=== PATIENT | female | born 1940 | race Caucasian/White ===

== ENCOUNTER 2018-03-06 14:22 | Outpatient (CLI) | payer MEDICARE, BC ==
--- NOTE | 2018-03-06 16:57 | ULT ---
BILATERAL UPPER EXTREMITY ULTRASOUND VESSEL MAPPING FOR DIALYSIS ACCESS: 03/06/18 HISTORY: 77-year-old female with ESRD. RIGHT UPPER EXTREMITY BRACHIAL ARTERY: 2.7 mm RADIAL ARTERY: 1.4 mm ULNAR ARTERY: 1.1 mm CEPHALIC VEIN Proximal Arm: 1.2 mm Mid Arm: 1.3 mm Distal Arm: 1.2 mm Antecubital Fossa: 1.5 mm Proximal Forearm: 1.2 mm Mid Forearm: 1.3 mm Distal Forearm: 0.9 mm BASILIC VEIN Proximal Arm: 3.5 mm Mid Arm: 3.0 mm Distal Arm: 2.6 mm Antecubital Fossa: 2.6 mm Proximal Forearm: 1.3 mm Mid Forearm: 1.2 mm Distal Forearm: 1.3 mm LEFT UPPER EXTREMITY BRACHIAL ARTERY: 2.9 mm RADIAL ARTERY: 1.6 mm ULNAR ARTERY: 1.3 mm CEPHALIC VEIN Proximal Arm: 1.2 mm Mid Arm: 1.0 mm Distal Arm: 1.3 mm Antecubital Fossa: 1.0 mm Proximal Forearm: 1.3 mm Mid Forearm: 1.5 mm Distal Forearm: 1.3 mm BASILIC VEIN Proximal Arm: 2.8 mm Mid Arm: 2.5 mm Distal Arm: 2.0 mm Antecubital Fossa: 1.8 mm Proximal Forearm: 1.8 mm Mid Forearm: 1.5 mm Distal Forearm: 1.0 mm POS: [facility]
== END 2018-03-06 14:23 | disposition home or self-care (01) ==
LOC: BICULT 14:22
PROVIDERS: ATTEND Internal Medicine Nephrology
DX: Z01.818 Encounter for other preprocedural examination (principal); N18.6 End stage renal disease
CPT/HCPCS: 93970; G0365

== ENCOUNTER 2018-03-13 16:37 | Inpatient (IN) | payer MEDICARE, BC ==
[~2018-03-13 16:37] MED LIST: Heparin 10,000 UNITS/ 10 ML VIAL ONE; Heparin 10,000 UNITS/1 ML VIAL ONE
[2018-03-13 17:07] LABS: #Eosinphils 0.1 thou/uL (0.0-0.7); #Lymphocytes 1.2 thou/uL (1.20-3.40); #Monocytes 0.6 thou/uL (0.11-0.59); #Neutrophils 7.4 thou/uL (1.40-6.50); %Basophils 0.5 % (0.0-1.0); %Eosinophils 1.3 % (0.0-10.0); %Lymphocytes 12.4 % (21.0-51.0); %Monocytes 6.7 % (0.0-10.0); %Neutrophils 79.2 % (42.0-75.0); Hemoglobin 13.3 g/dL (12.0-16.0); Mean Corpuscular HGB CONC 30.1 g/dL (32.0-36.0); Mean Platelet Volume 7.6 fL (7.4-10.4); Platelet Count 402 thou/uL (130-400); Red Blood Cell (RBC) Count 4.76 mill/uL (4.20-5.40); White Blood Cell (WBC) Count 9.3 thou/uL (4.8-10.8)
[2018-03-13 17:30] LABS: ALT (SGPT) 18 U/L (8-55); AST (SGOT) 19 U/L (5-34); Albumin 2.8 g/dL (3.4-4.8); Alkaline Phosphatase 143 U/L (40-150); Anion Gap 16 mmol/L (10-20); BUN (Urea Nitrogen) 41 mg/dL (9.8-20.1); Bilirubin, Total 0.4 mg/dL (0.2-1.2); Calc. Creatinine Clearance 0 mL/min (70-130); Calcium 9.1 mg/dL (7.8-10.44); Carbon Dioxide 27 mmol/L (23-31); Chloride 95 mmol/L (98-107); Estimated GFR-MDRD 9; Globulin 2.9 g/dL (2.4-3.5); Glucose 94 mg/dL (83-110); Potassium 4.3 mmol/L (3.5-5.1); Protein, Total 5.7 g/dL (6.0-8.3); Sodium 134 mmol/L (136-145)
[2018-03-13 17:35] LABS: Magnesium 1.7 mg/dL (1.6-2.6)
[2018-03-13 17:45] LABS: CKMB 5.9 ng/mL (0-6.6)
--- NOTE | 2018-03-13 19:38 | RAD ---
AP VIEW CHEST: 03/13/18 HISTORY: Dyspnea. AP view chest obtained on 03/13/18. Comparison made to a previous exam from 02/18/11. AP view chest demonstrates bilateral breast augmentation prosthesis seen which are severely calcified . There is marked calcification of the mitral annulus. There is marked calcification of the aorta. Some areas of patchy density seen in both lung bases, compatible with bibasilar atelectasis or pneumo leo. Mild pulmonary vascular congestion seen. IMPRESSION: Bibasilar areas of patchy density with loss of right and left hemidiaphragm lung interfaces compatibl e with possible bibasilar pneumonia. POS: ANJALI
[2018-03-13 21:21] LABS: Troponin I 0.053 ng/mL (< 0.028)
[2018-03-13 23:10] LABS: Troponin I 0.056 ng/mL (< 0.028)
[2018-03-13] MEDS ORDERED: Senokot S 8.6-50 MG TAB PO PRN (23:33)
[2018-03-13] MEDS ORDERED: Acetaminophen 325 MG TAB PO PRN (23:33)
[2018-03-13] MEDS ORDERED: Mometasone/Formoterol 120 PUFF INHALER INH PRN (23:37)
--- NOTE | 2018-03-14 01:51 | CON ---
DATE OF CONSULTATION: 03/13/2018 HISTORY OF PRESENT ILLNESS: Ms. Ley is a 77-year-old white female with known history of ESRD - c urrently on peritoneal dialysis. She was admitted for congestive heart failure/shortness of breath. She has had multiple admissions for the shortness of breath in the past. Etiology is combined COPD exacerbations as well as from CHF. The patient was unable to do regular peritoneal dialysis in the l ast week or so. She missed, according to patient, 1-2 sessions. Then, she was at Dr[facility]. At that time, I planned cuffed hemodialysis catheter was being done, but the patient w as unable to lie flat due to congestive heart failure. She is now at the ER for further management. We are now admitting this patient for emergent peritoneal dialysis as well as possible initiation of hemodialysis. REVIEW OF SYSTEMS: Positive for shortness of breath, no nausea, no vomiting. Increased forgetfulnes s. No fever or chills, no abdominal pain, no gross hematuria, no dysuria, no urinary frequency. Pos itive for productive cough. No fever or chills. No hematochezia, no melena. Appetite and energy le supriya is decreased. HOME MEDICATIONS: Includes the following, prednisone 20 mg tab p.o. b.i.d., Mucinex 600 mg p.o. q.12 h., simvastatin 1 tablet at bedtime, Protonix 40 mg tab once a day, Dulera oral inhaler two puffs b. i.d., Levaquin 250 mg p.o. daily, Fosrenol 750 mg t.i.d. with meals, Niferex 150 mg once a day, DuoNe b q.6 hours, Doxepin 50 mg at bedtime, Aricept 10 mg at bedtime, Sensipar 30 mg daily, Calcitriol 0.5 mcg every day. PAST MEDICAL HISTORY: 1. End-stage renal disease. 2. Hypertension. 3. Early dementia. 4. Chronic obstructive pulmonary disease. 5. Status post CHF. 6. Chronic anemia of chronic renal disease. 7. Secondary hyperparathyroidism. PAST SURGICAL HISTORY: 1. Status post PD catheter placement. 2. Status post intubation secondary to acute respiratory failure. 3. Status post upper and lower GI endoscopy. 4. Status post parathyroidectomy. 5. Status post bilateral tubal ligation. 6. Status post back surgery. SOCIAL HISTORY: The patient lives in [place] and lives alone. No alcohol use. Status post blood tr ansfusion. No IV drug abuse. Currently not smoking, but did smoke for many years. Four children. ALLERGIES: CODEINE, ERYTHROMYCIN. TRAUMA: None. IMMUNIZATIONS: Up to date. HOSPITALIZATIONS: Please see past medical history. FAMILY HISTORY: No family history of ESRD. PHYSICAL EXAMINATION: VITAL SIGNS: Blood pressure 150/78, heart rate 70, pulse oximetry 100% on 2 liters. GENERAL: Awake, supine, comfortable, not in overt distress. SKIN: Adequate turgor. HEENT: She has pinkish conjunctivae, anicteric sclerae. NECK: No neck mass, no carotid bruits, no JVD. CHEST: No deformities. LUNGS: Decreased breath sounds, no wheezing. HEART: Normal sinus rhythm. No murmur, no gallops, no rubs. ABDOMEN: Globular, soft, nontender, no masses. EXTREMITIES: No edema, no deformities. NEUROLOGIC: Moving all extremities. No tremors. No asterixes. No ataxia. LABORATORY: Of 03/13/2018, white count 9.3, hemoglobin 13.3. Sodium 134, potassium 4.3, chloride 95 , carbon dioxide 27, BUN 41, creatinine 4.86, glucose 94, calcium 9.1, AST 19, ALT 18. BNP 1333. PT H 246 on 04/28/2016. Chest x-ray pending. ASSESSMENT AND PLAN: 1. Shortness of breath, multifactorial etiology. Consider the possibility of congestive heart failu re due to his missed peritoneal dialysis. I am doing a quick 4.25% PD solution exchange of 1 liter w ith each fill volume. We will do a quick exchange and hoping we can do significant ultrafiltration/f luid removal with this patient. After the 3 quick exchange of the PD fluid, we will maintain on cont inuous cycling peritoneal dialysis at 2.5 liters fill volume using 4.25% peritoneal dialysis solution to enhance further ultrafiltration. 2. End-stage renal disease. We will continue current continuous cycling peritoneal dialysis regimen . The patient no longer interested in pursuing peritoneal dialysis. We will consult surgery for mireya cement of a cuffed hemodialysis catheter. 3. Anemia -- no indication for any Epogen at the present time. 4. Chronic obstructive pulmonary disease. Resume DuoNeb q.6 hours p.r.n. Overall, agree with salomóne nt management.
[2018-03-14 04:55] LABS: #Basophils 0.1 thou/uL (0.0-0.2); #Eosinphils 0.1 thou/uL (0.0-0.7); #Lymphocytes 1.1 thou/uL (1.20-3.40); #Monocytes 0.7 thou/uL (0.11-0.59); #Neutrophils 6.7 thou/uL (1.40-6.50); %Basophils 0.7 % (0.0-1.0); %Eosinophils 1.6 % (0.0-10.0); %Lymphocytes 12.9 % (21.0-51.0); %Monocytes 8.4 % (0.0-10.0); %Neutrophils 76.3 % (42.0-75.0); Hemoglobin 12.1 g/dL (12.0-16.0); Mean Corpuscular HGB CONC 29.3 g/dL (32.0-36.0); Mean Corpuscular Hemoglobin 27.4 pg (27.0-31.0); Mean Corpuscular Volume 93.7 fL (78.0-98.0); Mean Platelet Volume 8.2 fL (7.4-10.4); Platelet Count 386 thou/uL (130-400); RBC Distribution Width 14.1 % (11.5-14.5); Red Blood Cell (RBC) Count 4.42 mill/uL (4.20-5.40); White Blood Cell (WBC) Count 8.7 thou/uL (4.8-10.8)
--- NOTE | 2018-03-14 05:11 | HP ---
CHIEF COMPLAINT: Shortness of breath. HISTORY OF PRESENT ILLNESS: Patient is a very pleasant 77-year-old female with past medical history of hypertension and end-stage renal disease on dialysis to peritoneal dialysis, who comes into the [facility] also with a history of COPD on chronic oxygen of 2 liters who was sent in from [facility] for shortness of breath. Patient stated that she has been short of breath for the past couple of weeks. She normally sleeps in a recliner. She normally uses 2 liters of oxygen. Patient states ashley t she has not had any fevers or chills. She was recently at [facility] about 2 weeks ago and was treated for which appears to be like for possible COPD exacerbation. Patient stated that e was given steroids, which helped her feel much better. Patient also states that she had a recent chocardiogram done and was told that she had some valvular dysfunction. Patient stated that she went to see her sign painter helper today, who tried to intervene with a catheter for hemodialysis; however, [facility] patient was unable to lie flat. Her shortness of breath worsened and she was transported to the ER for further evaluation. Patient did state that she lives in [place] on her way [place] to [facility] sign painter helper's office, she ran out of her oxygen; however, she stated that she felt fine. She did not think that she required oxygen; however, when the procedure occurred in the office, she just got very very short of breath, which then concerned the physician and who asked her to come into the ER f or further evaluation. Patient denies any chest pain, any fevers, any cough more than usual. She de nies any more sputum production either. PAST MEDICAL HISTORY: As of the following: She is on end-stage renal disease on peritoneal dialysis . She has a history of COPD on 2 liters of oxygen. She has a history of hypertension. She has a hi story of gastric ulcers. PAST SURGICAL HISTORY: She has had cholecystectomy, peritoneal shunt placed. SOCIAL HISTORY: She is a former smoker. She drinks socially. She is currently a FULL CODE. REVIEW OF SYSTEMS: All negative except for the ones mentioned above in the HPI and again patient's c ode status is FULL. FAMILY HISTORY: No history of heart disease or cancer. ALLERGIES: She is allergic to CODEINE and ERYTHROMYCIN. MEDICATIONS: Per her MAR, which are as the following: Calcitriol 0.5 p.o. daily, vitamin D3 of 2000 units daily, cinacalcet (Sensipar) 30 mg daily, Aricept 10 mg at bedtime, doxepin 50 mg at bedtime, folic acid 1 p.o. daily, albuterol 3 mL q.6 hours as scheduled, iron 150 mg daily, Dulera 2 puffs alexi ly, simvastatin 40 mg daily, tiotropium 18 mcg daily. PHYSICAL EXAMINATION: VITAL SIGNS: As of the following temperature of 98.8, heart rate of 103, 20 respirations, 95% on 2 l iters, 133/69. GENERAL: She is awake, alert, oriented x3. She does not appear in significant distress. CARDIOVASCULAR: S1, S2 present. She does have a systolic murmur, which is heard in her right sterna l border and her left sternal border with some mild radiation to her right clavicle area. LUNGS: She does have decreased diminished breath sounds to bilateral lower bases. She does have marbin e mild expiratory wheeze, however, not significant. ABDOMEN: Soft, nontender. Bowel sounds are present x2. Her PD catheter looks intact. LOWER EXTREMITIES: She does have +2 pitting edema lower extremity. NEUROVASCULAR GUTIERREZ: She is intact, 5/5 upper extremity, 5/5 lower extremity strength. Sensation is intact. SKIN: She does not have any breakdown. Patient normally walks with a walker. LABORATORY RESULTS: As of the following: WBC of 9.3, hemoglobin of 13.3, hematocrit of 44.2, platel ets of 402. Chemistry: Sodium of 134, potassium 4.3, BUN of 41, creatinine of 4.86. Mild elevation of troponin. Her BNP is 133.9. Her chest x-ray does appear that she does have implants and also ap pears that she does have some bibasilar patchy density; however, patient has not had any cough or fev er. She does appear to be most likely pleural effusion. ASSESSMENT AND PLAN: Patient is a very pleasant 77-year-old female who presents to the hospital with shortness of breath. 1. Shortness of breath. This could be secondary to volume overload either from not enough dialysis versus chronic obstructive pulmonary disease exacerbation versus possible cardiac related issues. I do not have a previous echocardiogram in the system; however, she did have a recent echocardiogram do olu at [facility]. I have asked the nurses to provide a copy from there. Sin cheikh she stated that she did have some mild valvular disorder and she does have murmur on physical exam ination. Patient does not make significant urine. I do not think diuretics will be efficient with p atient. We will continue the PD dialysis per Nephrology, who has been consulted. We will also start the patient on some very low dose steroids of 20 mg daily for only 5 days to see if this would help the patient. Patient is currently requiring only 2 liters of oxygen and is not requiring any more th an her baseline. However, patient at baseline is unable to lie flat. She does have pleural effusion s, which are new from her prior 2016 x-rays. 2. History of chronic obstructive pulmonary disease. She is currently on 2 liters. We will continu e that. We will continue her DuoNebs and her home medications. 3. End-stage renal disease on dialysis. We will continue her dialysis PD for now. She was supposed to get a tunnel catheter; however, patient cannot lie flat. This is a difficult situation. 4. Deep venous thrombosis prophylaxis. We will put patient on heparin subcutaneous and continue to monitor the patient.
[2018-03-14 05:26] LABS: Anion Gap 15 mmol/L (10-20); BUN (Urea Nitrogen) 40 mg/dL (9.8-20.1); Calc. Creatinine Clearance 9 mL/min (70-130); Calcium 8.7 mg/dL (7.8-10.44); Carbon Dioxide 27 mmol/L (23-31); Chloride 99 mmol/L (98-107); Estimated GFR-MDRD 9; Glucose 107 mg/dL (83-110); Potassium 4.4 mmol/L (3.5-5.1); Sodium 137 mmol/L (136-145)
[2018-03-14] MEDS ORDERED: Heparin 5,000 UNITS/ML VIAL SC SCH (09:00)
[2018-03-14] MEDS ORDERED: Spiriva 18 MCG CAP (Box of 5 Caps) INH SCH (09:00)
--- NOTE | 2018-03-14 09:11 | PRG ---
DATE OF SERVICE: 03/14/2018 SUBJECTIVE: Ms. Ley is a 77-year-old white female with ESRD - currently on peritoneal dialysis a nd was admitted for shortness of breath secondary to congestive heart failure. This patient has been missing her peritoneal dialysis. She is confused about doing her PD. The family and the patient lee ve requested to be converted to hemodialysis. An attempt to place a dialysis catheter with the [facility] was not successful since the patient was unable to lay flat. I did initiate earlier periton eal dialysis with her yesterday due to her volume overload. Her breathing is much improved. No new complaints. No chest pain. Shortness of breath is improved. PHYSICAL EXAMINATION: VITAL SIGNS: Blood pressure is 108/60, heart rate 97, respiratory rate 16, temperature 98.1, pulse o x 97%. GENERAL: Awake, alert, supine, comfortable, not in overt distress. SKIN: Adequate turgor. HEENT: She has pinkish conjunctivae, anicteric sclerae. NECK: No neck mass, no carotid bruits, no JVD. CHEST: No deformities. LUNGS: Decreased breath sounds. Occasional wheezing. HEART: Normal sinus rhythm. No murmur, no gallops or rubs. ABDOMEN: Globular, soft, nontender, no masses. Positive for PD catheter. EXTREMITIES: Positive for edema, but no deformities. MEDICATIONS: 03/14/2018 - Reviewed. LABORATORY: 03/14/2018 - White count 8.7, hemoglobin 12.1. Sodium 137, potassium 4.4, chloride 99, carbon dioxide 27, BUN 40, creatinine 4.81, glucose 107, calcium 8.7. ASSESSMENT AND PLAN: 1. Congestive heart failure, - much improved with peritoneal dialysis. We were using a 4.25% PD valerio ution last night to enhance ultrafiltration. Due to the improved shortness of breath we will convert her to a 2.5% PD solution tonight. 2. End-stage renal disease. We will continue nocturnal peritoneal dialysis with this patient. We a re awaiting placement of a cuffed hemodialysis catheter. Once this is done, we will convert her to h emodialysis. 3. Chronic obstructive pulmonary disease. Continuing DuoNeb and prednisone. Overall, I agree with current management.
[2018-03-14] MEDS: Calcitriol 0.25 MCG CAP PO SCH (09:58)
[2018-03-14] MEDS: Famotidine 20 MG TAB PO SCH (09:58)
[2018-03-14] MEDS: Cinacalcet HCl 30 MG TAB PO SCH (09:58)
[2018-03-14] MEDS: Iron Polysaccharides Complex 150 MG CAP PO SCH (09:58)
[2018-03-14] MEDS: predniSONE 20 MG TAB PO SCH (09:58)
[2018-03-14] MEDS: Folic Acid/Vit B Comp W-C PO SCH (09:59)
[2018-03-14] MEDS ORDERED: CEFAZOLIN/Water 2 GM/20 ML SYRINGE SLOW IVP SCH ×2 (17:00→19:30)
--- NOTE | 2018-03-14 17:40 | PDOC.PN ---
- Subjective Encounter Start Date: 03/14/18 Encounter Start Time: 10:30 Patient seen and examined for Volume overload. SOB improving. No new complaints. No overnight events - Objective Resuscitation Status: Resuscitation Status FULL:Full Resuscitation MAR Reviewed: Yes Vital Signs & Weight: Vital Signs (12 hours) Temp Pulse Resp BP Pulse Ox 03/14/18 15:07 98.0 F 105 H 18 121/68 95 03/14/18 13:49 82 18 96 03/14/18 11:26 98.5 F 100 18 141/77 H 98 03/14/18 07:40 98.1 F 97 16 108/60 97 03/14/18 07:30 97 03/14/18 06:32 102 H 16 97 Weight Weight 126 lb 4.8 oz I&O: 03/13/18 03/14/18 03/15/18 06:59 06:59 06:59 Intake Total 600 Balance 600 Result Diagrams: 03/14/18 03:37 03/14/18 03:37 EKG Reviewed by me: Yes (Tele SR) Phys Exam - Physical Examination Constitutional: NAD Respiratory: no wheezing Bibasilar rales with scat rhonchi Cardiovascular: RRR, no rub Gastrointestinal: soft, non-tender, positive bowel sounds Musculoskeletal: no edema Neurological: moves all 4 limbs Dx/Plan - Plan DVT proph w/heparin, DVT proph w/SCDs 1. SOB due to Volume overload 2. ESRD on PD 3. Chronic Resp failure on home O2 4. COPD 5. HTN 6. Elevated troponins due to demand ischemia/Other issues per previous notes PLAN: Hemodialysis access Add Fluid restriction Cont Nebs with low dose steroids Cont other meds as below Review of Systems - Review of Systems Cardiovascular: negative: chest pain, palpitations, orthopnea, paroxysmal nocturnal dyspnea, edema, light headedness, other Gastrointestinal: negative: Nausea, Vomiting, Abdominal Pain, Diarrhea, Constipation, Melena, Hematochezia, Other - Medications/Allergies Allergies/Adverse Reactions: Allergies Allergy/AdvReac Type Severity Reaction Status Date / Time codeine Allergy Verified 04/27/16 21:10 erythromycin base Allergy Verified 04/27/16 21:10 Medications: Current Medications Acetaminophen (Tylenol) 650 mg PO Q4H PRN PRN Reason: Headache/Fever/Mild Pain (1-3) Albuterol/Ipratropium (Duoneb) 3 ml NEB [id number] [facility] Last Admin: 03/14/18 13:49 Dose: 3 ml Atorvastatin Calcium (Lipitor) 20 mg PO HS [facility] Calcitriol (Rocaltrol) 0.5 mcg PO DAILY [facility] Last Admin: 03/14/18 09:58 Dose: 0.5 mcg Cefazolin Sodium (Ancef) 2 gm SLOW IVP ONCALL-OR [facility] Cholecalciferol (Vitamin D3) 2,000 units PO DAILY [facility] Last Admin: 03/14/18 09:58 Dose: 2,000 units Cinacalcet (Sensipar) 30 mg PO QAM[facility] Last Admin: 03/14/18 09:58 Dose: 30 mg Donepezil HCl (Aricept) 10 mg PO HS [facility] Doxepin HCl (Sinequan) 50 mg PO HS [facility] Famotidine (Pepcid) 20 mg PO DAILY [facility] Last Admin: 03/14/18 09:58 Dose: 20 mg Heparin Sodium (Porcine) (Heparin) 5,000 units SC BID [facility] Mometasone Furoate/Formoterol Fumar (Dulera 200 Mcg/5 Mcg Inhaler) 2 puff INH BIDPRN PRN PRN Reason: SOB &/or Wheezing Polysaccharide Iron Complex (Niferex) 150 mg PO QA[facility] Last Admin: 03/14/18 09:58 Dose: 150 mg Prednisone (Prednisone) 20 mg PO QA[facility] Stop: 03/18/18 08:00 Last Admin: 03/14/18 09:58 Dose: 20 mg Senna/Docusate Sodium (Senokot S) 2 tab PO BIDPRN PRN PRN Reason: Constipation Vitamin B Complex/Vit C/Folic Acid (Nephro-Rolando Tablet) 1 tab PO DAILY [facility] Last Admin: 03/14/18 09:59 Dose: 1 tab
[2018-03-14] MEDS: Atorvastatin Calcium 20 MG TAB PO SCH (21:38)
[2018-03-14] MEDS: Donepezil HCl 10 MG TAB PO SCH (21:38)
[2018-03-14] MEDS: Doxepin HCl 25 MG CAP PO SCH (21:38)
[2018-03-14] MEDS: Heparin 5,000 UNITS/ML VIAL SC SCH (21:39)
--- NOTE | 2018-03-15 02:09 | HP ---
HISTORY OF PRESENT ILLNESS: Tri Ley is a 77-year-old female from [place] on peritoneal dialys is with catheter placed elsewhere. She is inadequate dialysis. Dr. Grimes has asked me to see her rega rding removal of her peritoneal dialysis catheter, placement of a hemodialysis catheter, and placemen t of right upper arm fistula. She did have ultrasound vein mapping both arms on 03/06/2018. Right c ephalic vein 1.2, 1.3, 1.2, 1.5 mm antecubital fossa. Basilic vein 3.5, 3.0, 2.6, 2.6 mm, antecubita l fossa 1.3 mm distally. Left cephalic vein 1.2, 1.0, 1.3, 1.0 mm antecubital fossa. Basilic vein 2 .8, 2.5, 2.0. Plan is to place a right arm fistula and a hemodialysis catheter and remove her perito lisandra dialysis catheter in the next 48 hours. ALLERGIES: CODEINE, ERYTHROMYCIN BASE. TOBACCO: None. ALCOHOL: None. MEDICATIONS: Spiriva, K-Dur, Sensipar, vitamin D3, calcitriol, Nephro-Rolando, Sinequan, Aricept, simvastatin. PAST SURGICAL HISTORY: Peritoneal dialysis catheter, laparoscopic cholecystectomy, temporary hemodia lysis catheter and recovered cholecystectomy. PAST MEDICAL HISTORY: End-stage renal disease, history of COPD on 2 liters home oxygen. Tobacco isabella sation more than 10 years ago, history of peptic ulcer disease. PHYSICAL EXAMINATION: VITAL SIGNS: 5 feet 3, 126 pounds, 22 BMI, 98 degrees, 105, 120/68. HEAD, EYES, EARS, NOSE, AND THROAT: Unremarkable. LUNGS: Clear to auscultation. CARDIAC: Regular rate and rhythm without murmur or gallop. ABDOMEN: Soft, nontender. Peritoneal dialysis catheter in place. IV: Right hand. No visibly magda rkable vein present. Palpable radial pulses. LABORATORY DATA: White count 8, hemoglobin 12.1. Basic metabolic profile was normal except for woodruff ges consistent with end-stage renal disease. BNP 1333. ASSESSMENT AND PLAN: Inadequate peritoneal dialysis. We will plan removal of her peritoneal dialysi s catheter placement, hemodialysis catheter, and right arm fistula. She possibly will need a staged basilic vein fistula or a graft pending operative findings. We will plan this Monday morning.
[2018-03-15] MEDS: predniSONE 20 MG TAB PO SCH (08:17)
[2018-03-15] MEDS: Iron Polysaccharides Complex 150 MG CAP PO SCH (08:17)
[2018-03-15] MEDS: Cinacalcet HCl 30 MG TAB PO SCH (08:17)
[2018-03-15] MEDS: Calcitriol 0.25 MCG CAP PO SCH (08:17)
[2018-03-15] MEDS: Folic Acid/Vit B Comp W-C PO SCH (08:18)
[2018-03-15] MEDS: Famotidine 20 MG TAB PO SCH (08:18)
[2018-03-15] MEDS: Heparin 5,000 UNITS/ML VIAL SC SCH ×2 (08:18→21:26)
--- NOTE | 2018-03-15 09:08 | PRG ---
DATE OF SERVICE: 03/15/2018 SUBJECTIVE: Ms. Ley is a 77-year-old white female with ESRD - currently on peritoneal dialysis. The patient is unable to do peritoneal dialysis at home. She is now being converted to hemodialysis . Surgical consult has been done for placement of a cuffed hemodialysis catheter placement. No othe r complaints, doing well. Tolerated peritoneal dialysis. She initially came in with volume overload , but this is much improved with peritoneal dialysis. PHYSICAL EXAMINATION: VITAL SIGNS: Blood pressure 131/72, heart rate 108, respiratory rate 20, temperature 98.2, pulse ox 95%. GENERAL: Noted to be awake, alert, sitting comfortable, not in distress. SKIN: Adequate turgor. HEENT: She has pinkish conjunctivae, anicteric sclerae. NECK: No neck mass, no carotid bruits, no JVD. CHEST: No deformities. LUNGS: Decreased breath sounds. No wheezing. HEART: Normal sinus rhythm. No murmur, no gallops, no rubs. ABDOMEN: Globular, soft, nontender, no masses. Positive for PD catheter. EXTREMITIES: No edema, no deformities. MEDICATIONS: 03/15/2018 - Reviewed. LABORATORY: 03/14/2018 - White count 8.7, hemoglobin 12.1. Sodium 137, potassium 4.4, chloride 99, carbon dioxide 27, BUN 40, creatinine 4.81, calcium 8.7. ASSESSMENT AND PLAN: 1. End-stage renal disease, stable. We will continue current CCPD regimen until we can get the hemo dialysis catheter placed and then we will convert her to hemodialysis. 2. Chronic obstructive pulmonary disease. Continue DuoNeb. 3. Dementia. Continue Aricept. Overall, prognosis remains guarded.
--- NOTE | 2018-03-15 17:54 | PDOC.PN ---
- Subjective Encounter Start Date: 03/15/18 Encounter Start Time: 11:00 Patient seen and examined for Volume overload. No new complaints. No overnight events - Objective Resuscitation Status: Resuscitation Status FULL:Full Resuscitation MAR Reviewed: Yes Vital Signs & Weight: Vital Signs (12 hours) Temp Pulse Resp BP Pulse Ox 03/15/18 15:56 98 F 103 H 26 H 124/59 L 96 03/15/18 14:25 98 20 94 L 03/15/18 11:59 98.5 F 112 H 26 H 134/71 98 03/15/18 10:34 109 H 20 95 03/15/18 07:10 98.2 F 108 H 20 131/72 95 03/15/18 06:36 84 18 94 L Weight Weight 123 lb 9.6 oz I&O: 03/14/18 03/15/18 03/16/18 06:59 06:59 06:59 Intake Total 900 600 Balance 900 600 Result Diagrams: 03/14/18 03:37 03/14/18 03:37 EKG Reviewed by me: Yes (Tele SR) Phys Exam - Physical Examination Constitutional: NAD Respiratory: no wheezing B/L rhonchi with bibasilar rales Cardiovascular: RRR, no rub Gastrointestinal: soft, non-tender, positive bowel sounds Musculoskeletal: no edema Neurological: moves all 4 limbs Dx/Plan - Plan DVT proph w/heparin, DVT proph w/SCDs 1. SOB due to Volume overload 2. ESRD on PD 3. Chronic Resp failure on home O2 4. COPD 5. HTN 6. Elevated troponins due to demand ischemia/Other issues per previous notes PLAN: Hemodialysis access in AM Cont Fluid restriction Cont Nebs/steroids AM labs Cont other meds as below Review of Systems - Review of Systems Respiratory: SOB with Excertion. negative: Cough, Dry, Shortness of Breath, Hemoptysis, Pleuritic Pain, Sputum, Wheezing Cardiovascular: negative: chest pain, palpitations, orthopnea, paroxysmal nocturnal dyspnea, edema, light headedness, other - Medications/Allergies Allergies/Adverse Reactions: Allergies Allergy/AdvReac Type Severity Reaction Status Date / Time codeine Allergy Verified 04/27/16 21:10 erythromycin base Allergy Verified 04/27/16 21:10 Medications: Current Medications Acetaminophen (Tylenol) 650 mg PO Q4H PRN PRN Reason: Headache/Fever/Mild Pain (1-3) Albuterol/Ipratropium (Duoneb) 3 ml NEB [id number] [facility] Last Admin: 03/15/18 14:25 Dose: 3 ml Atorvastatin Calcium (Lipitor) 20 mg PO HS [facility] Last Admin: 03/14/18 21:38 Dose: 20 mg Calcitriol (Rocaltrol) 0.5 mcg PO DAILY [facility] Last Admin: 03/15/18 08:17 Dose: 0.5 mcg Cefazolin Sodium (Ancef) 2 gm SLOW IVP ONCALL-OR [facility] Cefazolin Sodium (Ancef) 2 gm SLOW IVP ONCALL-OR [facility] Cholecalciferol (Vitamin D3) 2,000 units PO DAILY [facility] Last Admin: 03/15/18 08:18 Dose: 2,000 units Cinacalcet (Sensipar) [address] [facility] Last Admin: 03/15/18 08:17 Dose: 30 mg Donepezil HCl (Aricept) 10 mg PO [facility] Last Admin: 03/14/18 21:38 Dose: 10 mg Doxepin HCl (Sinequan) 50 mg PO [facility] Last Admin: 03/14/18 21:38 Dose: 50 mg Famotidine (Pepcid) 20 mg PO DAILY [facility] Last Admin: 03/15/18 08:18 Dose: 20 mg Heparin Sodium (Porcine) (Heparin) 5,000 units SC BID [facility] Last Admin: 03/15/18 08:18 Dose: 5,000 units Mometasone Furoate/Formoterol Fumar (Dulera 200 Mcg/5 Mcg Inhaler) 2 puff INH BIDPRN PRN PRN Reason: SOB &/or Wheezing Polysaccharide Iron Complex (Niferex) [address] [facility] Last Admin: 03/15/18 08:17 Dose: 150 mg Prednisone (Prednisone) [address] [facility] Stop: 03/18/18 08:00 Last Admin: 03/15/18 08:17 Dose: 20 mg Senna/Docusate Sodium (Senokot S) 2 tab PO BIDPRN PRN PRN Reason: Constipation Vitamin B Complex/Vit C/Folic Acid (Nephro-Rolando Tablet) 1 tab PO DAILY [facility] Last Admin: 03/15/18 08:18 Dose: 1 tab
[2018-03-15] MEDS: Doxepin HCl 25 MG CAP PO SCH (21:25)
[2018-03-15] MEDS: Donepezil HCl 10 MG TAB PO SCH (21:25)
[2018-03-15] MEDS: Atorvastatin Calcium 20 MG TAB PO SCH (21:26)
[2018-03-16 05:58] LABS: #Basophils 0.1 thou/uL (0.0-0.2); #Eosinphils 0.1 thou/uL (0.0-0.7); #Lymphocytes 1.7 thou/uL (1.20-3.40); #Monocytes 0.6 thou/uL (0.11-0.59); #Neutrophils 6.2 thou/uL (1.40-6.50); %Basophils 0.9 % (0.0-1.0); %Eosinophils 1.1 % (0.0-10.0); %Lymphocytes 19.5 % (21.0-51.0); %Monocytes 6.4 % (0.0-10.0); %Neutrophils 72.1 % (42.0-75.0); Hemoglobin 12.1 g/dL (12.0-16.0); Mean Corpuscular HGB CONC 29.6 g/dL (32.0-36.0); Mean Corpuscular Hemoglobin 27.9 pg (27.0-31.0); Mean Corpuscular Volume 94.2 fL (78.0-98.0); Mean Platelet Volume 7.4 fL (7.4-10.4); Platelet Count 364 thou/uL (130-400); Red Blood Cell (RBC) Count 4.34 mill/uL (4.20-5.40); White Blood Cell (WBC) Count 8.6 thou/uL (4.8-10.8)
[2018-03-16 06:09] LABS: Anion Gap 15 mmol/L (10-20); BUN (Urea Nitrogen) 47 mg/dL (9.8-20.1); Calc. Creatinine Clearance 8 mL/min (70-130); Calcium 8.6 mg/dL (7.8-10.44); Carbon Dioxide 24 mmol/L (23-31); Chloride 99 mmol/L (98-107); Estimated GFR-MDRD 8; Glucose 105 mg/dL (83-110); Potassium 4.1 mmol/L (3.5-5.1); Sodium 134 mmol/L (136-145)
--- NOTE | 2018-03-16 07:28 | PRG ---
DATE OF SERVICE: 03/16/2018 SUBJECTIVE: Ms. Ley is a 77-year-old white female with ESRD on peritoneal dialysis. The patient came in for shortness of breath and CHF. She has been missing her PD regimen. She requested to be converted to hemodialysis due to the fact she is unable to do the PD regularly. This morning she is feeling better. She is scheduled for placement of cuffed hemodialysis catheter. No acute events not ed last night. PHYSICAL EXAMINATION: VITAL SIGNS: Blood pressure 138/75, heart rate 116, respiratory rate is 19, temperature 97.9, pulse ox 96%. GENERAL: Noted to be awake, comfortable, not in overt distress. SKIN: Adequate turgor. HEENT: Pinkish conjunctivae, anicteric sclerae. NECK: No neck mass, no carotid bruits, no JVD. CHEST: No deformities. LUNGS: Decreased breath sounds, occasional. No wheezing. HEART: Normal sinus rhythm. No murmur, no gallops, no rubs. ABDOMEN: Globular, soft, nontender, no masses. Positive for PD catheter. EXTREMITIES: No edema. MEDICATIONS: 03/16/2018 - Reviewed. LABORATORY: 03/16/2018 - Sodium 134, potassium 4.1, chloride 99, carbon dioxide 24, BUN 47, creatini ne 5, glucose 105, calcium 8.6, white count 8.6, hemoglobin 12.1. ASSESSMENT AND PLAN: 1. End-stage renal disease, stable. Continue current CCPD regimen. Using 2.5% PD solution. The pa tient to be converted to hemodialysis. She is scheduled for hemodialysis catheter placement. 2. Shortness of breath, stable, multifactorial etiology, congestive heart failure/chronic obstructiv e pulmonary disease exacerbation. Continue current management. Max out fluid removal with dialysis. I have discussed the case with the dialysis nurse and we will do hemodialysis in a.m.
[2018-03-16] MEDS ORDERED: CEFAZOLIN 2 GM/50 ML BAG ONE (08:45)
[2018-03-16] MEDS ORDERED: Protamine Sulfate 50 MG/5 ML VIAL ONE (09:49)
[2018-03-16] MEDS ORDERED: Heparin 5,000 UNITS/ML VIAL ONE (09:49)
[2018-03-16] MEDS ORDERED: Lidocaine 2% PF 5 ML VIAL ONE (09:49)
[2018-03-16] MEDS ORDERED: Bupivacaine/Epinephrine 0.25% 30 ML VIAL ONE (09:49)
[2018-03-16] MEDS ORDERED: Sodium Chloride 0.9% 20 ML ONE (09:50)
[2018-03-16] MEDS ORDERED: Ketamine 50 MG/ML (10ML VIAL) ONE (09:58)
[2018-03-16] MEDS ORDERED: Midazolam HCl 2 mg/2 ml Vial ONE (09:58)
[2018-03-16] MEDS ORDERED: traMADol HCl 50 MG TAB PO PRN ×2 (10:46)
[2018-03-16] MEDS ORDERED: Heparin 10,000 UNITS/1 ML VIAL ONE (10:46)
[2018-03-16] MEDS ORDERED: Heparin 1,000 UNITS/ML VIAL ONE (11:11)
[2018-03-16] MEDS ORDERED: Ventilator Sedation Protocol 1 EACH FS SCH (13:01)
[2018-03-16] MEDS ORDERED: Lorazepam 2 MG/ML VIAL SLOW IVP PRN (13:12)
[2018-03-16] MEDS ORDERED: Morphine 2 MG/ML SYRINGE SLOW IVP PRN (13:12)
[2018-03-16] MEDS ORDERED: Fentanyl BOLUS 250 ML IVPB PRN (13:12)
[2018-03-16] MEDS ORDERED: fentaNYL Citrate/PF 2,000 MCG in Sodium Chloride 0.9% 60 ML IV SCH (13:12)
[2018-03-16] MEDS ORDERED: Propofol BOLUS 1,000 MG/100 ML VIAL IV PRN (13:12)
[2018-03-16] MEDS ORDERED: Propofol 1,000 MG/100 ML VIAL IV PRN (13:12)
--- NOTE | 2018-03-16 13:13 | OP ---
DATE OF PROCEDURE: 03/13/2018 PREOPERATIVE DIAGNOSES: Inadequate peritoneal dialysis catheter function, needs to convert hemodialy sis, left antecubital IV placed by nursing despite orders not to do. POSTOPERATIVE DIAGNOSES: Inadequate peritoneal dialysis catheter function, needs to convert hemodial ysis, left antecubital IV placed by nursing despite orders not to do so. Patent bilateral internal j ugular veins, but occluded outflow. PROCEDURE: Right arm primary fistula, perforating branch antecubital vein to proximal radial artery with outflow basilic vein. Short segment of cephalic vein patent, but occluded distal upper arm, ret rograde antecubital vein preserved, could not place coronary dilators because of anatomic considerati ons. Removal of peritoneal dialysis catheter. Successful cannulation under ultrasound guidance of r ight and left internal jugular veins, but J wire would not thread. Right femoral vein cuffed tunnel hemodialysis catheter, left femoral vein central line, removal of left antecubital IV. SURGEON: Dr. Huseyin Le ANESTHESIA: General. Postoperatively, she was transferred to the ICU. PROCEDURE: The patient was taken to the operating room where under general anesthesia, the right upp er extremity, neck, chest, and abdomen prepared with ChloraPrep, draped in routine fashion. Incision made in the proximal volar forearm just below the antecubital fossa longitudinally, carried down the skin and subcutaneous tissue and a small antecubital vein and slightly larger cephalic vein identifi ed. The communicating branch to the basilic vein identified. This was carefully dissected free. Th e antecubital vein was small to moderate size. Branches divided 4-0 silk ties and clips. Perforatin g branch antecubital vein dissected free. Branches divided between clips and 4-0 silk ties, spatulat ed over a branch point. The perforating branch antecubital vein fed the cephalic vein and then retro grade communicated to the communicating branch to the basilic vein. The patient was given 5000 units heparin intravenously. After adequate circulation time, the brachial, ulnar, and radial arteries cl amped and longitudinal arteriotomy made within the proximal radial artery for a 2 cm anastomosis and perforating branch of the antecubital vein spatulated over branch points and end vein to side proxima l radial artery anastomosis created with continuous suture of 6-0 Prolene. Good hemostasis obtained with 6-0 Prolene. Vascular control was released and there was a good Doppler signal in the basilic v ein outflow as well as this short segment of cephalic vein upper arm outflow. Good hemostasis obtain ed. Subcutaneous tissues approximated with 3-0 Monocryl, skin with subdermal 4-0 Monocryl and DermaG lue applied. I then turned my attention to the internal jugular veins were both were cannulated with trocar catheters under ultrasound guidance, but the J wires would not thread. After some persistenc e these sites abandoned. A peritoneal dialysis catheter was removed by dividing the peritoneal dialysis catheter and dissectin g the catheter free from the subcutaneous tissue removing both cuffs and catheter intact and dressing applied. We then prepped the lower abdomen, groins, and thighs and prepared them with ChloraPrep, draped in ro utine fashion. Seldinger technique used to place a triple lumen catheter in left groin. J-wire dawyne marybel. Catheter secured with 2 interrupted sutures of 3-0 nylon. Sterile dressing applied. Each port aspirated blood and flushed with heparin saline solution. On the right side, exit site, a stab incision made over the right anterior lateral thigh mid and usin g the tunneling device, precurved angiodynamics cuffed tunnel dialysis catheter tunneled between the 2 incisions, placing the fabric cuff beneath the skin exit site. It was secured with 3-0 nylon sutur e. Small and medium sized dilators placed over the J-wire into the femoral vein. Dilator and pull-a way sheath placed over the J-wire into the femoral vein and dilator and J-wire removed and catheter p laced with a pull-away sheath. Fluoroscopically, catheter noted to be in good position in the inferi or vena cava. Subcutaneous tissues approximated with 3-0 Monocryl, skin with subdermal 4-0 Monocryl and DermaGlue applied. Each port aspirated of blood and flushed saline solution and then heparinized saline solution 1000 heparin per mL indicated volume of the port.
[2018-03-16] MEDS ORDERED: PROPOFOL 200 MG/20 ML VIAL ONE (13:22)
[2018-03-16] MEDS ORDERED: ePHEDrine/0.9% NaCl/PF SYRINGE 50 mg/10 ml ONE (13:22)
[2018-03-16] MEDS ORDERED: PHENYLEPHRINE-NS 100 MCG/ML 10 ML SYRINGE ONE (13:22)
[2018-03-16] MEDS ORDERED: Ondansetron PF 4 MG/2 ML Vial ONE (13:22)
[2018-03-16] MEDS ORDERED: Calcium Chloride 1 GM/10 ML Abboject SYRINGE ONE (13:22)
[2018-03-16] MEDS ORDERED: Heparin 10,000 UNITS/ 10 ML VIAL ONE (13:22)
[2018-03-16 13:25] LABS: Hemoglobin 11.1 g/dL (12.0-16.0)
[2018-03-16] MEDS: predniSONE 20 MG TAB PO SCH (13:32)
[2018-03-16] MEDS: Folic Acid/Vit B Comp W-C PO SCH (13:32)
[2018-03-16] MEDS: Cinacalcet HCl 30 MG TAB PO SCH (13:32)
[2018-03-16] MEDS: Famotidine 20 MG TAB PO SCH (13:32)
[2018-03-16] MEDS: Iron Polysaccharides Complex 150 MG CAP PO SCH (13:32)
[2018-03-16] MEDS: Calcitriol 0.25 MCG CAP PO SCH (13:32)
[2018-03-16] MEDS: Heparin 5,000 UNITS/ML VIAL SC SCH ×2 (13:33→21:19)
[2018-03-16 13:50] LABS: Actual Bicarbonate (HCO3a) 19.3 mEq/L (22-28); Base Excess (BEa) -7.1 mEq/L (-2.0 to +3.0); CO2 Tension 42.2 mmHg (35.0-45.0); Calcium, Ionized 1.16 mmol/L (1.12-1.30); Hemoglobin (Hb) 12.2 g/dL (12.0-16.0); O2 Tension (PaO2) 148.3 mmHg (> 70.0); Potassium - ABG Lab 3.72 mmol/L (3.70-5.30); pH, Arterial 7.28 (7.35-7.45)
[2018-03-16 13:51] LABS: Puncture Site LRA
--- NOTE | 2018-03-16 14:24 | RAD ---
AP VIEW CHEST: HISTORY: Intubated patient. FINDINGS: AP view chest is obtained on 03/16/2018. Comparison is made to previous exam from 03/13/2018. AP view chest demonstrates endotracheal tube in good position. Bilateral calcified breast augmentati on is seen. There is an endovascular catheter distal tip overlying the lower thoracic spine. I susp ect that this may represent a dialysis catheter in the IVC. Bilateral pleural effusions seen. Pulmonary vascular congestion seen. Calcification of the mitral a nnulus seen. IMPRESSION: Intubated patient with bilateral pleural effusions. POS: [facility]
[2018-03-16] MEDS ORDERED: Albuterol Sulfate 2.5 mg/0.5 ml Neb NEB SCH (14:30)
[2018-03-16] MEDS ORDERED: Albuterol Sulfate 2.5 mg/3 ml Neb ONE (14:47)
[2018-03-16] MEDS ORDERED: Mometasone/Formoterol 120 PUFF INHALER INH SCH (15:30)
--- NOTE | 2018-03-16 19:28 | PDOC.PN ---
- Subjective Encounter Start Date: 03/16/18 Encounter Start Time: 19:25 Subjective: f/u for ESRD with prior PD converting to HD. s/p RUE AV fistula. -: Remains on mech ventilation post AV fistula placement. - Objective Resuscitation Status: Resuscitation Status FULL:Full Resuscitation MAR Reviewed: Yes Vital Signs & Weight: Vital Signs (12 hours) Temp Pulse Resp BP BP Pulse Ox 03/16/18 18:35 107 H 14 100 03/16/18 18:00 14 03/16/18 17:00 98.2 F 03/16/18 15:58 98.6 F 14 03/16/18 14:50 109 H 136/45 L 03/16/18 13:48 12 99 03/16/18 13:47 98.1 F 03/16/18 13:01 12 03/16/18 12:50 94 03/16/18 07:57 98.3 F 112 H 24 H 149/66 H 94 L Weight Weight 125 lb Most Recent Monitor Data Heart Rate from ECG 106 NIBP 116/63 NIBP BP-Mean 75 Respiration from ECG 14 SpO2 100 I&O: 03/15/18 03/16/18 03/17/18 06:59 06:59 06:59 Intake Total 900 600 37.3 Output Total 0 Balance 900 600 37.3 Result Diagrams: 03/16/18 13:07 03/16/18 05:36 Radiology Reviewed by me: Yes (PCXR - bilat pleural effusions, ETT in place) EKG Reviewed by me: Yes (Tele - SR) Phys Exam - Physical Examination sedate on mech ventilation, ETT in place HEENT: sclera anicteric, oral pharynx no lesions Neck: no nodes, no JVD, supple, full ROM basilar coarse sounds S1, S2, II/ YENNY in RUSB Cardiovascular: RRR, no rub, gallop Gastrointestinal: soft, non-tender, no distention, positive bowel sounds RUE AV fistula site R femoral temp HD catheter Musculoskeletal: pulses present, edema present sedate on mech ventilation Skin: normal turgor, cap refill <2 seconds Dx/Plan (1) Acute on chronic respiratory failure with hypoxia Code(s): J96.21 - ACUTE AND CHRONIC RESPIRATORY FAILURE WITH HYPOXIA Status: Acute Comment: SIMV @ 40% FIO2, wean as clinically indicated, PCXR in am (2) ESRD on peritoneal dialysis Code(s): N18.6 - END STAGE RENAL DISEASE; Z99.2 - DEPENDENCE ON RENAL DIALYSIS Status: Chronic Comment: Transitioning to HD, s/p RUE AV fistula and R femoral temp HD cath placement (3) Volume overload Code(s): E87.70 - FLUID OVERLOAD, UNSPECIFIED Status: Acute Comment: Due to ESRD and non-compliance with PD (4) Physical deconditioning Code(s): R53.81 - OTHER MALAISE Status: Chronic Comment: PT for mobilization - Plan PT/OT, social scientist, respiratory therapy, DVT proph w/SCDs Continue mech ventilation weaning as clincally indicated -: HD per Renal service -: Continue Duonebs/Dulera and Prednisone -: Diprivan for sedation -: AM lab: BMP, CBC, Mg++, ABG * .
[2018-03-16] MEDS: Atorvastatin Calcium 20 MG TAB PO SCH (21:19)
[2018-03-16] MEDS: Doxepin HCl 25 MG CAP PO SCH (21:19)
[2018-03-16] MEDS: Donepezil HCl 10 MG TAB PO SCH (21:19)
--- NOTE | 2018-03-16 23:52 | CON ---
DATE OF CONSULTATION: 03/16/2018 HISTORY OF PRESENT ILLNESS: Tri Ley is a 77-year-old female with history of long-term peritoneal dialysis. She sees Dr. Grimes and apparently is here for removal of peritoneal catheter and placement of a hemodialysis catheter since she was having ongoing issues with worsening renal status. She went to surgery today and has had access placed in. She left intubated on the vent. She is to [facility] dialysis before we try to extubate her. X-ray shows bilateral pleural effusions, left greater than right. The patient has seen Dr. Franks in our office before. She has diagnoses of COPD, low flow O2, histo ry of hypertension, peptic ulcer disease, peritoneal dialysis and renal failure. PAST SURGICAL HISTORY: Cholecystectomy, access. SOCIAL HISTORY: Tobacco previous. Alcohol minimal. MEDICATIONS FROM HOME: Includes Spiriva once a day, potassium, Dulera. ALLERGIES: ERYTHROMYCIN, CODEINE. REVIEW OF SYSTEMS: Otherwise unobtainable. She is intubated on the vent, though she is responsive, complaining of pain. We are going to start low dose fentanyl. She is being dialyzed. PHYSICAL EXAMINATION: VITAL SIGNS: Blood pressure 140/70, sats 98%. CHEST: Decreased breath sounds, no wheezing. CARDIAC: Normal S1, S2. No gallops. ABDOMEN: Soft. No masses. LABORATORY DATA: White count 8,000, hemoglobin and hematocrit 12 and 40, platelet count 364. A pO2 of 148, pCO2 of on FiO2, creatinine 5. IMPRESSION: Respiratory failure, bilateral pleural effusion, chronic renal failure, chronic obstruct bony pulmonary disease. Wean when x-ray is stable postdialysis. In the meantime, neb treatment and supportive care. We will follow. Forty-five minutes critical care time.
[2018-03-17 04:13] LABS: #Basophils 0.1 thou/uL (0.0-0.2); #Eosinphils 0.1 thou/uL (0.0-0.7); #Lymphocytes 1.6 thou/uL (1.20-3.40); #Monocytes 0.8 thou/uL (0.11-0.59); #Neutrophils 5.9 thou/uL (1.40-6.50); %Eosinophils 1.3 % (0.0-10.0); %Monocytes 9.8 % (0.0-10.0); Hemoglobin 9.6 g/dL (12.0-16.0); Mean Corpuscular HGB CONC 31.5 g/dL (32.0-36.0); Mean Corpuscular Hemoglobin 28.6 pg (27.0-31.0); Mean Corpuscular Volume 90.8 fL (78.0-98.0); Mean Platelet Volume 7.9 fL (7.4-10.4); Platelet Count 308 thou/uL (130-400); Red Blood Cell (RBC) Count 3.37 mill/uL (4.20-5.40); White Blood Cell (WBC) Count 8.6 thou/uL (4.8-10.8)
[2018-03-17 04:28] LABS: Anion Gap 13 mmol/L (10-20); BUN (Urea Nitrogen) 43 mg/dL (9.8-20.1); Calc. Creatinine Clearance 8 mL/min (70-130); Calcium 8.3 mg/dL (7.8-10.44); Carbon Dioxide 26 mmol/L (23-31); Chloride 102 mmol/L (98-107); Estimated GFR-MDRD 8; Glucose 90 mg/dL (83-110); Magnesium 1.4 mg/dL (1.6-2.6); Potassium 4.3 mmol/L (3.5-5.1); Sodium 137 mmol/L (136-145)
[2018-03-17 06:43] LABS: Actual Bicarbonate (HCO3a) 24.2 mEq/L (22-28); Base Excess (BEa) 0.4 mEq/L (-2.0 to +3.0); Calcium, Ionized 1.11 mmol/L (1.12-1.30); Carboxyhemoglobin (COHb) 1.4 gm% (0.0-3.0); Hemoglobin (Hb) 10.6 g/dL (12.0-16.0); O2 Tension (PaO2) 110.5 mmHg (> 70.0); Potassium - ABG Lab 4.03 mmol/L (3.70-5.30); pH, Arterial 7.45 (7.35-7.45)
[2018-03-17 06:46] LABS: Puncture Site LRA
[2018-03-17] MEDS: Cinacalcet HCl 30 MG TAB PO SCH (08:35)
[2018-03-17] MEDS: Calcitriol 0.25 MCG CAP PO SCH (08:35)
[2018-03-17] MEDS: Folic Acid/Vit B Comp W-C PO SCH (08:35)
[2018-03-17] MEDS: predniSONE 20 MG TAB PO SCH (08:36)
[2018-03-17] MEDS: Famotidine 20 MG TAB PO SCH (08:36)
[2018-03-17] MEDS: Heparin 5,000 UNITS/ML VIAL SC SCH ×2 (08:37→21:59)
[2018-03-17] MEDS ORDERED: DC Sedation Protocol FS ONE (08:44)
[2018-03-17] MEDS: Iron Polysaccharides Complex 150 MG CAP PO SCH (09:30)
--- NOTE | 2018-03-17 09:57 | PRG ---
DATE OF SERVICE: 03/17/2018 SUBJECTIVE: Tri Ley is doing well this morning. She is on the ventilator, but eyes are open and she responds appropriately. They are beginning another dialysis. OBJECTIVE: LUNGS: Clear to auscultation. CARDIAC: Regular rate and rhythm. ABDOMEN: Soft. Patent internal jugular veins, but outflow tracts occluded from previous dialysis access, prohibiting central line or hemodialysis catheter placement requiring placement of hemodialysis catheter in the right femoral vein and central line left femoral vein. Iatrogenic injury left antecubital vein by IV access, removed intraoperatively, requiring central line, status post right arm fistula with outflow of primary basilic vein. If this matures, she will need a basilic vein transposition fistula in the future. She has had removal of PD catheter and that surgical site looks good. Wound Care will wash this daily with soap and water and apply antibiotic ointment and Band-Aid or dressings as appropriat e. ASSESSMENT AND PLAN: Respiratory failure due to fluid overload and inadequate peritoneal dialysis. She has good thrill and bruit in her right arm fistula. At this point, I will see her as needed. Sh gurpreet should follow up in my office in 3-4 weeks.
--- NOTE | 2018-03-17 11:22 | RAD ---
PORTABLE CHEST 1 VIEW: Date: 03/17/18 Time: 0503 hours HISTORY: Respiratory failure. FINDINGS: Comparison made with exam from previous day. Endotracheal and nasogastric tubes remain in place. Bilateral calcified breast implants are again not ed. The endovascular catheter with distal tip overlying the lower thoracic spine (likely dialysis cat heter in IVC) is again seen. Bilateral pleural effusions are again noted. No pneumothoraces are seen. There is pulmonary vascular congestion. IMPRESSION: Stable exam. POS: [facility]
--- NOTE | 2018-03-17 12:36 | PRG ---
DATE OF SERVICE: 03/17/2018 SUBJECTIVE: Ms. Ley is a 77-year-old white female with known history of ESRD. She had a PD cath eter pulled out and a cuffed hemodialysis catheter has been placed on the right femoral groin. Alicia zheng is now wishing to convert to hemodialysis. She underwent 2-hour dialysis today and tolerated said treatment. We removed about 2 liters of fluid with her. No new complaints today, no chest pain or shortness of breath. OBJECTIVE: VITAL SIGNS: Blood pressure 133/65, heart rate 117, respiratory rate 17, pulse ox 100%. GENERAL: Noted to be awake, comfortable, not in distress. SKIN: Adequate turgor. HEENT: She has slightly pale conjunctivae, anicteric sclerae. NECK: No neck mass, no carotid bruits, no JVD. CHEST: No deformities. LUNGS: Decreased breath sounds. Occasional wheezing. HEART: Tachycardic. No gallops, no rubs. ABDOMEN: Globular, soft, nontender, no masses. EXTREMITIES: No edema. MEDICATIONS: Medications of 03/17/2018 reviewed. LABORATORY DATA: Laboratories of 03/17/2018, white count 8.6, hemoglobin 9.6. Sodium 137, potassium 4.3, chloride 102, carbon dioxide 26, BUN 43, creatinine 5.12, calcium 8.3, glucose 90, magnesium 1. 4. ASSESSMENT AND PLAN: End-stage renal disease, stable. Patient underwent 2-hour hemodialysis today. We removed about 2 liters of fluid which she tolerated. Our plan is to continue 3 times a week hemo dialysis with this patient. Consider discharge today or in a.m.
--- NOTE | 2018-03-17 14:14 | PRG ---
DATE OF SERVICE: 03/17/2018 SUBJECTIVE: Tri Ley remains intubated on the vent, being dialyzed. X-ray still shows bilateral pleural effusion, though she is clearly much more responsive. OBJECTIVE: VITAL SIGNS: This morning, blood pressure 110/60, respirations 14, sats 90% . CHEST: Chest reveals decreased breath sounds, no wheezing. CARDIAC: Normal S1, S2, no gallops masses. LABORATORY DATA: A pO2 is 110, pCO2 is 36, pH (00:20) on 30% and rate of 14. Her white count 8.6, H and H 9 and 30, platelet count is normal. IMPRESSION: Respiratory failure, congestive heart failure, renal failure, severe deconditioning. PLAN: She is going to be weaned and extubated post-dialysis, neb treatment and supportive care. One-half hour critical care time.
--- NOTE | 2018-03-17 14:16 | PDOC.PN ---
- Subjective Encounter Start Date: 03/17/18 Encounter Start Time: 08:20 Pt seen for followup re: acute on chronic hypoxic respiratory failure. Intubated, unable to complete ROS. - Objective Resuscitation Status: Resuscitation Status FULL:Full Resuscitation MAR Reviewed: Yes Vital Signs & Weight: Vital Signs (12 hours) Temp Pulse Resp BP Pulse Ox 03/17/18 13:55 117 H 20 03/17/18 11:42 98.4 F 117 H 20 130/60 91 L 03/17/18 11:34 91 L 03/17/18 09:00 114 H 28 H 92 L 03/17/18 07:54 14 98 03/17/18 07:00 98.5 F 03/17/18 06:38 107 H 03/17/18 06:00 14 03/17/18 04:00 98.4 F 14 Weight Weight 129 lb 13.636 oz Most Recent Monitor Data Heart Rate from ECG 120 NIBP 137/59 NIBP BP-Mean 78 Respiration from ECG 18 SpO2 96 I&O: 03/16/18 03/17/18 03/18/18 06:59 06:59 06:59 Intake Total 600 137.3 300 Output Total 175 0 Balance 600 -37.7 300 Result Diagrams: 03/17/18 04:00 03/17/18 04:00 EKG Reviewed by me: Yes (Tele: NSR) Phys Exam - Physical Examination Intubated HEENT: moist MMs ETT Arturo crackles Cardiovascular: RRR Gastrointestinal: soft Neurological: moves all 4 limbs Psychiatric: normal affect Dx/Plan (1) Acute on chronic respiratory failure with hypoxia Code(s): J96.21 - ACUTE AND CHRONIC RESPIRATORY FAILURE WITH HYPOXIA Status: Acute Comment: Pt to be extubated later today (2) Volume overload Code(s): E87.70 - FLUID OVERLOAD, UNSPECIFIED Status: Acute Comment: Due to ESRD and non-compliance with PD; not due to CHF exacerbation (3) ESRD on peritoneal dialysis Code(s): N18.6 - END STAGE RENAL DISEASE; Z99.2 - DEPENDENCE ON RENAL DIALYSIS Status: Chronic Comment: Transitioning to HD, s/p RUE AV fistula and R femoral temp HD cath placement - Plan * . Review of Systems - Medications/Allergies Allergies/Adverse Reactions: Allergies Allergy/AdvReac Type Severity Reaction Status Date / Time codeine Allergy Verified 04/27/16 21:10 erythromycin base Allergy Verified 04/27/16 21:10 Medications: Current Medications Acetaminophen (Tylenol) 1,000 mg PO Q6H PRN PRN Reason: Mild Pain (1-3) 1ST LINE Albuterol/Ipratropium (Duoneb) 3 ml NEB [id number] [facility] Last Admin: 03/17/18 13:55 Dose: 3 ml Atorvastatin Calcium (Lipitor) 20 mg PO HS [facility] Last Admin: 03/16/18 21:19 Dose: 20 mg Calcitriol (Rocaltrol) 0.5 mcg PO DAILY [facility] Last Admin: 03/17/18 08:35 Dose: 0.5 mcg Cefazolin Sodium (Ancef) 2 gm SLOW IVP ONCALL-OR [facility] Cholecalciferol (Vitamin D3) 2,000 units PO DAILY [facility] Last Admin: 03/17/18 08:36 Dose: 2,000 units Cinacalcet (Sensipar) 30 [address] [facility] Last Admin: 03/17/18 08:35 Dose: Not Given Donepezil HCl (Aricept) 10 mg PO [facility] Last Admin: 03/16/18 21:19 Dose: 10 mg Doxepin HCl (Sinequan) 50 mg PO [facility] Last Admin: 03/16/18 21:19 Dose: 50 mg Famotidine (Pepcid) 20 mg PO DAILY [facility] Last Admin: 03/17/18 08:36 Dose: 20 mg Heparin Sodium (Porcine) (Heparin) 5,000 units SC BID [facility] Last Admin: 03/17/18 08:37 Dose: 5,000 units Mometasone Furoate/Formoterol Fumar (Dulera 200 Mcg/5 Mcg Inhaler) 2 puff INH BIDPRN [facility] Polysaccharide Iron Complex (Niferex) 150 mg PO QA-[facility] Last Admin: 03/17/18 09:30 Dose: 150 mg Prednisone (Prednisone) 20 mg PO [facility] Stop: 03/18/18 08:00 Last Admin: 03/17/18 08:36 Dose: 20 mg Senna/Docusate Sodium (Senokot S) 2 tab PO BIDPRN PRN PRN Reason: Constipation Vitamin B Complex/Vit C/Folic Acid (Nephro-Rolando Tablet) 1 tab PO DAILY [facility] Last Admin: 03/17/18 08:35 Dose: 1 tab
[2018-03-17] MEDS: Donepezil HCl 10 MG TAB PO SCH (22:00)
[2018-03-17] MEDS: Atorvastatin Calcium 20 MG TAB PO SCH (22:00)
[2018-03-17] MEDS: Doxepin HCl 25 MG CAP PO SCH (22:04)
[2018-03-18] MEDS: Iron Polysaccharides Complex 150 MG CAP PO SCH (07:47)
[2018-03-18] MEDS: Famotidine 20 MG TAB PO SCH (07:49)
[2018-03-18] MEDS: Cinacalcet HCl 30 MG TAB PO SCH (07:49)
[2018-03-18] MEDS: Folic Acid/Vit B Comp W-C PO SCH (07:50)
[2018-03-18] MEDS: predniSONE 20 MG TAB PO SCH (07:50)
[2018-03-18] MEDS: Calcitriol 0.25 MCG CAP PO SCH (07:50)
[2018-03-18] MEDS: Heparin 5,000 UNITS/ML VIAL SC SCH ×2 (07:53→20:25)
[2018-03-18] MEDS ORDERED: Heparin 1,000 UNITS/ML VIAL ONE (11:11)
--- NOTE | 2018-03-18 11:18 | PRG ---
DATE OF SERVICE: 03/18/2018 SUBJECTIVE: Ms. Ley is a 77-year-old white female with ESRD and recently was admitted for shortn ess of breath. This was secondary to congestive heart failure/chronic obstructive pulmonary disease exacerbation. She has also desired to stop bleeding and get converted to hemodialysis. She is now u ndergoing hemodialysis. I am at the bedside supervising her dialysis. We will do a 3-hour dialysis treatment with this patient. No new complaints. No chest pain or shortness of breath. PHYSICAL EXAMINATION: VITAL SIGNS: Blood pressure 135/65, heart rate 112, temperature 98.5, respiratory rate 18, pulse ox 94%. GENERAL: Awake, comfortable, not in distress. SKIN: Adequate turgor. HEENT: Slightly pale conjunctivae, anicteric sclerae. NECK: No neck mass, no carotid bruits, no JVD. CHEST: No deformities. LUNGS: Decreased breath sounds. Occasional wheezing. HEART: Tachycardic, no murmur, no gallops, no rubs. ABDOMEN: Globular, soft, nontender, no masses. EXTREMITIES: No edema. MEDICATIONS: Of 03/18/2018 reviewed. LABORATORY: Of 03/17/2018: White count 8.6, hemoglobin 9.6. Sodium 137, potassium 4.3, chloride 10 2, carbon dioxide 26, BUN 43, creatinine 5.12, magnesium 1.4. ASSESSMENT AND PLAN: 1. Anemia. Start Epogen 7500 units subcu every week. 2. End-stage renal disease. Continue hemodialysis regimen. Tolerating said treatment. I am at the bedside supervising her dialysis. 3. Dementia, supportive care. Currently on Aricept.
--- NOTE | 2018-03-18 12:23 | PDOC.PN ---
- Subjective Encounter Start Date: 03/18/18 Encounter Start Time: 07:20 Pt seen for followup re: acute on chronic hypoxic respiratory failure. Feels better. Denies chest pain, shortness of breath, fevers or chills. - Objective Resuscitation Status: Resuscitation Status FULL:Full Resuscitation MAR Reviewed: Yes Vital Signs & Weight: Vital Signs (12 hours) Temp Pulse Resp BP Pulse Ox 03/18/18 07:28 98.5 F 112 H 18 135/65 94 L 03/18/18 06:18 109 H 24 H 98 03/18/18 03:54 99.2 F 114 H 14 141/67 H 92 L Weight Weight 122 lb 6.4 oz Most Recent Monitor Data Heart Rate from ECG 120 NIBP 137/59 NIBP BP-Mean 78 Respiration from ECG 18 SpO2 96 I&O: 03/17/18 03/18/18 03/19/18 06:59 06:59 06:59 Intake Total 137.3 300 250 Output Total 175 0 Balance -37.7 300 250 Result Diagrams: 03/17/18 04:00 03/17/18 04:00 EKG Reviewed by me: Yes (Tele: sinus tachycardia) Phys Exam - Physical Examination Constitutional: NAD HEENT: moist MMs Neck: supple Respiratory: clear to auscultation bilateral Cardiovascular: RRR Gastrointestinal: positive bowel sounds Neurological: moves all 4 limbs Psychiatric: normal affect Dx/Plan (1) Acute on chronic respiratory failure with hypoxia Code(s): J96.21 - ACUTE AND CHRONIC RESPIRATORY FAILURE WITH HYPOXIA Status: Acute Comment: Pt extubated yesterday (2) Volume overload Code(s): E87.70 - FLUID OVERLOAD, UNSPECIFIED Status: Acute Comment: dialysis per nephrology service (3) ESRD on peritoneal dialysis Code(s): N18.6 - END STAGE RENAL DISEASE; Z99.2 - DEPENDENCE ON RENAL DIALYSIS Status: Chronic Comment: Pt to have dialysis (transitioning to HD from PD) - Plan * . Review of Systems - Review of Systems Respiratory: negative: Cough, Shortness of Breath, SOB with Excertion, Pleuritic Pain, Wheezing Cardiovascular: negative: chest pain, palpitations, orthopnea, paroxysmal nocturnal dyspnea, edema, light headedness - Medications/Allergies Allergies/Adverse Reactions: Allergies Allergy/AdvReac Type Severity Reaction Status Date / Time codeine Allergy Verified 04/27/16 21:10 erythromycin base Allergy Verified 04/27/16 21:10 Medications: Current Medications Acetaminophen (Tylenol) 1,000 mg PO Q6H PRN PRN Reason: Mild Pain (1-3) 1ST LINE Albuterol/Ipratropium (Duoneb) 3 ml NEB [id number] [facility] Last Admin: 03/18/18 06:18 Dose: 3 ml Atorvastatin Calcium (Lipitor) 20 mg PO HS [facility] Last Admin: 03/17/18 22:00 Dose: 20 mg Calcitriol (Rocaltrol) 0.5 mcg PO DAILY [facility] Last Admin: 03/18/18 07:50 Dose: 0.5 mcg Cefazolin Sodium (Ancef) 2 gm SLOW IVP ONCALL-OR [facility] Cholecalciferol (Vitamin D3) 2,000 units PO DAILY [facility] Last Admin: 03/18/18 07:48 Dose: 2,000 units Cinacalcet (Sensipar) 30 mg PO QAM[facility] Last Admin: 03/18/18 07:49 Dose: 30 mg Donepezil HCl (Aricept) 10 mg PO HS [facility] Last Admin: 03/17/18 22:00 Dose: 10 mg Doxepin HCl (Sinequan) 50 mg PO HS [facility] Last Admin: 03/17/18 22:04 Dose: 50 mg Epoetin Antonio (Procrit) 7,500 units SC Q7D@1000 [facility] Famotidine (Pepcid) 20 mg PO DAILY [facility] Last Admin: 03/18/18 07:49 Dose: 20 mg Heparin Sodium (Porcine) (Heparin) 5,000 units SC BID [facility] Last Admin: 03/18/18 07:53 Dose: 5,000 units Mometasone Furoate/Formoterol Fumar (Dulera 200 Mcg/5 Mcg Inhaler) 2 puff INH BIDPRN [facility] Polysaccharide Iron Complex (Niferex) 150 mg PO QAM[facility] Last Admin: 03/18/18 07:47 Dose: 150 mg Senna/Docusate Sodium (Senokot S) 2 tab PO BIDPRN PRN PRN Reason: Constipation Vitamin B Complex/Vit C/Folic Acid (Nephro-Rolando Tablet) 1 tab PO DAILY [facility] Last Admin: 03/18/18 07:50 Dose: 1 tab
[2018-03-18] MEDS: Epoetin (ESRD) 20,000 UNITS/ML SC SCH (13:09)
--- NOTE | 2018-03-18 14:39 | PRG ---
DATE OF SERVICE: 03/18/2018 SUBJECTIVE: She is being dialyzed this morning. She is doing better. OBJECTIVE: VITALS: Sats are 98% on room air, respiration rate 18, temperature 98, blood pressure 130/65. CHEST: No wheezing, no crackles. CARDIAC: Normal S1-S2. No gallops. ABDOMEN: Soft, no masses. IMPRESSION: 1. Respiratory failure. 2. Renal failure. 3. Pleural effusion. 4. Severe deconditioning. PLAN: Continue dialysis, supportive care, neb treatment.
[2018-03-18] MEDS: Doxepin HCl 25 MG CAP PO SCH (20:22)
[2018-03-18] MEDS: Atorvastatin Calcium 20 MG TAB PO SCH (20:22)
[2018-03-18] MEDS: Donepezil HCl 10 MG TAB PO SCH (20:22)
--- NOTE | 2018-03-19 09:18 | PRG ---
DATE OF SERVICE: 03/19/2018 SUBJECTIVE: Ms. Ley is a 77-year-old white female with known history of ESRD. She has now been converted from peritoneal dialysis to hemodialysis. I am at the bedside supervising her dialysis. M y plan is to do a 3.5 hour hemodialysis. Fluid removal as tolerated. No new complaints. No chest p ain or shortness of breath. OBJECTIVE: VITAL SIGNS: Blood pressure 145/76, heart rate 114, temperature 98.4, respiratory rate 16, pulse ox 92%. GENERAL: Noted to be awake, alert, comfortable, not in distress. SKIN: Adequate turgor. HEENT: She has slightly pale conjunctivae, anicteric sclerae. NECK: No neck mass, no carotid bruits, no JVD. CHEST: No deformities. LUNGS: Decreased breath sounds. Occasional wheezing. HEART: Tachycardic. ABDOMEN: Globular, soft, nontender. No masses. EXTREMITIES: Positive for edema. MEDICATIONS: 03/19/2018 - Reviewed. LABORATORY: 03/17/2018 - White count 8.6, hemoglobin 9.6. Sodium 137, potassium 4.3, chloride 102, carbon dioxide 26, BUN 43, creatinine 5.12, magnesium 1.4. ASSESSMENT AND PLAN: 1. End-stage renal disease, continuing hemodialysis regimen. After today's dialysis we will do 3 ti mes a week hemodialysis. From a renal point of view, she can be discharged anytime to her home dialy sis unit in [place]. 2. Anemia, on weekly Epogen. 3. Shortness of breath, resolved.
--- NOTE | 2018-03-19 09:28 | PRG ---
DATE OF SERVICE: 03/19/2018 SUBJECTIVE: I saw her in the dialysis unit today. She appears to be doing reasonably well. OBJECTIVE: VITAL SIGNS: Temperature is 98.4, pulse 114, respiration 16, O2 sat 92% on 2-1/2 liters, blood press ure 145/76. HEENT: Unremarkable. NECK: No JVD. CHEST: Clear anteriorly. CARDIOVASCULAR: S1 and S2 regular. ABDOMEN: Soft. EXTREMITIES: No edema. LABORATORY DATA: No labs were done today. ASSESSMENT: 1. Chronic renal failure. 2. Severe chronic obstructive pulmonary disease. 3. Status post acute respiratory failure. PLAN: 1. Continue dialysis. 2. Continue nebulization treatments as needed.
[2018-03-19] MEDS: Iron Polysaccharides Complex 150 MG CAP PO SCH (12:15)
[2018-03-19] MEDS: Folic Acid/Vit B Comp W-C PO SCH (12:15)
[2018-03-19] MEDS: Heparin 5,000 UNITS/ML VIAL SC SCH ×2 (12:15→21:17)
[2018-03-19] MEDS: Cinacalcet HCl 30 MG TAB PO SCH (12:15)
[2018-03-19] MEDS: Famotidine 20 MG TAB PO SCH (12:15)
[2018-03-19] MEDS: Calcitriol 0.25 MCG CAP PO SCH (12:17)
--- NOTE | 2018-03-19 16:41 | PDOC.PN ---
- Subjective Encounter Start Date: 03/19/18 Encounter Start Time: 16:40 Pt seen for followup re: acute on chronic hypoxic resp failure. Feels better. No nausea or vomiting. - Objective Resuscitation Status: Resuscitation Status FULL:Full Resuscitation MAR Reviewed: Yes Vital Signs & Weight: Vital Signs (12 hours) Temp Pulse Resp BP Pulse Ox 03/19/18 15:58 97.7 F 100 16 113/62 100 03/19/18 13:00 99 18 98 03/19/18 12:13 96 18 124/63 94 L 03/19/18 07:36 98.4 F 114 H 16 145/76 H 92 L 03/19/18 06:42 106 H 18 96 Weight Weight 120 lb Most Recent Monitor Data Heart Rate from ECG 120 NIBP 137/59 NIBP BP-Mean 78 Respiration from ECG 18 SpO2 96 I&O: 03/18/18 03/19/18 03/20/18 06:59 06:59 06:59 Intake Total 300 1590 Output Total 0 0 Balance 300 1590 Result Diagrams: 03/17/18 04:00 03/17/18 04:00 EKG Reviewed by me: Yes (Tele: sinus tachycardia) Phys Exam - Physical Examination Constitutional: NAD HEENT: moist MMs Neck: supple Respiratory: clear to auscultation bilateral Cardiovascular: no rub S1, S2, tachy Gastrointestinal: soft Neurological: moves all 4 limbs Psychiatric: normal affect Dx/Plan (1) Acute on chronic respiratory failure with hypoxia Code(s): J96.21 - ACUTE AND CHRONIC RESPIRATORY FAILURE WITH HYPOXIA Status: Acute Comment: Improving (2) Volume overload Code(s): E87.70 - FLUID OVERLOAD, UNSPECIFIED Status: Acute Comment: Improving with dialysis (3) ESRD on peritoneal dialysis Code(s): N18.6 - END STAGE RENAL DISEASE; Z99.2 - DEPENDENCE ON RENAL DIALYSIS Status: Chronic Comment: transitioning to HD from PD - Plan * . Review of Systems - Review of Systems Respiratory: negative: Cough, Dry, Shortness of Breath, Hemoptysis, SOB with Excertion, Pleuritic Pain, Sputum, Wheezing Cardiovascular: negative: chest pain, palpitations, orthopnea, paroxysmal nocturnal dyspnea, edema, light headedness - Medications/Allergies Allergies/Adverse Reactions: Allergies Allergy/AdvReac Type Severity Reaction Status Date / Time codeine Allergy Verified 04/27/16 21:10 erythromycin base Allergy Verified 04/27/16 21:10 Medications: Current Medications Acetaminophen (Tylenol) 1,000 mg PO Q6H PRN PRN Reason: Mild Pain (1-3) 1ST LINE Albuterol/Ipratropium (Duoneb) 3 ml NEB [id number] [facility] Last Admin: 03/19/18 13:00 Dose: 3 ml Atorvastatin Calcium (Lipitor) 20 mg PO HS [facility] Last Admin: 03/18/18 20:22 Dose: 20 mg Calcitriol (Rocaltrol) 0.5 mcg PO DAILY [facility] Last Admin: 03/19/18 12:17 Dose: 0.5 mcg Cefazolin Sodium (Ancef) 2 gm SLOW IVP ONCALL-OR [facility] Cholecalciferol (Vitamin D3) 2,000 units PO DAILY [facility] Last Admin: 03/19/18 12:14 Dose: 2,000 units Cinacalcet (Sensipar) 30 mg PO QA[facility] Last Admin: 03/19/18 12:15 Dose: 30 mg Donepezil HCl (Aricept) 10 mg PO HS [facility] Last Admin: 03/18/18 20:22 Dose: 10 mg Doxepin HCl (Sinequan) 50 mg PO [facility] Last Admin: 03/18/18 20:22 Dose: 50 mg Epoetin Antonio (Procrit) 7,500 units SC Q7D@1000 [facility] Last Admin: 03/18/18 13:09 Dose: 7,500 units Famotidine (Pepcid) 20 mg PO DAILY [facility] Last Admin: 03/19/18 12:15 Dose: 20 mg Heparin Sodium (Porcine) (Heparin) 5,000 units SC BID [facility] Last Admin: 03/19/18 12:15 Dose: 5,000 units Mometasone Furoate/Formoterol Fumar (Dulera 200 Mcg/5 Mcg Inhaler) 2 puff INH BIDPRN [facility] Polysaccharide Iron Complex (Niferex) 150 mg PO QA[facility] Last Admin: 03/19/18 12:15 Dose: 150 mg Senna/Docusate Sodium (Senokot S) 2 tab PO BIDPRN PRN PRN Reason: Constipation Vitamin B Complex/Vit C/Folic Acid (Nephro-Rolando Tablet) 1 tab PO DAILY [facility] Last Admin: 03/19/18 12:15 Dose: 1 tab
[2018-03-19] MEDS: Doxepin HCl 25 MG CAP PO SCH (21:17)
[2018-03-19] MEDS: Donepezil HCl 10 MG TAB PO SCH (21:18)
[2018-03-19] MEDS: Atorvastatin Calcium 20 MG TAB PO SCH (21:18)
--- NOTE | 2018-03-20 08:29 | PRG ---
DATE OF SERVICE: 03/20/2018 SUBJECTIVE: Ms. Ley is a 77-year-old white female with ESRD. She has been converted from perito lisandra dialysis to hemodialysis per her request. She is unable to do her peritoneal dialysis at home - due to problems with dementia. No other complaints today. She underwent hemodialysis yesterday wit hout any difficulty. PHYSICAL EXAMINATION: VITAL SIGNS: Blood pressure is 137/77, heart rate 112, respiratory rate 20, temperature 98.3, pulse ox 97%. GENERAL: Awake, alert, comfortable, not in distress. SKIN: Adequate turgor. HEENT: She has pinkish conjunctivae, anicteric sclerae. NECK: No neck mass, no carotid bruits, no JVD. CHEST: No deformities. LUNGS: Clear breath sounds. HEART: Normal sinus rhythm. No murmur, no gallops, no rubs. ABDOMEN: Globular, soft, nontender, no masses. EXTREMITIES: No edema, no deformities. Positive for right AV fistula bruit. LABORATORY: 03/17/2018 - Hemoglobin 9.6, potassium 4.3, creatinine 5.12. ASSESSMENT AND PLAN: 1. End-stage renal disease, stable. Tolerating current hemodialysis regimen. The patient is okay f or discharge. She has an outpatient placement with [facility]. She is to report at 12:20 p.m. tomorrow. 2. Anemia, on weekly Epogen. 3. Dementia, supportive care.
[2018-03-20] MEDS: Cinacalcet HCl 30 MG TAB PO SCH (09:17)
[2018-03-20] MEDS: Folic Acid/Vit B Comp W-C PO SCH (09:17)
[2018-03-20] MEDS: Famotidine 20 MG TAB PO SCH (09:18)
[2018-03-20] MEDS: Calcitriol 0.25 MCG CAP PO SCH (09:18)
[2018-03-20] MEDS: Heparin 5,000 UNITS/ML VIAL SC SCH ×2 (09:19→22:24)
[2018-03-20] MEDS: Iron Polysaccharides Complex 150 MG CAP PO SCH (09:19)
--- NOTE | 2018-03-20 11:50 | PRG ---
DATE OF SERVICE: 03/20/2018. SUBJECTIVE: She is up in a chair, working on her computer. She looks very good. OBJECTIVE: VITAL SIGNS: Temperature is 98.3, pulse 112, respiration 20, O2 saturation 97%, blood pressure 137/7 7. HEENT: Unremarkable. NECK: No JVD. CHEST: Clear without wheezing. CARDIAC: S1 and S2 regular. ABDOMEN: Soft. EXTREMITIES: No edema. ASSESSMENT: 1. End-stage renal disease, now converted to hemodialysis from peritoneal dialysis with a resulting decrease in pulmonary edema and extravascular fluid. 2. Severe chronic obstructive pulmonary disease. PLAN: She looks okay for discharge. No further pulmonary recommendations. Please recall if further assistance needed.
[2018-03-20] MEDS ORDERED: Lidocaine 1% (PF) 30 ML VIAL ONE (18:56)
[2018-03-20] MEDS: Acetaminophen 500 MG TAB PO PRN (20:01)
--- NOTE | 2018-03-20 20:25 | DIS ---
DATE OF ADMISSION: 03/13/2018 DATE OF DISCHARGE: 03/20/2018 PRIMARY CARE PROVIDER: Lc Heath M.D. DISCHARGE DIAGNOSES: 1. Volume overload. 2. End-stage renal disease, on dialysis, converted from peritoneal dialysis to hemodialysis during t his hospitalization. 3. Acute on chronic hypoxic respiratory failure. CONSULTATIONS DURING THIS HOSPITALIZATION: Nephrology, Dr. Grimes; General Surgery, Dr. Le and [facility], Dr. Brown. CONDITION OF PATIENT ON THE DAY OF DISCHARGE: Stable. I assessed Ms. Ley on the day of discharg e. She denies any chest pain or shortness of breath. Vital signs are stable. S1 and S2 are heard, regular. Lungs are clear to auscultation bilaterally. HOSPITAL COURSE: Ms. Ley is a pleasant 77-year-old lady who was admitted to [facility] on 03/13/2018 for shortness of breath secondary to volume overload. Please refer to Dr Lion Pate's history and physical note dated 03/14/2018 for further details. She was seen by Nephrolog y service. She was on peritoneal dialysis prior to this hospitalization, but the peritoneal dialysis was inadequate. She was seen by General Surgery Service. On 03/16/2018, she had right arm primary fistula and removal of peritoneal dialysis catheter. She was transitioned to hemodialysis during thi s hospitalization. Following the procedure, she was admitted to the Critical Care Unit for further m anagement in an intubated state. She was extubated subsequently and transferred to a monitored bed. She continued to have dialysis and continued to gradually improve. She has been cleared for dischar ge by Nephrology service on 03/20/2018. She will receive hemodialysis as an outpatient. DISCHARGE MEDICATIONS: No change was made to her preadmission home medications as dictated in Dr. Loreto pulido's history and physical note dated 03/14/2018. Many thanks for allowing me to participate in your patient's care. Please feel free to contact me wi th any questions or concerns. DISCHARGE DESTINATION: Home. TOTAL AMOUNT OF TIME SPENT COORDINATING THIS DISCHARGE: 31 minutes.
[2018-03-20] MEDS: Donepezil HCl 10 MG TAB PO SCH (22:17)
[2018-03-20] MEDS: oxyCODONE 5 MG TAB PO PRN (22:18)
[2018-03-20] MEDS: Atorvastatin Calcium 20 MG TAB PO SCH (22:18)
[2018-03-20] MEDS: Doxepin HCl 25 MG CAP PO SCH (22:18)
--- NOTE | 2018-03-21 09:29 | PRG ---
DATE OF SERVICE: 03/21/2018 SUBJECTIVE: Ms. Ley is a 77-year-old white female with ESRD and currently undergoing dialysis. I am at the bedside supervising her dialysis. Last night we removed a left femoral central line, but she had bleeding with this and pressure was applied. There is no improvement with the bleeding. Ho wever, she had a nonsustained V-tach. For that reason, we discussed the case with the Hospitalist. We decided to proceed with a Cardiology consult. Otherwise, no other complaints. PHYSICAL EXAMINATION: VITAL SIGNS: Blood pressure is 103/56, heart rate 119, respiratory rate 26, temperature 97.8, pulse ox 100%. GENERAL: Noted to be awake, alert, comfortable, not in overt distress. SKIN: Adequate turgor. HEENT: Pinkish conjunctivae, anicteric sclerae. NECK: No neck mass, no carotid bruits, no JVD. CHEST: No deformities. LUNGS: Clear breath sounds, no wheezing, no crackles. HEART: Normal sinus rhythm. No murmur, no gallops or rubs. ABDOMEN: Globular, soft, nontender. No masses. EXTREMITIES: No edema, no deformities. MEDICATIONS: 03/21/2018 - Reviewed. LABORATORY: 03/17/2018 - BUN 43, creatinine 5.12, potassium 4.3. White count 8.6, hemoglobin 9.6. ASSESSMENT AND PLAN: 1. Nonsustained ventricular tachycardia. Cardiology consult. Clinically, asymptomatic. 2. End-stage renal disease, stable. Tolerating current hemodialysis regimen. Tolerating fluid dwayne leah. Continue 3 times a week hemodialysis. 3. Anemia. The patient is currently on weekly Epogen. Continue current management. Overall, prognosis remains guarded.
[2018-03-21] MEDS: Cinacalcet HCl 30 MG TAB PO SCH (09:55)
[2018-03-21] MEDS: Calcitriol 0.25 MCG CAP PO SCH (09:55)
[2018-03-21] MEDS: Folic Acid/Vit B Comp W-C PO SCH (09:55)
[2018-03-21] MEDS: Iron Polysaccharides Complex 150 MG CAP PO SCH (09:56)
[2018-03-21] MEDS: Acetaminophen 500 MG TAB PO PRN ×2 (09:56→20:13)
[2018-03-21] MEDS: Famotidine 20 MG TAB PO SCH (09:56)
[2018-03-21] MEDS: Heparin 5,000 UNITS/ML VIAL SC SCH ×2 (12:01→20:13)
[2018-03-21 12:18] LABS: Hemoglobin 6.5 g/dL (12.0-16.0); Platelet Count 343 thou/uL (130-400)
[2018-03-21] MEDS: oxyCODONE 5 MG TAB PO PRN ×2 (13:15→20:16)
--- NOTE | 2018-03-21 16:25 | CON ---
DATE OF CONSULTATION: 03/21/2018 REASON FOR CONSULTATION: Nonsustained supraventricular tachycardia. PRIMARY SPORTS MEDICINE COORDINATOR: Ovidio Bae M.D. HISTORY OF PRESENT ILLNESS: Ms. Ley is a very pleasant 77-year-old white female who comes to the hospital for shortness of breath. She has end-stage renal disease and has been on peritoneal dialys is, which apparently she has failed and now has been transitioned into hemodialysis. She has been in the hospital for this. She was admitted, access was done and she has been tolerating hemodialysis w ell, getting her fluid level better, which is probably the main reason why she was short of breath. She also has a history of COPD and may have had an exacerbation about 2 or 3 weeks ago. She was doin g well and she was actually ready for discharge and she had 2 runs of nonsustained supraventricular t achycardia, heart rate in the 150s to 180s, this was completely asymptomatic. Cardiology is being co nsulted for this. PAST MEDICAL HISTORY: 1. End-stage renal disease on peritoneal dialysis, now on hemodialysis. 2. Chronic obstructive pulmonary disease, on chronic home oxygen. 3. Hypertension. 4. Gastric ulcers in the past. PAST SURGICAL HISTORY: 1. Cholecystectomy. 2. Peritoneal shunt placed. 3. Hemodialysis fistula placed. SOCIAL HISTORY: Former smoker, social alcohol use, no drug use. OUTPATIENT MEDICATIONS: Include, 1. Calcitriol. 2. Vitamin D3. 3. Sensipar. 4. Aricept. 5. Doxepin. 6. Folic acid. 7. Albuterol. 8. Iron. 9. Dulera. 10. Simvastatin. 11. Tiotropium. ALLERGIES: CODEINE and ERYTHROMYCIN. FAMILY HISTORY: Noncontributory. REVIEW OF SYSTEMS: A 12-point review of systems was done and is negative unless stated in the histor y of present illness. PHYSICAL EXAMINATION: VITAL SIGNS: Temperature 97.8, pulse 110, respiratory rate 26, satting 100% on 2 liters nasal cannul a, blood pressure 103/56. GENERAL: Awake, alert, oriented x3, in no distress. HEENT: Normocephalic, atraumatic. NECK: Supple. LUNGS: Have reduced breath sounds bilateral. CARDIOVASCULAR: S1, S2, no S3, S4, distant heart sounds, slightly tachycardic. She is receiving a n ebulization at the time of my evaluation. ABDOMEN: Soft, positive bowel sounds. EXTREMITIES: No edema. SKIN: Warm and dry. LABORATORY WORK: Reviewed. She has a white count of 8.6, hemoglobin 9.6, hematocrit of 30.6, platel et count of 308. Her hemoglobin dropped from 9.6 to 6.5. Chemistries were reviewed. Troponin has b een in determine range of 0.05, 0.05 and BNP was 1333 on admission, has not been rechecked since. Telemetry was reviewed. Two small runs of nonsustained supraventricular tachycardia, heart rate in t he 150s on one time and 180s on the other one. ASSESSMENT AND PLAN: 1. Nonsustained supraventricular tachycardia: This is asymptomatic. In this setting, I would only do an echocardiogram to make sure that her EF is preserved and has no major valvular abnormalities. Other than that on discharge if stable, we will plan on adding a very low dose beta susana given her blood pressure is low and her COPD status, this may be a challenge on top of her hemoglobin dropping significantly since it the last time it was checked. I will hold off on the beta susana or any ebony cium channel blockers at this time. 2. More than likely, her anemia is the cause of her sinus tachycardia. She apparently had a femoral line pulled yesterday and may have some bleeding there, may need a CT abdomen and pelvis to make gumaro e that she is not having any significant bleeding there. 3. Otherwise, from the cardiac standpoint if the echocardiogram is fairly unremarkable, she should b e able to be discharged home. Obviously, she needs to have her hemoglobin addressed first and make s ure this is no longer an issue. May need blood transfusion. Thank you for letting us participate in the care of your patient. We will follow.
--- NOTE | 2018-03-21 16:33 | CT ---
CT ABDOMEN AND PELVIS NONCONTRAST: 03/21/18 HISTORY: Left groin pain. FINDINGS: Each renal collecting system, ureter, and the urinary bladder are incompletely distended. Lobular ebony cification at the left renal pelvis measures up to 0.5 cm. Within nondilated calyces of the right mehul krishna, multiple calcifications are present, measuring up to 0.4 cm diameter. There is marked thinning o f the cortex of each kidney. Lack of contrast limits evaluation for further abnormalities. Cysts arise from the cortex of each mehul krishna. Bilateral pleural fluid with compressive atelectasis at the lung bases. Densely calcified breast implants. Prominent calcification throughout the arterial structures. Large caliber right femoral ve nous catheter extends into the inferior vena cava to the level of the junction of the IVC and right a trium. Small amount of free fluid within the dependent portion of the pelvis. Diverticula arise from the colon. Degenerative changes lumbar spine. Centered at the left groin, medial to the left common f emoral vessels, a very large lobulated heterogeneous density mass with low density center measures up to 11.6 cm length x 12.6 cm width x 7.3 cm depth. It displaces the midline structures rightward. Pro minent stranding within the adjacent fat about the left hip and gluteus. Internal fixation left hip i s apparent. Calcification within the uterus. IMPRESSION: Large presumed hematoma at the left groin given the history of recent central vascular catheter remov al and enlarging mass. Bilateral renal calculi without significant obstruction. Significant bilateral renal atrophy. Free fluid within each pleural space and the abdomen. Atherosclerosis. POS: UZIEL
--- NOTE | 2018-03-21 17:31 | PDOC.PN ---
- Subjective Encounter Start Date: 03/21/18 Encounter Start Time: 17:32 Chart reviewed and overnight events noted. Pt seen for anemia of acute blood loss. c/o left groin pain. Denies chest pain or shortness of breath. - Objective Resuscitation Status: Resuscitation Status FULL:Full Resuscitation MAR Reviewed: Yes Vital Signs & Weight: Vital Signs (12 hours) Temp Pulse Resp BP Pulse Ox 03/21/18 13:40 110 H 16 94 L 03/21/18 11:37 100 03/21/18 08:00 97.8 F 119 H 26 H 103/56 L 100 03/21/18 06:55 122 H 20 96 Weight Weight 121 lb Most Recent Monitor Data Heart Rate from ECG 120 NIBP 137/59 NIBP BP-Mean 78 Respiration from ECG 18 SpO2 96 I&O: 03/20/18 03/21/18 03/22/18 06:59 06:59 06:59 Intake Total 480 Output Total 0 Balance 480 Result Diagrams: 03/21/18 12:08 03/17/18 04:00 EKG Reviewed by me: Yes (Tele: NSR) Phys Exam - Physical Examination Constitutional: NAD HEENT: moist MMs Neck: supple Respiratory: clear to auscultation bilateral Cardiovascular: RRR Gastrointestinal: soft Neurological: moves all 4 limbs Psychiatric: normal affect Deviation from normal: left groin hematoma Dx/Plan (1) Anemia associated with acute blood loss Code(s): D62 - ACUTE POSTHEMORRHAGIC ANEMIA Status: Acute Comment: transfuse 1 unit pRBC, recheck hemoglobin (2) SVT (supraventricular tachycardia) Code(s): I47.1 - SUPRAVENTRICULAR TACHYCARDIA Status: Acute Comment: cardiology service consulted (3) Groin hematoma Code(s): S30.1XXA - CONTUSION OF ABDOMINAL WALL, INITIAL ENCOUNTER Status: Acute Comment: follow hemoglobin (4) Volume overload Code(s): E87.70 - FLUID OVERLOAD, UNSPECIFIED Status: Acute Comment: Improving with dialysis (5) ESRD on peritoneal dialysis Code(s): N18.6 - END STAGE RENAL DISEASE; Z99.2 - DEPENDENCE ON RENAL DIALYSIS Status: Chronic Comment: transitioned to HD from PD (6) Acute on chronic respiratory failure with hypoxia Code(s): J96.21 - ACUTE AND CHRONIC RESPIRATORY FAILURE WITH HYPOXIA Status: Resolved - Plan * . Review of Systems - Review of Systems Cardiovascular: negative: chest pain, palpitations, orthopnea, paroxysmal nocturnal dyspnea, edema, light headedness Gastrointestinal: negative: Nausea, Vomiting, Abdominal Pain, Diarrhea, Constipation, Melena, Hematochezia Musculoskeletal: Other (left groin pain) - Medications/Allergies Allergies/Adverse Reactions: Allergies Allergy/AdvReac Type Severity Reaction Status Date / Time codeine Allergy Verified 04/27/16 21:10 erythromycin base Allergy Verified 04/27/16 21:10 Medications: Current Medications Acetaminophen (Tylenol) 1,000 mg PO Q6H PRN PRN Reason: Mild Pain (1-3) 1ST LINE Last Admin: 03/21/18 09:56 Dose: 1,000 mg Albuterol/Ipratropium (Duoneb) 3 ml NEB [id number] [facility] Last Admin: 03/21/18 13:40 Dose: 3 ml Atorvastatin Calcium (Lipitor) 20 mg PO HS [facility] Last Admin: 03/20/18 22:18 Dose: 20 mg Calcitriol (Rocaltrol) 0.5 mcg PO DAILY [facility] Last Admin: 03/21/18 09:55 Dose: 0.5 mcg Cefazolin Sodium (Ancef) 2 gm SLOW IVP ONCALL-OR [facility] Cholecalciferol (Vitamin D3) 2,000 units PO DAILY [facility] Last Admin: 03/21/18 09:55 Dose: 2,000 units Cinacalcet (Sensipar) 30 mg PO QAM-WM [facility] Last Admin: 03/21/18 09:55 Dose: 30 mg Donepezil HCl (Aricept) 10 mg PO HS [facility] Last Admin: 03/20/18 22:17 Dose: 10 mg Doxepin HCl (Sinequan) 50 mg PO HS [facility] Last Admin: 03/20/18 22:18 Dose: 50 mg Epoetin Antonio (Procrit) 7,500 units SC Q7D@1000 [facility] Last Admin: 03/18/18 13:09 Dose: 7,500 units Famotidine (Pepcid) 20 mg PO DAILY [facility] Last Admin: 03/21/18 09:56 Dose: 20 mg Heparin Sodium (Porcine) (Heparin) 5,000 units SC BID [facility] Last Admin: 03/21/18 12:01 Dose: Not Given Mometasone Furoate/Formoterol Fumar (Dulera 200 Mcg/5 Mcg Inhaler) 2 puff INH BIDPRN [facility] Oxycodone HCl (Oxycodone Ir) 5 mg PO Q4H PRN PRN Reason: Moderate to Severe Pain (6-10) Last Admin: 03/21/18 13:15 Dose: 5 mg Polysaccharide Iron Complex (Niferex) 150 mg PO QA-[facility] Last Admin: 03/21/18 09:56 Dose: 150 mg Senna/Docusate Sodium (Senokot S) 2 tab PO BIDPRN PRN PRN Reason: Constipation Vitamin B Complex/Vit C/Folic Acid (Nephro-Rolando Tablet) 1 tab PO DAILY [facility] Last Admin: 03/21/18 09:55 Dose: 1 tab
[2018-03-21] MEDS: Atorvastatin Calcium 20 MG TAB PO SCH (20:13)
[2018-03-21] MEDS: Doxepin HCl 25 MG CAP PO SCH (20:15)
[2018-03-21] MEDS: Donepezil HCl 10 MG TAB PO SCH (20:17)
[2018-03-22 05:08] LABS: #Basophils 0.1 thou/uL (0.0-0.2); #Eosinphils 0.3 thou/uL (0.0-0.7); #Lymphocytes 1.5 thou/uL (1.20-3.40); #Monocytes 1.8 thou/uL (0.11-0.59); #Neutrophils 10.7 thou/uL (1.40-6.50); %Basophils 0.7 % (0.0-1.0); %Eosinophils 2.4 % (0.0-10.0); %Lymphocytes 10.3 % (21.0-51.0); %Monocytes 12.6 % (0.0-10.0); Hemoglobin 6.9 g/dL (12.0-16.0); Mean Corpuscular HGB CONC 31.2 g/dL (32.0-36.0); Mean Corpuscular Hemoglobin 28.7 pg (27.0-31.0); Mean Platelet Volume 8.4 fL (7.4-10.4); Platelet Count 373 thou/uL (130-400); RBC Distribution Width 13.9 % (11.5-14.5); Red Blood Cell (RBC) Count 2.42 mill/uL (4.20-5.40); White Blood Cell (WBC) Count 14.4 thou/uL (4.8-10.8)
[2018-03-22 05:19] LABS: Anion Gap 13 mmol/L (10-20); BUN (Urea Nitrogen) 17 mg/dL (9.8-20.1); Calc. Creatinine Clearance 16 mL/min (70-130); Calcium 8.3 mg/dL (7.8-10.44); Carbon Dioxide 27 mmol/L (23-31); Chloride 99 mmol/L (98-107); Estimated GFR-MDRD 18; Glucose 103 mg/dL (83-110); Potassium 3.9 mmol/L (3.5-5.1); Sodium 135 mmol/L (136-145)
[2018-03-22] MEDS: Famotidine 20 MG TAB PO SCH (08:19)
[2018-03-22] MEDS: Iron Polysaccharides Complex 150 MG CAP PO SCH (08:19)
[2018-03-22] MEDS: Folic Acid/Vit B Comp W-C PO SCH (08:19)
[2018-03-22] MEDS: Calcitriol 0.25 MCG CAP PO SCH (08:19)
[2018-03-22] MEDS: Cinacalcet HCl 30 MG TAB PO SCH (08:19)
[2018-03-22] MEDS: Heparin 5,000 UNITS/ML VIAL SC SCH ×2 (08:19→20:31)
--- NOTE | 2018-03-22 10:10 | PRG ---
DATE OF SERVICE: 03/22/2018 SUBJECTIVE: Ms. Ley is a 77-year-old white female, who was initially admitted for shortness of b reath. She also was converted from peritoneal dialysis to hemodialysis per her request. She is unde rgoing hemodialysis. Please note she developed a left groin hematoma. Hemoglobin has dropped down t o less than 7. We will be planning 1 unit of packed red blood cells today with this patient. No oth er complaints. She also developed nonsustained V-tach. The recommendation is simple observation wit h this patient and to repeat a cardiac echo. No complaints of chest pain, shortness of breath. OBJECTIVE: VITAL SIGNS: Blood pressure is 121/56, heart rate 102, respiratory rate 16, temperature 99.3, and pu lse ox 94%. GENERAL: Awake, alert, comfortable, not in distress. SKIN: Adequate turgor. HEENT: Pale conjunctivae, anicteric sclerae. NECK: No neck mass, no carotid bruits, no JVD. CHEST: No deformities. LUNGS: Decreased breath sounds. HEART: Normal sinus rhythm. No murmur, no gallops, no rubs. ABDOMEN: Globular, soft, nontender, no masses. GROIN: Left hematoma noted. EXTREMITIES: No edema, no deformities. MEDICATIONS: 03/22/2018 was reviewed. LABORATORY DATA: Laboratories of 03/22/2018, white count 14.4, hemoglobin 6.9, and hematocrit 22.2. Sodium 135, potassium 2.9, chloride 99, carbon dioxide 27, BUN 17, creatinine 2.55, glucose 103, ebony cium 8.3. ASSESSMENT AND PLAN: 1. End-stage renal disease, stable. Continuing 3 times a week hemodialysis. Fluid removal only as tolerated, no heparin use due to recent hematoma. 2. Nonsustained ventricular tachycardia, stable. Cardiology is following. 3. Anemia. Continue weekly Epogen. We will transfuse 1 unit of packed RBC. 4. Recheck base met and CBC in a.m.
--- NOTE | 2018-03-22 14:08 | EKG ---
Test Reason : Blood Pressure : / mmHG Vent. Rate : 099 BPM Atrial Rate : 099 BPM P-R Int : 156 ms QRS Dur : 070 ms QT Int : 368 ms P-R-T Axes : 071 023 104 degrees QTc Int : 472 ms Normal sinus rhythm Possible Left atrial enlargement Low voltage QRS Nonspecific T wave abnormality Abnormal ECG Confirmed by MERCEDES GARCIA DO ([id number]), editor producer SINDI FERGUSON ([id number]) on 03/22/2018 2:07:39 PM Referred By: Confirmed By:MERCEDES GARCIA DO
--- NOTE | 2018-03-22 14:23 | PDOC.CTH ---
Cardiology Progress Note - Subjective No new issues. - Objective Vital Signs Temp Pulse Pulse Resp BP BP BP 03/22/18 13:57 102 H 16 03/22/18 11:10 97.8 F 99 19 103/55 L 03/22/18 10:48 98.9 F 97 18 111/54 L 03/22/18 07:25 99.3 F 102 H 16 03/22/18 07:23 113 H 16 03/22/18 04:00 97.9 F 108 H 20 119/53 L BP Pulse Ox 03/22/18 13:57 92 L 03/22/18 11:10 100 03/22/18 10:48 03/22/18 07:25 121/56 L 94 L 03/22/18 07:23 92 L 03/22/18 04:00 98 Weight 121 lb 0.54 oz 03/21/18 03/22/18 03/23/18 06:59 06:59 06:59 Intake Total 480 1050 0 Output Total 0 Balance 480 1050 0 - Physical Examination General/Neuro: alert & oriented x3, NAD Neck: no JVD present Lungs: CTA, unlabored respirations Heart: RRR Abdomen: NT/ND Extremities: other: (n oedema. Large hemtoma on left side unchanged.) - Telemetry Telemetry Rhythm: STach - Labs Result Diagrams: 03/22/18 04:30 03/22/18 04:30 Troponin/CKMB CK-MB (CK-2) 5.9 ng/mL (0-6.6) 03/13/18 16:52 Troponin I 0.056 ng/mL (< 0.028) H 03/13/18 22:39 - Assessment/Plan 1. Non sustained SVT 2. Sinus tachycardia likely needed to compensate for anemia. 3. Large left groin hematoma. 4. Anemia, acute blood loss. 5. ESRD. PLAN: - Blood transfusion with HD. - No BB for now as she needs her S tach for now. - Would start once anemia improved and before discharge. - Watch for left leg circulation, distal pulses.
--- NOTE | 2018-03-22 14:33 | PDOC.PN ---
- Subjective Encounter Start Date: 03/22/18 Encounter Start Time: 08:20 Pt seen for followup re: anemia of acute blood loss. Reports RUE numbness since yesterday. No chest pain, shortness of breath, fevers or chills. - Objective Resuscitation Status: Resuscitation Status FULL:Full Resuscitation Vital Signs & Weight: Vital Signs (12 hours) Temp Pulse Pulse Resp BP BP BP 03/22/18 13:57 102 H 16 03/22/18 11:10 97.8 F 99 19 103/55 L 03/22/18 10:48 98.9 F 97 18 111/54 L 03/22/18 07:25 99.3 F 102 H 16 03/22/18 07:23 113 H 16 03/22/18 04:00 97.9 F 108 H 20 119/53 L BP Pulse Ox 03/22/18 13:57 92 L 03/22/18 11:10 100 03/22/18 10:48 03/22/18 07:25 121/56 L 94 L 03/22/18 07:23 92 L 03/22/18 04:00 98 Weight Weight 121 lb 0.54 oz Most Recent Monitor Data Heart Rate from ECG 97 NIBP 137/59 NIBP BP-Mean 78 Respiration from ECG 18 SpO2 96 I&O: 03/21/18 03/22/18 03/23/18 06:59 06:59 06:59 Intake Total 480 1050 0 Output Total 0 Balance 480 1050 0 Result Diagrams: 03/22/18 04:30 03/22/18 04:30 Phys Exam - Physical Examination Constitutional: NAD HEENT: moist MMs Neck: supple Respiratory: clear to auscultation bilateral Cardiovascular: RRR peripheral pulses palpable Gastrointestinal: soft Neurological: moves all 4 limbs Psychiatric: normal affect Deviation from normal: L groin hematoma Dx/Plan (1) Anemia associated with acute blood loss Code(s): D62 - ACUTE POSTHEMORRHAGIC ANEMIA Status: Acute Comment: hemoglobin improved to 6.9, will transfuse again and recheck (2) SVT (supraventricular tachycardia) Code(s): I47.1 - SUPRAVENTRICULAR TACHYCARDIA Status: Acute Comment: asymptomatic (3) Groin hematoma Code(s): S30.1XXA - CONTUSION OF ABDOMINAL WALL, INITIAL ENCOUNTER Status: Acute Comment: recheck hemoglobin (4) Volume overload Code(s): E87.70 - FLUID OVERLOAD, UNSPECIFIED Status: Acute Comment: Improved (5) ESRD on peritoneal dialysis Code(s): N18.6 - END STAGE RENAL DISEASE; Z99.2 - DEPENDENCE ON RENAL DIALYSIS Status: Chronic Comment: transitioned to HD from PD (6) Acute on chronic respiratory failure with hypoxia Code(s): J96.21 - ACUTE AND CHRONIC RESPIRATORY FAILURE WITH HYPOXIA Status: Resolved - Plan * . Review of Systems - Review of Systems Respiratory: negative: Cough, Dry, Hemoptysis, Pleuritic Pain, Wheezing Cardiovascular: negative: chest pain, palpitations, orthopnea, paroxysmal nocturnal dyspnea, edema, light headedness Musculoskeletal: Other (RUE numbness). negative: Neck Pain, Shoulder Pain, Arm Pain, Back Pain, Hand Pain, Leg Pain, Foot Pain - Medications/Allergies Allergies/Adverse Reactions: Allergies Allergy/AdvReac Type Severity Reaction Status Date / Time codeine Allergy Verified 04/27/16 21:10 erythromycin base Allergy Verified 04/27/16 21:10 Medications: Current Medications Acetaminophen (Tylenol) 1,000 mg PO Q6H PRN PRN Reason: Mild Pain (1-3) 1ST LINE Last Admin: 03/21/18 20:13 Dose: 1,000 mg Albuterol/Ipratropium (Duoneb) 3 ml NEB [id number] [facility] Last Admin: 03/22/18 13:57 Dose: 3 ml Atorvastatin Calcium (Lipitor) 20 mg PO HS [facility] Last Admin: 03/21/18 20:13 Dose: 20 mg Calcitriol (Rocaltrol) 0.5 mcg PO DAILY [facility] Last Admin: 03/22/18 08:19 Dose: 0.5 mcg Cefazolin Sodium (Ancef) 2 gm SLOW IVP ONCALL-OR [facility] Cholecalciferol (Vitamin D3) 2,000 units PO DAILY [facility] Last Admin: 03/22/18 08:19 Dose: 2,000 units Cinacalcet (Sensipar) 30 mg PO QAM-WM [facility] Last Admin: 03/22/18 08:19 Dose: 30 mg Donepezil HCl (Aricept) 10 mg PO HS [facility] Last Admin: 03/21/18 20:17 Dose: 10 mg Doxepin HCl (Sinequan) 50 mg PO HS [facility] Last Admin: 03/21/18 20:15 Dose: 50 mg Epoetin Antonio (Procrit) 7,500 units SC Q7D@1000 [facility] Last Admin: 03/18/18 13:09 Dose: 7,500 units Famotidine (Pepcid) 20 mg PO DAILY [facility] Last Admin: 03/22/18 08:19 Dose: 20 mg Heparin Sodium (Porcine) (Heparin) 5,000 units SC BID [facility] Last Admin: 03/22/18 08:19 Dose: Not Given Mometasone Furoate/Formoterol Fumar (Dulera 200 Mcg/5 Mcg Inhaler) 2 puff INH BIDPRN [facility] Oxycodone HCl (Oxycodone Ir) 5 mg PO Q4H PRN PRN Reason: Moderate to Severe Pain (6-10) Last Admin: 03/21/18 20:16 Dose: 5 mg Polysaccharide Iron Complex (Niferex) 150 mg PO QAM-WM [facility] Last Admin: 03/22/18 08:19 Dose: 150 mg Senna/Docusate Sodium (Senokot S) 2 tab PO BIDPRN PRN PRN Reason: Constipation Vitamin B Complex/Vit C/Folic Acid (Nephro-Rolando Tablet) 1 tab PO DAILY [facility] Last Admin: 03/22/18 08:19 Dose: 1 tab
--- NOTE | 2018-03-22 15:35 | CT ---
BRAIN CT WITHOUT IV CONTRAST: 03/22/18 HISTORY: 77-year-old female with history of right upper extremity numbness, Bilateral atrophy and chronic whit e matter ischemic change. No focal mass or midline shift. No intra or extra-axial hemorrhage. IMPRESSION: No mass, bleed or other acute process. Bilateral atrophy and chronic white matter ischemic change. POS: ANJALI
[2018-03-22] MEDS: oxyCODONE 5 MG TAB PO PRN (15:55)
[2018-03-22] MEDS: Doxepin HCl 25 MG CAP PO SCH (20:30)
[2018-03-22] MEDS: Atorvastatin Calcium 20 MG TAB PO SCH (20:31)
[2018-03-22] MEDS: Donepezil HCl 10 MG TAB PO SCH (20:31)
[2018-03-23 04:46] LABS: #Basophils 0.1 thou/uL (0.0-0.2); #Eosinphils 0.4 thou/uL (0.0-0.7); #Lymphocytes 2.2 thou/uL (1.20-3.40); #Monocytes 2.1 thou/uL (0.11-0.59); #Neutrophils 10.3 thou/uL (1.40-6.50); %Basophils 0.5 % (0.0-1.0); %Eosinophils 2.5 % (0.0-10.0); %Lymphocytes 14.9 % (21.0-51.0); %Monocytes 13.9 % (0.0-10.0); %Neutrophils 68.3 % (42.0-75.0); Mean Corpuscular HGB CONC 31.8 g/dL (32.0-36.0); Mean Corpuscular Hemoglobin 29.3 pg (27.0-31.0); Mean Corpuscular Volume 92.4 fL (78.0-98.0); Platelet Count 378 thou/uL (130-400); RBC Distribution Width 14.2 % (11.5-14.5); Red Blood Cell (RBC) Count 2.37 mill/uL (4.20-5.40)
[2018-03-23 04:55] LABS: Anion Gap 11 mmol/L (10-20); BUN (Urea Nitrogen) 23 mg/dL (9.8-20.1); Calc. Creatinine Clearance 12 mL/min (70-130); Carbon Dioxide 27 mmol/L (23-31); Chloride 97 mmol/L (98-107); Estimated GFR-MDRD 13; Glucose 103 mg/dL (83-110); Potassium 3.8 mmol/L (3.5-5.1); Sodium 131 mmol/L (136-145)
[2018-03-23] MEDS: Famotidine 20 MG TAB PO SCH (08:28)
[2018-03-23] MEDS: Cinacalcet HCl 30 MG TAB PO SCH (08:28)
[2018-03-23] MEDS: Iron Polysaccharides Complex 150 MG CAP PO SCH (08:28)
[2018-03-23] MEDS: Calcitriol 0.25 MCG CAP PO SCH (08:28)
[2018-03-23] MEDS: Folic Acid/Vit B Comp W-C PO SCH (08:28)
[2018-03-23] MEDS: Heparin 5,000 UNITS/ML VIAL SC SCH (08:29)
--- NOTE | 2018-03-23 10:01 | PRG ---
DATE OF SERVICE: 03/23/2018 CHIEF COMPLAINT: Left groin hematoma. HISTORY OF PRESENT ILLNESS: This is a 77-year-old female admitted with end-stage renal disease. I palma kendrick been consulted for left groin hematoma. The patient notes pain in the left groin, swelling seems to be getting worse. She has a blister forming on the inner aspect of her left groin. She had a ce ntral line placed in this area due to inadequate IV access and attempts to save her upper extremities for AV shunts. Hemoglobin is down to 7 today. PHYSICAL EXAMINATION: VITAL SIGNS: Blood pressure is 109/72, pulse 104, respirations 18. She is afebrile. CHEST: Clear. HEART: Regular rate. ABDOMEN: Soft and nontender. Examination of bilateral groins, there is a tunneled catheter in the right groin, there is a large he matoma in the left groin. There is no active bleeding through the former central lines site. There is a blister on the inner aspect of the left thigh. There is tenderness to palpation. LABORATORY DATA: Hemoglobin is 7, platelet count is 378. ASSESSMENT: Left groin hematoma after central line placement with recent introduction of hemodialysi s, likely will be limiting. I recommend stopping the heparin for now until this hematoma stabilizes. If the blister does erode or burst, local wound care could be performed safely. I expect that her leg will get slightly more swollen as the hematoma spreads out ecchymoses. Please call if this worse ns.
--- NOTE | 2018-03-23 13:27 | PDOC.PN ---
- Subjective Encounter Start Date: 03/23/18 Encounter Start Time: 10:20 Pt seen for followup re: anemia of acute blood loss. Feels well, no complaints. - Objective Resuscitation Status: Resuscitation Status FULL:Full Resuscitation MAR Reviewed: Yes Vital Signs & Weight: Vital Signs (12 hours) Temp Pulse Pulse Resp BP BP BP 03/23/18 12:19 96 16 03/23/18 11:19 98.2 F 99 20 122/57 L 03/23/18 10:59 98.2 F 101 H 19 107/54 L 03/23/18 08:00 03/23/18 07:37 03/23/18 07:34 103 H 16 03/23/18 07:20 98.6 F 104 H 18 109/72 03/23/18 04:32 99.3 F 108 H 18 102/51 L Pulse Ox 03/23/18 12:19 93 L 03/23/18 11:19 100 03/23/18 10:59 98 03/23/18 08:00 96 03/23/18 07:37 90 L 03/23/18 07:34 90 L 03/23/18 07:20 96 03/23/18 04:32 96 Weight Weight 114 lb 13.773 oz Most Recent Monitor Data Heart Rate from ECG 97 NIBP 137/59 NIBP BP-Mean 78 Respiration from ECG 18 SpO2 96 I&O: 03/22/18 03/23/18 03/24/18 06:59 06:59 06:59 Intake Total 1050 860 0 Output Total 0 Balance 1050 860 0 Result Diagrams: 03/24/18 04:27 03/24/18 04:27 EKG Reviewed by me: Yes (Tele: NSR) Phys Exam - Physical Examination Constitutional: NAD HEENT: moist MMs Neck: supple Respiratory: clear to auscultation bilateral Cardiovascular: RRR Gastrointestinal: soft Neurological: moves all 4 limbs Psychiatric: normal affect Deviation from normal: L groin hematoma appears stable Dx/Plan (1) Anemia associated with acute blood loss Code(s): D62 - ACUTE POSTHEMORRHAGIC ANEMIA Status: Acute Comment: hemoglobin improved to 7 from 6.9 after receiving one unit pRBC, will transfuse again and recheck. Unclear whether there is active blood loss, will get surgical opinion re: hematoma. (2) SVT (supraventricular tachycardia) Code(s): I47.1 - SUPRAVENTRICULAR TACHYCARDIA Status: Acute Comment: asymptomatic, now in NSR (3) Groin hematoma Code(s): S30.1XXA - CONTUSION OF ABDOMINAL WALL, INITIAL ENCOUNTER Status: Acute Comment: hb 7 today after one unit pRBC (4) Volume overload Code(s): E87.70 - FLUID OVERLOAD, UNSPECIFIED Status: Acute Comment: Improved (5) ESRD on peritoneal dialysis Code(s): N18.6 - END STAGE RENAL DISEASE; Z99.2 - DEPENDENCE ON RENAL DIALYSIS Status: Chronic Comment: transitioned to HD from PD (6) Acute on chronic respiratory failure with hypoxia Code(s): J96.21 - ACUTE AND CHRONIC RESPIRATORY FAILURE WITH HYPOXIA Status: Resolved - Plan * . Review of Systems - Review of Systems Respiratory: negative: Cough, Shortness of Breath, SOB with Excertion, Pleuritic Pain, Wheezing Cardiovascular: negative: chest pain, palpitations, orthopnea, paroxysmal nocturnal dyspnea, edema, light headedness - Medications/Allergies Allergies/Adverse Reactions: Allergies Allergy/AdvReac Type Severity Reaction Status Date / Time codeine Allergy Verified 04/27/16 21:10 erythromycin base Allergy Verified 04/27/16 21:10 Medications: Current Medications Acetaminophen (Tylenol) 1,000 mg PO Q6H PRN PRN Reason: Mild Pain (1-3) 1ST LINE Last Admin: 03/21/18 20:13 Dose: 1,000 mg Albuterol/Ipratropium (Duoneb) 3 ml NEB [id number] Last Admin: 03/23/18 12:19 Dose: 3 ml Atorvastatin Calcium (Lipitor) 20 mg PO HS [facility] Last Admin: 03/22/18 20:31 Dose: 20 mg Calcitriol (Rocaltrol) 0.5 mcg PO DAILY [facility] Last Admin: 03/23/18 08:28 Dose: 0.5 mcg Cefazolin Sodium (Ancef) 2 gm SLOW IVP ONCALL-OR [facility] Cholecalciferol (Vitamin D3) 2,000 units PO DAILY [facility] Last Admin: 03/23/18 08:28 Dose: 2,000 units Cinacalcet (Sensipar) 30 mg PO QAM-WM [facility] Last Admin: 03/23/18 08:28 Dose: 30 mg Donepezil HCl (Aricept) 10 mg PO HS [facility] Last Admin: 03/22/18 20:31 Dose: 10 mg Doxepin HCl (Sinequan) 50 mg PO HS [facility] Last Admin: 03/22/18 20:30 Dose: 50 mg Epoetin Antonio (Procrit) 7,500 units SC Q7D@1000 [facility] Last Admin: 03/18/18 13:09 Dose: 7,500 units Famotidine (Pepcid) 20 mg PO DAILY [facility] Last Admin: 03/23/18 08:28 Dose: 20 mg Mometasone Furoate/Formoterol Fumar (Dulera 200 Mcg/5 Mcg Inhaler) 2 puff INH BIDPRN [facility] Oxycodone HCl (Oxycodone Ir) 5 mg PO Q4H PRN PRN Reason: Moderate to Severe Pain (6-10) Last Admin: 03/22/18 15:55 Dose: 5 mg Polysaccharide Iron Complex (Niferex) 150 mg PO QAM-[facility] Last Admin: 03/23/18 08:28 Dose: 150 mg Senna/Docusate Sodium (Senokot S) 2 tab PO BIDPRN PRN PRN Reason: Constipation Vitamin B Complex/Vit C/Folic Acid (Nephro-Rolando Tablet) 1 tab PO DAILY [facility] Last Admin: 03/23/18 08:28 Dose: 1 tab
--- NOTE | 2018-03-23 14:51 | PDOC.CTH ---
Cardiology Progress Note - Subjective No new issues. - Objective Vital Signs Temp Pulse Pulse Resp BP BP BP 03/23/18 14:07 98.1 F 97 19 132/61 03/23/18 12:19 96 16 03/23/18 11:19 98.2 F 99 20 122/57 L 03/23/18 10:59 98.2 F 101 H 19 107/54 L 03/23/18 08:00 03/23/18 07:37 03/23/18 07:34 103 H 16 03/23/18 07:20 98.6 F 104 H 18 109/72 03/23/18 04:32 99.3 F 108 H 18 102/51 L Pulse Ox 03/23/18 14:07 100 03/23/18 12:19 93 L 03/23/18 11:19 100 03/23/18 10:59 98 03/23/18 08:00 96 03/23/18 07:37 90 L 03/23/18 07:34 90 L 03/23/18 07:20 96 03/23/18 04:32 96 Weight 114 lb 13.773 oz 03/22/18 03/23/18 03/24/18 06:59 06:59 06:59 Intake Total 1050 860 0 Output Total 0 Balance 1050 860 0 - Physical Examination General/Neuro: alert & oriented x3, NAD Neck: no JVD present Lungs: CTA, unlabored respirations Heart: RRR Abdomen: NT/ND Extremities: + edema B (2+ left leg) - Telemetry Telemetry Rhythm: S Tach HR 110's. - Labs Result Diagrams: 03/23/18 04:17 03/23/18 04:17 Troponin/CKMB CK-MB (CK-2) 5.9 ng/mL (0-6.6) 03/13/18 16:52 Troponin I 0.056 ng/mL (< 0.028) H 03/13/18 22:39 - Assessment/Plan 1. Non sustained SVT 2. Sinus tachycardia likely needed to compensate for anemia. 3. Large left groin hematoma. 4. Anemia, acute blood loss. 5. ESRD. PLAN: - Blood transfusion with HD as needed. - No BB for now as she needs her S tach for now. - Would start once anemia improved and before discharge. - Watch for left leg circulation, distal pulses.
[2018-03-23] MEDS: Atorvastatin Calcium 20 MG TAB PO SCH (20:38)
[2018-03-23] MEDS: Donepezil HCl 10 MG TAB PO SCH (20:38)
[2018-03-23] MEDS: Doxepin HCl 25 MG CAP PO SCH (20:38)
[2018-03-23] MEDS: oxyCODONE 5 MG TAB PO PRN (23:53)
[2018-03-24 04:57] LABS: #Basophils 0.1 thou/uL (0.0-0.2); #Eosinphils 0.3 thou/uL (0.0-0.7); #Monocytes 2.1 thou/uL (0.11-0.59); #Neutrophils 13.4 thou/uL (1.40-6.50); %Basophils 0.5 % (0.0-1.0); %Eosinophils 1.9 % (0.0-10.0); %Monocytes 11.7 % (0.0-10.0); %Neutrophils 74.9 % (42.0-75.0); Hemoglobin 8.1 g/dL (12.0-16.0); Mean Corpuscular HGB CONC 32.3 g/dL (32.0-36.0); Mean Corpuscular Hemoglobin 30.2 pg (27.0-31.0); Mean Corpuscular Volume 93.3 fL (78.0-98.0); Mean Platelet Volume 7.6 fL (7.4-10.4); Platelet Count 438 thou/uL (130-400); RBC Distribution Width 13.8 % (11.5-14.5); Red Blood Cell (RBC) Count 2.67 mill/uL (4.20-5.40)
[2018-03-24 05:20] LABS: Anion Gap 13 mmol/L (10-20); BUN (Urea Nitrogen) 35 mg/dL (9.8-20.1); Calc. Creatinine Clearance 9 mL/min (70-130); Calcium 8.4 mg/dL (7.8-10.44); Carbon Dioxide 26 mmol/L (23-31); Chloride 96 mmol/L (98-107); Estimated GFR-MDRD 10; Glucose 107 mg/dL (83-110); Potassium 4.4 mmol/L (3.5-5.1); Sodium 131 mmol/L (136-145)
--- NOTE | 2018-03-24 10:41 | PRG ---
DATE OF SERVICE: 03/24/2018 RENAL MEDICINE SUBJECTIVE: Ms. Ley is a 77-year-old white female with ESRD. She has now been converted from pe ritoneal dialysis to hemodialysis per the patient's request. She is unable to do peritoneal dialysis at home. She has also history of shortness of breath secondary to CHF as well as COPD exacerbation. She was also seen by Cardiology for a run of nonsustained ventricular tachycardia. No other compla ints today, doing well. I am currently dialyzing the patient today. I placed her on Monday, ay and Monday dialysis regimen. OBJECTIVE: VITAL SIGNS: Blood pressure is 130/62, heart rate 97, respiratory rate 16, pulse ox 95%, temperature 98.8. GENERAL: Awake, alert, comfortable, not in distress. SKIN: Adequate turgor. HEENT: Slightly pale conjunctivae, anicteric sclerae. NECK: No neck mass, no carotid bruits, no JVD. CHEST: No deformities. LUNGS: Decreased breath sounds. HEART: Normal sinus rhythm. No murmur, no gallops, no rubs. ABDOMEN: Globular, soft, nontender. No masses. EXTREMITIES: No edema, no deformities. MEDICATIONS: Medications of 03/24/2018 reviewed. LABORATORY DATA: Laboratories of 03/24/2018, white count 18, hemoglobin 8.1. Sodium 131, potassium 4.4, chloride 96, carbon dioxide 26, BUN 35, creatinine 4.43, glucose 107, calcium 8.4. ASSESSMENT AND PLAN: 1. End-stage renal disease, stable. Continue current hemodialysis regimen of Monday, and Monday. Again, fluid removal as tolerated by the patient. 2. Anemia, p.r.n. blood transfusion. Slightly improved with blood transfusion. Continue weekly Epo gen. 3. Shortness of breath, clinically much improved secondary to chronic obstructive pulmonary disease as well as mild congestive heart failure. Recheck base met and CBC in a.m. From a renal point of view, the patient can be discharged anytime.
[2018-03-24] MEDS ORDERED: Heparin 1,000 UNITS/ML VIAL ONE (11:11)
[2018-03-24] MEDS: Cinacalcet HCl 30 MG TAB PO SCH (12:33)
[2018-03-24] MEDS: Iron Polysaccharides Complex 150 MG CAP PO SCH (12:33)
[2018-03-24] MEDS: Famotidine 20 MG TAB PO SCH (12:33)
[2018-03-24] MEDS: Calcitriol 0.25 MCG CAP PO SCH (12:33)
[2018-03-24] MEDS: Folic Acid/Vit B Comp W-C PO SCH (12:34)
--- NOTE | 2018-03-24 15:42 | PDOC.PN ---
- Subjective Encounter Start Date: 03/24/18 Encounter Start Time: 15:41 Pt seen for followup re: anemia of acute blood loss. Denies chest pain, shortness of breath, fevers or chills. - Objective Resuscitation Status: Resuscitation Status FULL:Full Resuscitation MAR Reviewed: Yes Vital Signs & Weight: Vital Signs (12 hours) Temp Pulse Resp BP Pulse Ox 03/24/18 15:24 98.1 F 96 18 119/63 96 03/24/18 14:16 100 20 03/24/18 11:24 98.2 F 101 H 20 118/98 H 93 L 03/24/18 07:34 99 03/24/18 07:30 101 H 20 99 03/24/18 07:29 98.4 F 103 H 16 122/58 L 99 03/24/18 04:00 98.8 F 97 16 130/62 95 Weight Weight 122 lb 12.8 oz Most Recent Monitor Data Heart Rate from ECG 97 NIBP 137/59 NIBP BP-Mean 78 Respiration from ECG 18 SpO2 96 I&O: 03/23/18 03/24/18 03/25/18 06:59 06:59 06:59 Intake Total 860 1280 Output Total 0 0 Balance 860 1280 Result Diagrams: 03/24/18 04:27 03/24/18 04:27 EKG Reviewed by me: Yes (Tele: NSR) Phys Exam - Physical Examination Constitutional: NAD HEENT: moist MMs Neck: supple Respiratory: clear to auscultation bilateral Cardiovascular: RRR Gastrointestinal: soft Neurological: moves all 4 limbs Psychiatric: normal affect Deviation from normal: L groin hematoma Dx/Plan (1) Anemia associated with acute blood loss Code(s): D62 - ACUTE POSTHEMORRHAGIC ANEMIA Status: Acute Comment: hemoglobin improving (2) SVT (supraventricular tachycardia) Code(s): I47.1 - SUPRAVENTRICULAR TACHYCARDIA Status: Acute Comment: now in NSR. Await cardiology opinion re: 2D echo abnormalities (3) Groin hematoma Code(s): S30.1XXA - CONTUSION OF ABDOMINAL WALL, INITIAL ENCOUNTER Status: Acute Comment: hb 8.1 today (4) Volume overload Code(s): E87.70 - FLUID OVERLOAD, UNSPECIFIED Status: Acute Comment: Improved (5) ESRD on peritoneal dialysis Code(s): N18.6 - END STAGE RENAL DISEASE; Z99.2 - DEPENDENCE ON RENAL DIALYSIS Status: Chronic Comment: transitioned to HD from PD (6) Acute on chronic respiratory failure with hypoxia Code(s): J96.21 - ACUTE AND CHRONIC RESPIRATORY FAILURE WITH HYPOXIA Status: Resolved - Plan * . Review of Systems - Review of Systems Respiratory: negative: Cough, Shortness of Breath, SOB with Excertion, Pleuritic Pain, Wheezing Cardiovascular: negative: chest pain, palpitations, orthopnea, paroxysmal nocturnal dyspnea, edema, light headedness - Medications/Allergies Allergies/Adverse Reactions: Allergies Allergy/AdvReac Type Severity Reaction Status Date / Time codeine Allergy Verified 04/27/16 21:10 erythromycin base Allergy Verified 04/27/16 21:10 Medications: Current Medications Acetaminophen (Tylenol) 1,000 mg PO Q6H PRN PRN Reason: Mild Pain (1-3) 1ST LINE Last Admin: 03/21/18 20:13 Dose: 1,000 mg Albuterol/Ipratropium (Duoneb) 3 ml NEB [id number] [facility] Last Admin: 03/24/18 14:16 Dose: 3 ml Atorvastatin Calcium (Lipitor) 20 mg PO HS [facility] Last Admin: 03/23/18 20:38 Dose: 20 mg Calcitriol (Rocaltrol) 0.5 mcg PO DAILY [facility] Last Admin: 03/24/18 12:33 Dose: 0.5 mcg Cefazolin Sodium (Ancef) 2 gm SLOW IVP ONCALL-OR [facility] Cholecalciferol (Vitamin D3) 2,000 units PO DAILY [facility] Last Admin: 03/24/18 12:33 Dose: 2,000 units Cinacalcet (Sensipar) 30 mg PO QAM-WM [facility] Last Admin: 03/24/18 12:33 Dose: 30 mg Donepezil HCl (Aricept) 10 mg PO HS [facility] Last Admin: 03/23/18 20:38 Dose: 10 mg Doxepin HCl (Sinequan) 50 mg PO HS [facility] Last Admin: 03/23/18 20:38 Dose: 50 mg Epoetin Antonio (Procrit) 7,500 units SC Q7D@1000 [facility] Last Admin: 03/18/18 13:09 Dose: 7,500 units Famotidine (Pepcid) 20 mg PO DAILY [facility] Last Admin: 11/24/18 12:33 Dose: 20 mg Mometasone Furoate/Formoterol Fumar (Dulera 200 Mcg/5 Mcg Inhaler) 2 puff INH BIDPRN [facility] Oxycodone HCl (Oxycodone Ir) 5 mg PO Q4H PRN PRN Reason: Moderate to Severe Pain (6-10) Last Admin: 03/23/18 23:53 Dose: 5 mg Polysaccharide Iron Complex (Niferex) 150 mg PO QA-[facility] Last Admin: 03/24/18 12:33 Dose: 150 mg Senna/Docusate Sodium (Senokot S) 2 tab PO BIDPRN PRN PRN Reason: Constipation Vitamin B Complex/Vit C/Folic Acid (Nephro-Rolando Tablet) 1 tab PO DAILY [facility] Last Admin: 03/24/18 12:34 Dose: 1 tab
[2018-03-24] MEDS: Atorvastatin Calcium 20 MG TAB PO SCH (20:38)
[2018-03-24] MEDS: Doxepin HCl 25 MG CAP PO SCH (20:38)
[2018-03-24] MEDS: Donepezil HCl 10 MG TAB PO SCH (20:38)
--- NOTE | 2018-03-24 23:00 | PDOC.CTH ---
<Ana Mc - Last Filed: 03/24/18 23:02> Cardiology Progress Note - Subjective The pt seen and examined. No overnight events. No cardiac complaints. - Objective Vital Signs Temp Pulse Resp BP Pulse Ox 03/24/18 20:30 99.2 F 108 H 20 114/62 98 03/24/18 20:22 98 03/24/18 20:21 98 03/24/18 15:24 98.1 F 96 18 119/63 96 03/24/18 14:16 100 20 03/24/18 11:24 98.2 F 101 H 20 118/98 H 93 L Weight 122 lb 12.8 oz 03/23/18 03/24/18 03/25/18 06:59 06:59 06:59 Intake Total 860 1280 900 Output Total 0 0 325 Balance 860 1280 575 - Physical Examination General/Neuro: alert & oriented x3 Neck: no JVD present Lungs: other: (coarses ) Heart: RRR Abdomen: soft Extremities: other: (2+ pitting BLE edema) - Telemetry Telemetry Rhythm: ST - Labs Result Diagrams: 03/24/18 04:27 03/24/18 04:27 Troponin/CKMB CK-MB (CK-2) 5.9 ng/mL (0-6.6) 03/13/18 16:52 Troponin I 0.056 ng/mL (< 0.028) H 03/13/18 22:39 - Assessment/Plan 1. Non sustained SVT - stable; No BB for now as she needs her S tach for now. 2. ST 2/2 anemia. 3. Large Lt groin hematoma. 4. Anemia, acute blood loss. 5. ESRD with HD on , , Sat - 6. COPD - 7. Chronic diastolic HF - stable MAR reviewed * Watch for left leg circulation, distal pulses. Review of Systems - Review of Systems Constitutional: reports: no symptoms reported EENTM: reports: no symptoms reported Respiratory: reports: no symptoms reported Cardiac (ROS): reports: no symptoms reported ABD/GI: reports: no symptoms reported : reports: no symptoms reported Musculoskeletal: reports: no symptoms reported <Amparo Mitchell - Last Filed: 03/25/18 12:06> Cardiology Progress Note - Objective Vital Signs Temp Pulse Resp BP Pulse Ox 03/25/18 06:35 96 03/25/18 06:32 97 20 96 03/25/18 03:15 99.3 F 107 H 16 117/56 L 93 L Weight 122 lb 1.6 oz 03/24/18 03/25/18 03/26/18 06:59 06:59 06:59 Intake Total 1280 1050 Output Total 0 325 Balance 1280 725 - Labs Result Diagrams: 03/25/18 06:25 03/25/18 06:25 Troponin/CKMB CK-MB (CK-2) 5.9 ng/mL (0-6.6) 03/13/18 16:52 Troponin I 0.056 ng/mL (< 0.028) H 03/13/18 22:39 - Assessment/Plan Pt. seen and eval. by me. I agree with the A/P by the STAGING TECHNICIAN.
[2018-03-25 07:07] LABS: Anion Gap 10 mmol/L (10-20); BUN (Urea Nitrogen) 22 mg/dL (9.8-20.1); Calc. Creatinine Clearance 15 mL/min (70-130); Calcium 8.1 mg/dL (7.8-10.44); Carbon Dioxide 28 mmol/L (23-31); Chloride 97 mmol/L (98-107); Estimated GFR-MDRD 17; Glucose 99 mg/dL (83-110); Sodium 131 mmol/L (136-145)
[2018-03-25 07:16] LABS: Hemoglobin 7.5 g/dL (12.0-16.0); Mean Corpuscular HGB CONC 32.3 g/dL (32.0-36.0); Mean Corpuscular Hemoglobin 30.7 pg (27.0-31.0); Mean Corpuscular Volume 94.8 fL (78.0-98.0); Mean Platelet Volume 7.3 fL (7.4-10.4); Platelet Count 451 thou/uL (130-400); RBC Distribution Width 14.5 % (11.5-14.5); Red Blood Cell (RBC) Count 2.45 mill/uL (4.20-5.40); White Blood Cell (WBC) Count 13.8 thou/uL (4.8-10.8)
[2018-03-25 07:17] LABS: Band 3 % (5-11); Eosinophils 1 % (0-10); Lymphocytes 14 % (21-51); MDiff Complete? YES; Monocytes 10 % (0-10); Neutrophil 72 % (42-75)
[2018-03-25] MEDS: Cinacalcet HCl 30 MG TAB PO SCH (09:30)
[2018-03-25] MEDS: Calcitriol 0.25 MCG CAP PO SCH (09:31)
[2018-03-25] MEDS: Iron Polysaccharides Complex 150 MG CAP PO SCH (09:31)
[2018-03-25] MEDS: Folic Acid/Vit B Comp W-C PO SCH (09:31)
[2018-03-25] MEDS: Famotidine 20 MG TAB PO SCH (09:31)
--- NOTE | 2018-03-25 11:04 | PDOC.PN ---
- Subjective Encounter Start Date: 03/25/18 Encounter Start Time: 09:00 Pt seen for followup re: anemia of acute blood loss. No complaints today. - Objective Resuscitation Status: Resuscitation Status FULL:Full Resuscitation Vital Signs & Weight: Vital Signs (12 hours) Temp Pulse Resp BP Pulse Ox 03/25/18 06:35 96 03/25/18 06:32 97 20 96 03/25/18 03:15 99.3 F 107 H 16 117/56 L 93 L 03/25/18 00:02 98 Weight Weight 122 lb 1.6 oz Most Recent Monitor Data Heart Rate from ECG 97 NIBP 137/59 NIBP BP-Mean 78 Respiration from ECG 18 SpO2 96 I&O: 03/24/18 03/25/18 03/26/18 06:59 06:59 06:59 Intake Total 1280 1050 Output Total 0 325 Balance 1280 725 Result Diagrams: 03/25/18 06:25 03/25/18 06:25 Phys Exam - Physical Examination Constitutional: NAD HEENT: moist MMs Neck: supple Respiratory: clear to auscultation bilateral Cardiovascular: RRR Gastrointestinal: soft Neurological: moves all 4 limbs Psychiatric: normal affect Dx/Plan (1) Anemia associated with acute blood loss Code(s): D62 - ACUTE POSTHEMORRHAGIC ANEMIA Status: Acute Comment: hemoglobin 7.5 today, no evidence of active bleed (2) SVT (supraventricular tachycardia) Code(s): I47.1 - SUPRAVENTRICULAR TACHYCARDIA Status: Acute Comment: now in NSR. (3) Groin hematoma Code(s): S30.1XXA - CONTUSION OF ABDOMINAL WALL, INITIAL ENCOUNTER Status: Acute Comment: hb 7.5 today (4) Volume overload Code(s): E87.70 - FLUID OVERLOAD, UNSPECIFIED Status: Acute Comment: Improved (5) ESRD on peritoneal dialysis Code(s): N18.6 - END STAGE RENAL DISEASE; Z99.2 - DEPENDENCE ON RENAL DIALYSIS Status: Chronic Comment: transitioned to hemodialysis (6) Acute on chronic respiratory failure with hypoxia Code(s): J96.21 - ACUTE AND CHRONIC RESPIRATORY FAILURE WITH HYPOXIA Status: Resolved - Plan * . Review of Systems - Review of Systems Respiratory: negative: Cough, Shortness of Breath, SOB with Excertion, Pleuritic Pain, Wheezing Cardiovascular: negative: chest pain, palpitations, orthopnea, paroxysmal nocturnal dyspnea, edema, light headedness - Medications/Allergies Allergies/Adverse Reactions: Allergies Allergy/AdvReac Type Severity Reaction Status Date / Time codeine Allergy Verified 04/27/16 21:10 erythromycin base Allergy Verified 04/27/16 21:10 Medications: Current Medications Acetaminophen (Tylenol) 1,000 mg PO Q6H PRN PRN Reason: Mild Pain (1-3) 1ST LINE Last Admin: 03/21/18 20:13 Dose: 1,000 mg Albuterol/Ipratropium (Duoneb) 3 ml NEB [id number] [facility] Last Admin: 03/25/18 06:32 Dose: 3 ml Atorvastatin Calcium (Lipitor) 20 mg PO HS [facility] Last Admin: 03/24/18 20:38 Dose: 20 mg Calcitriol (Rocaltrol) 0.5 mcg PO DAILY [facility] Last Admin: 03/25/18 09:31 Dose: 0.5 mcg Cholecalciferol (Vitamin D3) 2,000 units PO DAILY [facility] Last Admin: 03/25/18 09:30 Dose: 2,000 units Cinacalcet (Sensipar) 30 mg PO QAM-[facility] Last Admin: 03/25/18 09:30 Dose: 30 mg Donepezil HCl (Aricept) 10 mg PO HS [facility] Last Admin: 03/24/18 20:38 Dose: 10 mg Doxepin HCl (Sinequan) 50 mg PO HS [facility] Last Admin: 03/24/18 20:38 Dose: 50 mg Epoetin Antonio (Procrit) 7,500 units SC Q7D@1000 [facility] Last Admin: 03/18/18 13:09 Dose: 7,500 units Famotidine (Pepcid) 20 mg PO DAILY [facility] Last Admin: 03/25/18 09:31 Dose: 20 mg Mometasone Furoate/Formoterol Fumar (Dulera 200 Mcg/5 Mcg Inhaler) 2 puff INH BIDPRN [facility] Oxycodone HCl (Oxycodone Ir) 5 mg PO Q4H PRN PRN Reason: Moderate to Severe Pain (6-10) Last Admin: 03/23/18 23:53 Dose: 5 mg Polysaccharide Iron Complex (Niferex) 150 mg PO QAM-[facility] Last Admin: 03/25/18 09:31 Dose: 150 mg Senna/Docusate Sodium (Senokot S) 2 tab PO BIDPRN PRN PRN Reason: Constipation Vitamin B Complex/Vit C/Folic Acid (Nephro-Rolando Tablet) 1 tab PO DAILY [facility] Last Admin: 03/25/18 09:31 Dose: 1 tab
[2018-03-25] MEDS: Epoetin (ESRD) 20,000 UNITS/ML SC SCH (12:06)
--- NOTE | 2018-03-25 12:08 | PDOC.CTH ---
Cardiology Progress Note - Subjective Pt. seen and eval. by me. No new events. - Objective Vital Signs Temp Pulse Resp BP Pulse Ox 03/25/18 06:35 96 03/25/18 06:32 97 20 96 03/25/18 03:15 99.3 F 107 H 16 117/56 L 93 L Weight 122 lb 1.6 oz 03/24/18 03/25/18 03/26/18 06:59 06:59 06:59 Intake Total 1280 1050 Output Total 0 325 Balance 1280 725 - Physical Examination General/Neuro: alert & oriented x3 Neck: no JVD present Lungs: CTA Heart: RRR Abdomen: soft - Labs Result Diagrams: 03/25/18 06:25 03/25/18 06:25 Troponin/CKMB CK-MB (CK-2) 5.9 ng/mL (0-6.6) 03/13/18 16:52 Troponin I 0.056 ng/mL (< 0.028) H 03/13/18 22:39 - Assessment/Plan 1. Non sustained SVT - stable; 2. ST 2/2 anemia. 3. Large Lt groin hematoma. 4. Anemia, acute blood loss. 5. ESRD with HD on , Th, Sat - 6. COPD - 7. Chronic diastolic HF - stable MAR reviewed
--- NOTE | 2018-03-25 12:24 | PRG ---
DATE OF SERVICE: 03/25/2018 SUBJECTIVE: Ms. Ley is a 77-year-old white female being followed by the [facility]al Service for ESRD a nd maintenance hemodialysis. She underwent hemodialysis yesterday without any difficulty. She was o riginally on peritoneal dialysis but has converted to hemodialysis due to the patient's inability to perform peritoneal dialysis. In the interim, she developed a left groin hematoma. She dropped her h emoglobin. For that reason, she has received blood transfusion. She is also currently on maintenanc e Epogen. No acute complaints today. PHYSICAL EXAMINATION: VITAL SIGNS: Blood pressure is 117/56, heart rate 97, respiratory rate 20, pulse ox 96%, temperature 99.3. GENERAL: Awake, supine, comfortable, not in distress. SKIN: Adequate turgor. HEENT: Slightly pale conjunctivae, anicteric sclerae. NECK: No neck mass, no carotid bruits, no JVD. CHEST: No deformities. LUNGS: Clear breath sounds, no wheezing, no crackles. HEART: Normal sinus rhythm. No murmur, no gallops or rubs. ABDOMEN: Globular, soft, nontender. No masses. EXTREMITIES: No edema, no deformities. MEDICATIONS: Medications of 03/25/2018, reviewed. LABORATORY DATA: Laboratories of 03/25/2018, white count 13.8, hemoglobin 7.5. Sodium 131, potassiu m 4, chloride 97, carbon dioxide 28, BUN 22, creatinine 2.76, calcium 8.1. ASSESSMENT AND PLAN: 1. Anemia. Hemoglobin noted to have dropped down. P.r.n. blood transfusion once hemoglobin is less than 7. Continue weekly Epogen. 2. End-stage renal disease, stable. No indication for any acute hemodialysis. My plan is to resume back dialysis this coming Monday. She is tolerating said treatment. 3. Dementia. Continue supportive care. Recheck CBC in a.m.
[2018-03-25] MEDS: Doxepin HCl 25 MG CAP PO SCH (21:10)
[2018-03-25] MEDS: Donepezil HCl 10 MG TAB PO SCH (21:10)
[2018-03-25] MEDS: Atorvastatin Calcium 20 MG TAB PO SCH (21:10)
[2018-03-26 06:17] LABS: Band 14 % (5-11); Eosinophils 3 % (0-10); Hemoglobin 7.5 g/dL (12.0-16.0); Lymphocytes 13 % (21-51); MDiff Complete? YES; Mean Corpuscular HGB CONC 32.1 g/dL (32.0-36.0); Mean Corpuscular Hemoglobin 30.6 pg (27.0-31.0); Mean Corpuscular Volume 95.3 fL (78.0-98.0); Mean Platelet Volume 7.6 fL (7.4-10.4); Monocytes 19 % (0-10); Neutrophil 51 % (42-75); Platelet Count 486 thou/uL (130-400); RBC Distribution Width 14.5 % (11.5-14.5); Red Blood Cell (RBC) Count 2.45 mill/uL (4.20-5.40); White Blood Cell (WBC) Count 13.7 thou/uL (4.8-10.8)
[2018-03-26] MEDS ORDERED: Sodium Chloride 0.9% 10 ML ONE ×2 (07:43→21:03)
--- NOTE | 2018-03-26 08:42 | PRG ---
DATE OF SERVICE: 03/26/2018. SUBJECTIVE: Ms. Ley is a 77-year-old white female being [facility] The patient has no new complaints today. She is scheduled for dialysis in t he a.m. The patient denies any chest pain or shortness of breath. PHYSICAL EXAMINATION: VITAL SIGNS: Blood pressure is 127/61, heart rate 102, respiratory rate 22, pulse ox 100%. GENERAL: Noted to be awake, alert, comfortable, not in distress. SKIN: Adequate turgor. HEENT: Slightly pale conjunctivae. Anicteric sclerae. NECK: No neck mass, no carotid bruits. No JVD. CHEST: No deformities. LUNGS: Clear breath sounds, occasional wheezing, no crackles. HEART: Normal sinus rhythm. No murmur, no gallops or rubs. ABDOMEN: Globular, soft, nontender, no masses. EXTREMITIES: No edema, no deformities. MEDICATIONS: 03/26/2018 - Reviewed. LABORATORY: 03/26/2018 - White count 13.7, hemoglobin 7.5. Sodium 131, potassium 4, chloride 97, ca rbon dioxide 28, BUN 22, creatinine 2.76, calcium 8.1. ASSESSMENT AND PLAN: 1. End-stage renal disease, stable. We will continue current Monday, , and Monday dialys is regimen. She is tolerating treatment. No heparin is being used due to recent left groin bleed/he matoma. 2. Anemia - status post bleeding from the left groin - stabilizing H&H. Continue weekly Epogen. 3. Dementia. Continue supportive care. Please note patient is tolerating the hemodialysis regimen.
[2018-03-26] MEDS: Calcitriol 0.25 MCG CAP PO SCH (08:45)
[2018-03-26] MEDS: Cinacalcet HCl 30 MG TAB PO SCH (08:45)
[2018-03-26] MEDS: Folic Acid/Vit B Comp W-C PO SCH (08:45)
[2018-03-26] MEDS: Famotidine 20 MG TAB PO SCH (08:46)
[2018-03-26] MEDS: Iron Polysaccharides Complex 150 MG CAP PO SCH (08:51)
--- NOTE | 2018-03-26 15:21 | PDOC.PN ---
- Subjective Encounter Start Date: 03/26/18 Encounter Start Time: 08:20 Pt seen for followup re: posthemorrhagic anemia. Feels well, denies chest pain , shortness of breath, fevers or chills. - Objective Resuscitation Status: Resuscitation Status FULL:Full Resuscitation MAR Reviewed: Yes Vital Signs & Weight: Vital Signs (12 hours) Temp Pulse Resp BP Pulse Ox 03/26/18 14:16 96 18 97 03/26/18 12:17 98.3 F 102 H 20 121/57 L 96 03/26/18 08:40 97.9 F 102 H 19 122/60 97 03/26/18 08:05 102 H 22 H 100 Weight Admit Weight 126 lb 4.8 oz Weight 122 lb 9.6 oz Most Recent Monitor Data Heart Rate from ECG 97 NIBP 137/59 NIBP BP-Mean 78 Respiration from ECG 18 SpO2 96 I&O: 03/25/18 03/26/18 03/27/18 06:59 06:59 06:59 Intake Total 1050 250 Output Total 325 Balance 725 250 Result Diagrams: 03/26/18 04:28 03/25/18 06:25 EKG Reviewed by me: Yes (Tele: sinus tachycardia) Phys Exam - Physical Examination Constitutional: NAD HEENT: moist MMs Neck: supple Respiratory: clear to auscultation bilateral Cardiovascular: RRR Gastrointestinal: soft Neurological: moves all 4 limbs Psychiatric: normal affect Deviation from normal: left groin hematoma Dx/Plan (1) Anemia associated with acute blood loss Code(s): D62 - ACUTE POSTHEMORRHAGIC ANEMIA Status: Acute Comment: hemoglobin 7.5 today, no evidence of active bleed. Pt continues to have sinus tachycardia, likely due to demand, will transfuse one unit pRBC. (2) Groin hematoma Code(s): S30.1XXA - CONTUSION OF ABDOMINAL WALL, INITIAL ENCOUNTER Status: Acute Comment: wound care service requesting surgical service reeval (3) Volume overload Code(s): E87.70 - FLUID OVERLOAD, UNSPECIFIED Status: Acute Comment: Improved (4) ESRD on peritoneal dialysis Code(s): N18.6 - END STAGE RENAL DISEASE; Z99.2 - DEPENDENCE ON RENAL DIALYSIS Status: Chronic Comment: transitioned to hemodialysis during this hospitalization (5) Acute on chronic respiratory failure with hypoxia Code(s): J96.21 - ACUTE AND CHRONIC RESPIRATORY FAILURE WITH HYPOXIA Status: Resolved (6) SVT (supraventricular tachycardia) Code(s): I47.1 - SUPRAVENTRICULAR TACHYCARDIA Status: Resolved Comment: now in sinus tachycardia - Plan * . Review of Systems - Medications/Allergies Allergies/Adverse Reactions: Allergies Allergy/AdvReac Type Severity Reaction Status Date / Time codeine Allergy Verified 04/27/16 21:10 erythromycin base Allergy Verified 04/27/16 21:10 Medications: Current Medications Acetaminophen (Tylenol) 1,000 mg PO Q6H PRN PRN Reason: Mild Pain (1-3) 1ST LINE Last Admin: 03/21/18 20:13 Dose: 1,000 mg Albuterol/Ipratropium (Duoneb) 3 ml NEB [id number] Last Admin: 03/26/18 14:16 Dose: 3 ml Atorvastatin Calcium (Lipitor) 20 mg PO HS [facility] Last Admin: 03/25/18 21:10 Dose: 20 mg Calcitriol (Rocaltrol) 0.5 mcg PO DAILY [facility] Last Admin: 03/26/18 08:45 Dose: 0.5 mcg Cholecalciferol (Vitamin D3) 2,000 units PO DAILY [facility] Last Admin: 03/26/18 08:46 Dose: 2,000 units Cinacalcet (Sensipar) 30 mg PO QAM-WM [facility] Last Admin: 03/26/18 08:45 Dose: 30 mg Donepezil HCl (Aricept) 10 mg PO HS [facility] Last Admin: 03/25/18 21:10 Dose: 10 mg Doxepin HCl (Sinequan) 50 mg PO HS [facility] Last Admin: 03/25/18 21:10 Dose: 50 mg Epoetin Antonio (Procrit) 7,500 units SC Q7D@1000 [facility] Last Admin: 03/25/18 12:06 Dose: 7,500 units Famotidine (Pepcid) 20 mg PO DAILY [facility] Last Admin: 03/26/18 08:46 Dose: 20 mg Mometasone Furoate/Formoterol Fumar (Dulera 200 Mcg/5 Mcg Inhaler) 2 puff INH BIDPRN [facility] Oxycodone HCl (Oxycodone Ir) 5 mg PO Q4H PRN PRN Reason: Moderate to Severe Pain (6-10) Last Admin: 03/23/18 23:53 Dose: 5 mg Polysaccharide Iron Complex (Niferex) 150 mg PO QAM-[facility] Last Admin: 03/26/18 08:51 Dose: 150 mg Senna/Docusate Sodium (Senokot S) 2 tab PO BIDPRN PRN PRN Reason: Constipation Vitamin B Complex/Vit C/Folic Acid (Nephro-Rolando Tablet) 1 tab PO DAILY [facility] Last Admin: 03/26/18 08:45 Dose: 1 tab
--- NOTE | 2018-03-26 16:22 | PDOC.CTH ---
Cardiology Progress Note - Subjective No new issues. She feels better. - Objective Vital Signs Temp Pulse Pulse Resp BP BP Pulse Ox 03/26/18 15:28 97.9 F 97 19 122/60 96 03/26/18 14:16 96 18 97 03/26/18 12:17 98.3 F 102 H 20 121/57 L 96 03/26/18 08:40 97.9 F 102 H 19 122/60 97 03/26/18 08:05 102 H 22 H 100 Admit Weight 126 lb 4.8 oz Weight 122 lb 9.6 oz 03/25/18 03/26/18 03/27/18 06:59 06:59 06:59 Intake Total 1050 250 0 Output Total 325 Balance 725 250 0 - Physical Examination General/Neuro: alert & oriented x3, NAD Neck: no JVD present Lungs: CTA, unlabored respirations Heart: RRR Abdomen: NT/ND Extremities: other: (left groin hematoma improving.) - Telemetry Telemetry Rhythm: NSR - Labs Result Diagrams: 03/26/18 04:28 03/25/18 06:25 Troponin/CKMB CK-MB (CK-2) 5.9 ng/mL (0-6.6) 03/13/18 16:52 Troponin I 0.056 ng/mL (< 0.028) H 03/13/18 22:39 - Assessment/Plan 1. Non sustained SVT 2. Sinus tachycardia likely needed to compensate for anemia. 3. Large left groin hematoma. 4. Anemia, acute blood loss. 5. ESRD. PLAN: - Blood transfusion with HD as needed. - No BB for now as she needs her Sinus tach for now. - Would start once anemia improved and before discharge. - Watch for left leg circulation, distal pulses, easier to palpate pulses today. - Will sign off, please call with any questions.
[2018-03-26] MEDS: Atorvastatin Calcium 20 MG TAB PO SCH (21:21)
[2018-03-26] MEDS: Donepezil HCl 10 MG TAB PO SCH (21:22)
[2018-03-26] MEDS: Acetaminophen 500 MG TAB PO PRN (21:22)
[2018-03-26] MEDS: Doxepin HCl 25 MG CAP PO SCH (21:22)
[2018-03-26] MEDS: oxyCODONE 5 MG TAB PO PRN (23:43)
--- NOTE | 2018-03-27 08:08 | PRG ---
DATE OF SERVICE: 03/27/2018 SUBJECTIVE: Ms. Ley is a 77-year-old white female being followed by the Renal Service for her ma intenance hemodialysis. I am at the bedside supervising her dialysis. She voices no new complaints. No chest pain or shortness of breath. Please note, this patient underwent a nonsustained V-tach an d Cardiology asked to follow the patient. Recommendation is simple observation. She also developed a groin hematoma, which she needed some blood transfusion. OBJECTIVE: VITAL SIGNS: Blood pressure is 143/68, heart rate 100, respiratory rate 23, temperature 97.9, pulse ox 97%. GENERAL: Awake, comfortable, not in distress. SKIN: Adequate turgor. HEENT: Slightly pale conjunctivae, anicteric sclerae. NECK: No neck mass, no carotid bruits, no JVD. CHEST: No deformities. LUNGS: Clear breath sounds. HEART: Normal sinus rhythm. No murmur, no gallops, no rubs. ABDOMEN: Globular, soft, nontender, no masses. EXTREMITIES: No edema, no deformities. MEDICATIONS: Of 03/27/2018 was reviewed. LABORATORY DATA: Of 03/26/2018, white count 13.7, hemoglobin 7.5. On 03/25/2018, sodium 131, potass ium 4, chloride 97, carbon dioxide 28, BUN 22, creatinine 2.76, glucose 99, calcium 8.1. ASSESSMENT AND PLAN: 1. Anemia - patient currently on weekly Epogen. Adjust Epogen to 10,000 units subcutaneously every week. 2. End-stage renal disease, stable. Tolerating current hemodialysis regimen. We will continue , , and Monday dialysis. 3. Status post hematoma, left groin - much improved and stable. No evidence of active bleeding. 4. Nonsustained ventricular tachycardia - supportive care. Cardiology has signed off. Last cardiac echo shows normal EF. Agree with current management.
[2018-03-27] MEDS ORDERED: Epoetin (ESRD) 20,000 UNITS/ML SC SCH (10:00)
[2018-03-27] MEDS ORDERED: Heparin 1,000 UNITS/ML VIAL ONE (11:11)
--- NOTE | 2018-03-27 12:15 | PDOC.PN ---
- Subjective Encounter Start Date: 03/27/18 Encounter Start Time: 12:14 Feels ok. Feels like her breathing is at baseline for her. - Objective MAR Reviewed: Yes Vital Signs & Weight: Vital Signs (12 hours) Temp Pulse Resp BP Pulse Ox 03/27/18 11:45 97.3 F L 105 H 22 H 141/67 H 98 03/27/18 04:00 97.9 F 100 23 H 143/68 H 97 03/27/18 00:33 98 18 97 Weight Admit Weight 126 lb 4.8 oz Weight 126 lb 1.6 oz Most Recent Monitor Data Heart Rate from ECG 97 NIBP 137/59 NIBP BP-Mean 78 Respiration from ECG 18 SpO2 96 I&O: 03/26/18 03/27/18 03/28/18 06:59 06:59 06:59 Intake Total 250 1380 Output Total 0 Balance 250 1380 Result Diagrams: 03/26/18 04:28 03/25/18 06:25 Phys Exam - Physical Examination Constitutional: NAD Scattered rales, mild tachypnea. Diminished breath sounds. Cardiovascular: RRR, no significant murmur Tachy Gastrointestinal: soft, non-tender Musculoskeletal: no edema Large, tight left groin hematoma with 3-4 cm eschar medial-central area. Neurological: non-focal [employer] Psychiatric: normal affect, A&O x 3 Dx/Plan (1) ESRD on peritoneal dialysis Code(s): N18.6 - END STAGE RENAL DISEASE; Z99.2 - DEPENDENCE ON RENAL DIALYSIS Status: Chronic Comment: transitioned to hemodialysis during this hospitalization (2) Groin hematoma Code(s): S30.1XXA - CONTUSION OF ABDOMINAL WALL, INITIAL ENCOUNTER Status: Acute Comment: Secondary to line placement. (3) Anemia associated with acute blood loss Code(s): D62 - ACUTE POSTHEMORRHAGIC ANEMIA Status: Acute Comment: hemoglobin 7.5 today, no evidence of active bleed. Pt continues to have sinus tachycardia, likely due to demand, will transfuse one unit pRBC. (4) Volume overload Code(s): E87.70 - FLUID OVERLOAD, UNSPECIFIED Status: Acute Comment: Improved (5) SVT (supraventricular tachycardia) Code(s): I47.1 - SUPRAVENTRICULAR TACHYCARDIA Status: Resolved Comment: now in sinus tachycardia (6) Anemia of renal disease Code(s): D63.1 - ANEMIA IN CHRONIC KIDNEY DISEASE Status: Chronic (7) Acute on chronic respiratory failure with hypoxia Code(s): J96.21 - ACUTE AND CHRONIC RESPIRATORY FAILURE WITH HYPOXIA Status: Resolved - Plan * Surgical eval today for groin hematoma. * Recheck counts today. * If hematoma stable and does not require intervention and counts stable, start beta susana. * Breathing is not great, but she feels it is her baseline.
[2018-03-27] MEDS: Folic Acid/Vit B Comp W-C PO SCH (12:44)
[2018-03-27] MEDS: Cinacalcet HCl 30 MG TAB PO SCH (12:44)
[2018-03-27] MEDS: Iron Polysaccharides Complex 150 MG CAP PO SCH (12:44)
[2018-03-27] MEDS: Calcitriol 0.25 MCG CAP PO SCH (12:44)
[2018-03-27] MEDS: Famotidine 20 MG TAB PO SCH (12:44)
[2018-03-27 13:43] LABS: #Basophils 0.1 thou/uL (0.0-0.2); #Eosinphils 0.5 thou/uL (0.0-0.7); #Monocytes 1.4 thou/uL (0.11-0.59); #Neutrophils 8.8 thou/uL (1.40-6.50); %Basophils 0.5 % (0.0-1.0); %Eosinophils 4.3 % (0.0-10.0); %Lymphocytes 8.8 % (21.0-51.0); %Monocytes 11.5 % (0.0-10.0); %Neutrophils 74.8 % (42.0-75.0); Mean Corpuscular HGB CONC 31.7 g/dL (32.0-36.0); Mean Corpuscular Hemoglobin 30.2 pg (27.0-31.0); Mean Corpuscular Volume 95.1 fL (78.0-98.0); Mean Platelet Volume 7.1 fL (7.4-10.4); Platelet Count 583 thou/uL (130-400); Red Blood Cell (RBC) Count 3.64 mill/uL (4.20-5.40); White Blood Cell (WBC) Count 11.8 thou/uL (4.8-10.8)
[2018-03-27 13:59] LABS: Anion Gap 13 mmol/L (10-20); BUN (Urea Nitrogen) 14 mg/dL (9.8-20.1); Calc. Creatinine Clearance 21 mL/min (70-130); Carbon Dioxide 26 mmol/L (23-31); Chloride 101 mmol/L (98-107); Estimated GFR-MDRD 23; Glucose 88 mg/dL (83-110); Sodium 136 mmol/L (136-145)
[2018-03-27] MEDS: Donepezil HCl 10 MG TAB PO SCH (21:18)
[2018-03-27] MEDS: oxyCODONE 5 MG TAB PO PRN (21:18)
[2018-03-27] MEDS: Atorvastatin Calcium 20 MG TAB PO SCH (21:18)
[2018-03-27] MEDS: Doxepin HCl 25 MG CAP PO SCH (21:18)
[2018-03-28 05:53] LABS: #Basophils 0.1 thou/uL (0.0-0.2); #Eosinphils 0.5 thou/uL (0.0-0.7); #Lymphocytes 1.7 thou/uL (1.20-3.40); #Monocytes 1.7 thou/uL (0.11-0.59); #Neutrophils 7.9 thou/uL (1.40-6.50); %Basophils 0.5 % (0.0-1.0); %Lymphocytes 14.1 % (21.0-51.0); %Monocytes 14.1 % (0.0-10.0); %Neutrophils 67.3 % (42.0-75.0); Hemoglobin 9.7 g/dL (12.0-16.0); Mean Corpuscular HGB CONC 31.2 g/dL (32.0-36.0); Mean Corpuscular Volume 96.2 fL (78.0-98.0); Platelet Count 600 thou/uL (130-400); RBC Distribution Width 14.1 % (11.5-14.5); Red Blood Cell (RBC) Count 3.22 mill/uL (4.20-5.40); White Blood Cell (WBC) Count 11.8 thou/uL (4.8-10.8)
[2018-03-28] MEDS: Cinacalcet HCl 30 MG TAB PO SCH (08:48)
[2018-03-28] MEDS: Calcitriol 0.25 MCG CAP PO SCH (08:48)
[2018-03-28] MEDS: Famotidine 20 MG TAB PO SCH (08:48)
[2018-03-28] MEDS: Folic Acid/Vit B Comp W-C PO SCH (08:48)
[2018-03-28] MEDS: Iron Polysaccharides Complex 150 MG CAP PO SCH (08:48)
[2018-03-28] MEDS ORDERED: Fentanyl 100 MCG/2 ML VIAL ONE (09:58)
[2018-03-28] MEDS ORDERED: traMADol HCl 50 MG TAB PO PRN ×2 (11:04)
[2018-03-28] MEDS ORDERED: Albuterol Sulfate 1.25 MG/3 ML NEB ONE (11:48)
[2018-03-28] MEDS ORDERED: Ondansetron HCl/PF 4 MG/2 ML Vial IVP PRN (11:58)
[2018-03-28] MEDS ORDERED: Promethazine HCl 25 MG/ML VIAL IM PRN (11:58)
[2018-03-28] MEDS ORDERED: Promethazine HCl 25 MG/ML VIAL SLOW IVP PRN (11:58)
--- NOTE | 2018-03-28 12:44 | PRG ---
DATE OF SERVICE: 03/27/2018 SUBJECTIVE: Ms. Ley is doing well today. She is on dialysis Monday, Monday, and Monday. The patient had a left groin central line that has been removed. She had a hematoma. I have been asked to see her regarding this. She has cellulitis around this and a large hematoma with about a 4 cm skin necrosis. Her hemoglobin remains stable. Basic metabolic profile consistent with her end-stage renal disease. Right arm fistula placed on 03/16/2018 basilic vein. Removal of her PD catheter and placement right femoral vein tunneled dialysis catheter due to inability to access her vena cava via her IJ's. She probably will need a basilic vein transposition fistula in the future. ASSESSMENT: Left groin hematoma with skin necrosis. PLAN: Incision and drainage and washout debridement. Tomorrow, she will need a wound VAC. Home health will be needed at home to help her with her wound care. This will delay her discharge. In addition, the patient has a left proximal forearm IV and this should be removed as soon as possible and will order that. We can use her hemodialysis catheter of right groin for IV access during the operation. She may need a central line for the next few days during her hospitalization. Job ID: [id number]
--- NOTE | 2018-03-28 19:21 | OP ---
DATE OF PROCEDURE: 03/28/2018 PREOPERATIVE DIAGNOSES: Left groin hematoma with a 6 x 6 cm necrotic skin with subcutaneous tissue, eschar from central line. POSTOPERATIVE DIAGNOSES: Left groin hematoma with a 6 x 6 cm necrotic skin with subcutaneous tissue, eschar from central line with bleeding from the femoral vein. PROCEDURE PERFORMED: Sharp debridement, resectional, excisional eschar, skin, and subcutaneous tissue, 6 x 6 cm, left groin, medial thigh crease area, upper thigh, with evacuation hematoma, pulse irrigation, washout, and lateral venorrhaphy repair of femoral vein that was bleeding, with 4-0 Prolene suture. ANESTHESIA: General. DESCRIPTION OF PROCEDURE: The patient was taken to the operating room. Under general anesthesia, in dorsal lithotomy position using stirrups, the anterior medial thigh, proximally, and groin were prepared with Betadine and draped in routine fashion. Eschar was removed sharply. There was abundant amount of hematoma, evacuated. There was bleeding from overlying the femoral triangle area and using retractions, was able to visualize the bleeding point, which was the femoral vein, probably where the central line was placed. Lateral venorrhaphy with 4-0 Prolene was undertaken. Vein was of good quality. There was no available tissue to mobilize due to the inflammatory action from this large hematoma. Wound irrigated, Surgicel applied. Decision was made to not place a wound VAC, instead place a Surgicel and guaze, wet-to-dry dressings for now. The patient tolerated the procedure well without complications as the wound was packed open. Job ID: [id number]
[2018-03-28] MEDS: Doxepin HCl 25 MG CAP PO SCH (20:52)
[2018-03-28] MEDS: Donepezil HCl 10 MG TAB PO SCH (20:52)
[2018-03-28] MEDS: Atorvastatin Calcium 20 MG TAB PO SCH (20:52)
[2018-03-28] MEDS: oxyCODONE 5 MG TAB PO PRN (20:52)
--- NOTE | 2018-03-28 22:36 | PDOC.PN ---
- Subjective Encounter Start Date: 03/28/18 Encounter Start Time: 14:00 Doing well overall. Tolerated the surgery well. - Objective Resuscitation Status - Order Detail: 03/27/18 12:51 Resuscitation Status Routine Resuscitation Status: FULL: Full Resuscitation Discussed with: per previous order Vital Signs & Weight: Vital Signs (12 hours) Temp Pulse Resp BP Pulse Ox 03/28/18 19:20 109 H 18 96 03/28/18 16:31 97.9 F 107 H 18 153/74 H 98 03/28/18 13:27 102 H 16 94 L 03/28/18 12:59 97.9 F 103 H 18 137/61 98 Weight Admit Weight 126 lb 4.8 oz Weight 125 lb 6.4 oz Most Recent Monitor Data Heart Rate from ECG 97 NIBP 137/59 NIBP BP-Mean 78 Respiration from ECG 18 SpO2 96 I&O: 03/27/18 03/28/18 03/29/18 06:59 06:59 06:59 Intake Total 1380 820 480 Output Total 0 2100 Balance 1380 -1280 480 Result Diagrams: 03/28/18 04:55 03/27/18 13:30 Phys Exam - Physical Examination Constitutional: NAD Occ scattered rales. Cardiovascular: RRR, no significant murmur, no rub Gastrointestinal: soft, non-tender, no distention Musculoskeletal: no edema Left groin packed. Psychiatric: normal affect, A&O x 3 Dx/Plan (1) ESRD on peritoneal dialysis Code(s): N18.6 - END STAGE RENAL DISEASE; Z99.2 - DEPENDENCE ON RENAL DIALYSIS Status: Chronic Comment: transitioned to hemodialysis during this hospitalization (2) Groin hematoma Code(s): S30.1XXA - CONTUSION OF ABDOMINAL WALL, INITIAL ENCOUNTER Status: Acute Comment: Secondary to line placement. (3) Anemia associated with acute blood loss Code(s): D62 - ACUTE POSTHEMORRHAGIC ANEMIA Status: Acute Comment: hemoglobin 7.5 today, no evidence of active bleed. Pt continues to have sinus tachycardia, likely due to demand, will transfuse one unit pRBC. (4) Volume overload Code(s): E87.70 - FLUID OVERLOAD, UNSPECIFIED Status: Acute Comment: Improved (5) SVT (supraventricular tachycardia) Code(s): I47.1 - SUPRAVENTRICULAR TACHYCARDIA Status: Resolved Comment: now in sinus tachycardia (6) Anemia of renal disease Code(s): D63.1 - ANEMIA IN CHRONIC KIDNEY DISEASE Status: Chronic (7) Acute on chronic respiratory failure with hypoxia Code(s): J96.21 - ACUTE AND CHRONIC RESPIRATORY FAILURE WITH HYPOXIA Status: Resolved - Plan * Doing well after surgery to debride hematoma. * Will start beta susana as the hemoglobin is improved to reduce risk of SVT. * Will need to work on wound care for a few days to ensure the bleeding has stopped.
[2018-03-29 05:38] LABS: #Basophils 0.1 thou/uL (0.0-0.2); #Eosinphils 0.6 thou/uL (0.0-0.7); #Lymphocytes 2.2 thou/uL (1.20-3.40); #Monocytes 1.8 thou/uL (0.11-0.59); #Neutrophils 10.7 thou/uL (1.40-6.50); %Basophils 0.8 % (0.0-1.0); %Lymphocytes 13.9 % (21.0-51.0); %Monocytes 11.8 % (0.0-10.0); %Neutrophils 69.6 % (42.0-75.0); Hemoglobin 8.1 g/dL (12.0-16.0); Mean Corpuscular HGB CONC 32.1 g/dL (32.0-36.0); Mean Corpuscular Hemoglobin 30.8 pg (27.0-31.0); Mean Corpuscular Volume 95.8 fL (78.0-98.0); Mean Platelet Volume 6.9 fL (7.4-10.4); Platelet Count 665 thou/uL (130-400); RBC Distribution Width 13.7 % (11.5-14.5); Red Blood Cell (RBC) Count 2.64 mill/uL (4.20-5.40); White Blood Cell (WBC) Count 15.4 thou/uL (4.8-10.8)
[2018-03-29 05:54] LABS: Anion Gap 13 mmol/L (10-20); BUN (Urea Nitrogen) 28 mg/dL (9.8-20.1); Calc. Creatinine Clearance 12 mL/min (70-130); Calcium 8.9 mg/dL (7.8-10.44); Carbon Dioxide 27 mmol/L (23-31); Chloride 98 mmol/L (98-107); Estimated GFR-MDRD 12; Glucose 107 mg/dL (83-110); Sodium 133 mmol/L (136-145)
--- NOTE | 2018-03-29 08:55 | PRG ---
DATE OF SERVICE: 03/29/2018 SUBJECTIVE: Ms. Ley is a 77-year-old white female with ESRD and followed by the [facility] for maintenance hemodialysis. She is to undergo hemodialysis today. Using no heparin. Fluid removal on as tolerated. In the interim, the patient had a sharp debridement and resection of her left groin hematoma. No other complaints. No chest pain or shortness of breath. OBJECTIVE: VITAL SIGNS: Blood pressure is noted at 129/64, heart rate 108, respiratory rate 20, temperature 98.6, and oxygen saturation 96%. GENERAL: Awake, alert, comfortable, not in distress. SKIN: Adequate turgor. HEENT: She has pinkish conjunctivae. Anicteric sclerae. NECK: No neck mass. No carotid bruits. No JVD. CHEST: No deformities. LUNGS: Clear breath sounds. HEART: Normal sinus rhythm. No murmur. No gallops. No rubs. ABDOMEN: Globular, soft, nontender. No masses. EXTREMITIES: No edema. No deformities. MEDICATIONS: Medications of March 29, 2018, was reviewed. LABORATORY DATA: Laboratories of March 29, 2018, white count 15.4, hemoglobin 8.1. Sodium 138, potassium 5, chloride 98, carbon dioxide 27, BUN 28, creatinine 3.63, glucose 107, and calcium 8.9. ASSESSMENT AND PLAN: 1. End-stage renal disease, stable. Continuing current hemodialysis regimen. Fluid removal as tolerated. No heparin use. Continue 3 times a week dialysis. 2. Anemia. Continuing weekly Epogen - recently increased to 10,000 units subcu weekly, p.r.n. blood transfusion. 3. Left groin hematoma, status post resection by Dr. Le. No evidence of acute bleeding. Job ID: [id number]
[2018-03-29] MEDS ORDERED: Heparin 1,000 UNITS/ML VIAL ONE (11:11)
[2018-03-29] MEDS: Folic Acid/Vit B Comp W-C PO SCH (12:35)
[2018-03-29] MEDS: Calcitriol 0.25 MCG CAP PO SCH (12:36)
[2018-03-29] MEDS: Cinacalcet HCl 30 MG TAB PO SCH (12:36)
[2018-03-29] MEDS: Iron Polysaccharides Complex 150 MG CAP PO SCH (12:37)
[2018-03-29] MEDS: Famotidine 20 MG TAB PO SCH (12:37)
[2018-03-29] MEDS: oxyCODONE 5 MG TAB PO PRN ×2 (13:27→21:32)
--- NOTE | 2018-03-29 14:31 | PDOC.PN ---
- Subjective Encounter Start Date: 03/29/18 Encounter Start Time: 12:50 Doing ok overall. No complaints. Getting dressing change now. Has some discomfort with that. - Objective Resuscitation Status - Order Detail: 03/27/18 12:51 Resuscitation Status Routine Resuscitation Status: FULL: Full Resuscitation Discussed with: per previous order Vital Signs & Weight: Vital Signs (12 hours) Temp Pulse Resp BP Pulse Ox 03/29/18 12:25 85 L 03/29/18 12:22 110 H 20 85 L 03/29/18 04:00 98 F 108 H 20 129/64 96 Weight Admit Weight 126 lb 4.8 oz Weight 120 lb Most Recent Monitor Data Heart Rate from ECG 97 NIBP 137/59 NIBP BP-Mean 78 Respiration from ECG 18 SpO2 96 I&O: 03/28/18 03/29/18 03/30/18 06:59 06:59 06:59 Intake Total 820 960 Output Total 2100 0 Balance -1280 960 Result Diagrams: 03/29/18 05:14 03/29/18 05:14 Phys Exam - Physical Examination Constitutional: NAD Respiratory: no wheezing Scattered rales. Diminished. Cardiovascular: RRR, no significant murmur Gastrointestinal: soft, non-tender, no distention, positive bowel sounds Musculoskeletal: no edema Psychiatric: normal affect, A&O x 3 Dx/Plan (1) ESRD on peritoneal dialysis Code(s): N18.6 - END STAGE RENAL DISEASE; Z99.2 - DEPENDENCE ON RENAL DIALYSIS Status: Chronic Comment: transitioned to hemodialysis during this hospitalization (2) Groin hematoma Code(s): S30.1XXA - CONTUSION OF ABDOMINAL WALL, INITIAL ENCOUNTER Status: Acute Comment: Secondary to line placement. Had skin necrosis. S/P surgical debridement. Wound vac now. (3) Anemia associated with acute blood loss Code(s): D62 - ACUTE POSTHEMORRHAGIC ANEMIA Status: Acute Comment: drifting back down now. Continue to monitor. (4) Volume overload Code(s): E87.70 - FLUID OVERLOAD, UNSPECIFIED Status: Acute Comment: Improved (5) SVT (supraventricular tachycardia) Code(s): I47.1 - SUPRAVENTRICULAR TACHYCARDIA Status: Resolved Comment: now in sinus tachycardia (6) Anemia of renal disease Code(s): D63.1 - ANEMIA IN CHRONIC KIDNEY DISEASE Status: Chronic (7) Acute on chronic respiratory failure with hypoxia Code(s): J96.21 - ACUTE AND CHRONIC RESPIRATORY FAILURE WITH HYPOXIA Status: Resolved (8) COPD (chronic obstructive pulmonary disease) Status: Acute - Plan * Continue wound management for the next few days. * Anticipate possible discharge on Monday. * Continue hemodialysis. * Monitor h/h. * Pulmonary status appears stable. Continue oxygen.
--- NOTE | 2018-03-29 15:03 | PRG ---
DATE OF SERVICE: 03/28/2018 SUBJECTIVE: Ms. Ley is a 77-year-old white female with ESRD, being followed by [facility]al [facility] for maintenance hemodialysis. She underwent hemodialysis yesterday without any difficulty. She developed left groin hematoma last week and the hematoma is causing her some pain. Dr. Le will do a surgical evacuation of this hematoma this morning. The patient denies any chest pain or shortness of breath. OBJECTIVE: VITAL SIGNS: Blood pressure 146/69, heart rate 104, respiratory rate 18, temperature 98.6, and oxygen saturation 92%. GENERAL: Noted to be awake, alert, comfortable. Not in distress. SKIN: Adequate turgor. HEENT: She has pink, slightly pale conjunctivae. Anicteric sclerae. NECK: No neck mass. No carotid bruits. No JVD. CHEST: No deformities. LUNGS: Clear breath sounds. No wheezing. No crackles. HEART: Normal sinus rhythm. No murmur. No gallops. No rubs. ABDOMEN: Globular. Soft. Nontender. No masses. EXTREMITIES: No edema. No deformities. Positive for left groin hematoma. MEDICATIONS: Medications of March 28, 2018, reviewed. LABORATORY DATA: Laboratories of March 28, 2018, hemoglobin , hematocrit . Sodium 136, potassium 4, chloride 101, carbon dioxide 26, BUN 14, creatinine 2.05, glucose 88, and calcium 9. ASSESSMENT AND PLAN: 1. Left groin hematoma. Plan for surgical evacuation by Dr. Le. 2. Anemia, status post blood transfusion. Continue Epogen. Please note, Epogen was increased to 10,000 units weekly. 3. End-stage renal disease, stable. Continuing hemodialysis regimen. We will continue the Monday, , and Monday dialysis regimen. Job ID: [id number]
--- NOTE | 2018-03-29 20:39 | PRG ---
DATE OF SERVICE: 03/29/2018 SUBJECTIVE: Ms. Ley is doing well today. Left groin was changed today. There was no bleeding. The wound VAC was applied. I instructed Wound Care Team to avoid placing foam over the vascular area; however, the suction from the wound VAC, will approximate tissues. We will leave the wound VAC in place over the weekend and see the wound on Monday and if this looks good, she could be transferred to home. Discharge home. She can be up in chair and ambulate. Overall, she is doing well. OBJECTIVE: Vital Signs: 96.4, 110, 128/61. This morning, hemoglobin is 8.1. of the wound is granulating. ASSESSMENT: Left groin wound. PLAN: wound VAC with outpatient wound VAC care, home health nursing. However, she can be discharged home next week. Job ID: [id number]
[2018-03-29] MEDS: Doxepin HCl 25 MG CAP PO SCH (21:32)
[2018-03-29] MEDS: Atorvastatin Calcium 20 MG TAB PO SCH (21:32)
[2018-03-29] MEDS: Donepezil HCl 10 MG TAB PO SCH (21:32)
[2018-03-30 04:53] LABS: #Basophils 0.1 thou/uL (0.0-0.2); #Eosinphils 0.5 thou/uL (0.0-0.7); #Monocytes 1.9 thou/uL (0.11-0.59); #Neutrophils 10.7 thou/uL (1.40-6.50); %Basophils 0.6 % (0.0-1.0); %Eosinophils 3.2 % (0.0-10.0); %Lymphocytes 13.1 % (21.0-51.0); %Monocytes 12.4 % (0.0-10.0); %Neutrophils 70.6 % (42.0-75.0); Hemoglobin 7.9 g/dL (12.0-16.0); Mean Corpuscular HGB CONC 32.3 g/dL (32.0-36.0); Mean Corpuscular Hemoglobin 31.2 pg (27.0-31.0); Mean Corpuscular Volume 96.6 fL (78.0-98.0); Mean Platelet Volume 6.7 fL (7.4-10.4); Platelet Count 688 thou/uL (130-400); RBC Distribution Width 13.9 % (11.5-14.5); Red Blood Cell (RBC) Count 2.53 mill/uL (4.20-5.40); White Blood Cell (WBC) Count 15.1 thou/uL (4.8-10.8)
[2018-03-30 05:01] LABS: Anion Gap 9 mmol/L (10-20); BUN (Urea Nitrogen) 15 mg/dL (9.8-20.1); Calc. Creatinine Clearance 18 mL/min (70-130); Calcium 8.8 mg/dL (7.8-10.44); Carbon Dioxide 29 mmol/L (23-31); Chloride 98 mmol/L (98-107); Estimated GFR-MDRD 21; Glucose 101 mg/dL (83-110); Potassium 3.9 mmol/L (3.5-5.1); Sodium 132 mmol/L (136-145)
[2018-03-30] MEDS: Calcitriol 0.25 MCG CAP PO SCH (09:10)
[2018-03-30] MEDS: Folic Acid/Vit B Comp W-C PO SCH (09:11)
[2018-03-30] MEDS: Famotidine 20 MG TAB PO SCH (09:11)
[2018-03-30] MEDS: Cinacalcet HCl 30 MG TAB PO SCH (09:11)
[2018-03-30] MEDS: Iron Polysaccharides Complex 150 MG CAP PO SCH (09:11)
--- NOTE | 2018-03-30 10:28 | PRG ---
DATE OF SERVICE: 03/30/2018 SUBJECTIVE: Ms. Ley is a 77-year-old white female, followed up for maintenance hemodialysis. She is tolerating her current 3 times a week hemodialysis. In the interim, she had her left groin hematoma surgically explored by Dr. Le. A wound VAC has been applied. No new complaints today. No chest pain or shortness of breath. OBJECTIVE: VITAL SIGNS: Blood pressure is 120/59, heart rate 89, respiratory rate 19, temperature 98.6, and pulse ox 97%. GENERAL: Awake, alert, comfortable, not in distress. SKIN: Adequate turgor. HEENT: Slightly pale conjunctivae. Anicteric sclerae. NECK: No neck mass. No carotid bruits. No JVD. CHEST: No deformities. LUNGS: Clear breath sounds. No wheezing. No crackles. HEART: Normal sinus rhythm. No murmur. No gallops. No rubs. ABDOMEN: Globular, soft, nontender. No masses. EXTREMITIES: No edema. MEDICATIONS: Medications of March 30, 2018, reviewed. LABORATORY DATA: Laboratories of March 30, 2018, white count 15.1, hemoglobin 7.9. Sodium 132, potassium 3.9, chloride 98, carbon dioxide 29, BUN 15, creatinine 2.23, glucose 101, and calcium 8.8. ASSESSMENT AND PLAN: 1. End-stage renal disease, stable. Continuing current hemodialysis regimen. Fluid removal only as tolerated. 2. Anemia, p.r.n. blood transfusion. We are continuing Epogen. Please note Epogen was recently increased to 10,000 units subcu every week. 3. Left groin hematoma status post surgery - doing well. Surgery is following. Wound VAC has been applied. Agree with current management CBC again in a.m. Job ID: [id number]
--- NOTE | 2018-03-30 10:59 | PRG ---
DATE OF SERVICE: 03/30/2018 SUBJECTIVE: Tri Ley is doing well today. Temperature 97.9 degrees, pulse 90, blood pressure 127/60. Hemoglobin this morning is 7.9, unchanged significantly from 8.1 yesterday. Wound VAC canister is dry. There is no bleeding. Wound VAC is in place. The patient is comfortable with good pain control. ASSESSMENT AND PLAN: Left groin wound. Would continue wound VAC. Would change that on Monday. Reassess her wound and I think probably on Monday, she could plan discharge to rehab, residential or home per rn case manager hospice and family's decided plan. General Surgery will see her over the weekend as needed. Dr. Jurado is covering. Please call, if necessary. Job ID: [id number]
--- NOTE | 2018-03-30 20:36 | PDOC.PN ---
- Subjective Encounter Start Date: 03/30/18 Encounter Start Time: 11:00 Doing well. Has no complaints today Breathing well. - Objective Resuscitation Status - Order Detail: 03/27/18 12:51 Resuscitation Status Routine Resuscitation Status: FULL: Full Resuscitation Discussed with: per previous order Vital Signs & Weight: Vital Signs (12 hours) Temp Pulse Pulse Pulse Resp BP BP 03/30/18 18:25 81 16 03/30/18 16:31 98.0 F 85 18 03/30/18 13:56 85 18 03/30/18 12:30 98.0 F 85 16 03/30/18 09:08 97.9 F 90 19 03/30/18 08:40 90 92 127/60 132/66 BP Pulse Ox 03/30/18 18:25 03/30/18 16:31 103/56 L 03/30/18 13:56 90 L 03/30/18 12:30 126/57 L 100 03/30/18 09:08 127/60 97 03/30/18 08:40 Weight Admit Weight 126 lb 4.8 oz Weight 120 lb 5.958 oz Most Recent Monitor Data Heart Rate from ECG 97 NIBP 137/59 NIBP BP-Mean 78 Respiration from ECG 18 SpO2 96 I&O: 03/29/18 03/30/18 03/31/18 06:59 06:59 06:59 Intake Total 960 1760 1440 Output Total 0 1785 15 Balance 960 -25 1425 Result Diagrams: 03/30/18 04:16 03/30/18 04:16 Phys Exam - Physical Examination Constitutional: NAD Respiratory: no wheezing, no rhonchi Scattered rales. Diminished. Cardiovascular: RRR II/ M Gastrointestinal: soft, non-tender, no distention, positive bowel sounds Left groin wound vac. Dx/Plan (1) ESRD on peritoneal dialysis Code(s): N18.6 - END STAGE RENAL DISEASE; Z99.2 - DEPENDENCE ON RENAL DIALYSIS Status: Chronic Comment: transitioned to hemodialysis during this hospitalization (2) Groin hematoma Code(s): S30.1XXA - CONTUSION OF ABDOMINAL WALL, INITIAL ENCOUNTER Status: Acute Comment: Secondary to line placement. Had skin necrosis. S/P surgical debridement. Wound vac now. (3) Anemia associated with acute blood loss Code(s): D62 - ACUTE POSTHEMORRHAGIC ANEMIA Status: Acute Comment: drifting back down now. Continue to monitor. (4) Volume overload Code(s): E87.70 - FLUID OVERLOAD, UNSPECIFIED Status: Acute Comment: Improved (5) SVT (supraventricular tachycardia) Code(s): I47.1 - SUPRAVENTRICULAR TACHYCARDIA Status: Resolved Comment: now in sinus tachycardia (6) Anemia of renal disease Code(s): D63.1 - ANEMIA IN CHRONIC KIDNEY DISEASE Status: Chronic (7) Acute on chronic respiratory failure with hypoxia Code(s): J96.21 - ACUTE AND CHRONIC RESPIRATORY FAILURE WITH HYPOXIA Status: Resolved (8) COPD (chronic obstructive pulmonary disease) Status: Acute - Plan * Continue HD. * Continue wound vac. * Likely replace wound vac dressing on Monday and possibly DC then.
[2018-03-30] MEDS: Atorvastatin Calcium 20 MG TAB PO SCH (21:13)
[2018-03-30] MEDS: Doxepin HCl 25 MG CAP PO SCH (21:13)
[2018-03-30] MEDS: Donepezil HCl 10 MG TAB PO SCH (21:13)
[2018-03-31 05:26] LABS: #Basophils 0.1 thou/uL (0.0-0.2); #Eosinphils 0.6 thou/uL (0.0-0.7); #Lymphocytes 2.2 thou/uL (1.20-3.40); #Monocytes 1.7 thou/uL (0.11-0.59); #Neutrophils 9.7 thou/uL (1.40-6.50); %Basophils 0.6 % (0.0-1.0); %Eosinophils 4.3 % (0.0-10.0); %Lymphocytes 15.5 % (21.0-51.0); %Monocytes 12.1 % (0.0-10.0); %Neutrophils 67.5 % (42.0-75.0); Hemoglobin 7.8 g/dL (12.0-16.0); Mean Corpuscular HGB CONC 31.1 g/dL (32.0-36.0); Mean Corpuscular Hemoglobin 30.1 pg (27.0-31.0); Mean Corpuscular Volume 96.8 fL (78.0-98.0); Mean Platelet Volume 6.7 fL (7.4-10.4); Platelet Count 747 thou/uL (130-400); RBC Distribution Width 13.9 % (11.5-14.5); Red Blood Cell (RBC) Count 2.58 mill/uL (4.20-5.40); White Blood Cell (WBC) Count 14.3 thou/uL (4.8-10.8)
[2018-03-31 05:38] LABS: Anion Gap 10 mmol/L (10-20); BUN (Urea Nitrogen) 22 mg/dL (9.8-20.1); Calc. Creatinine Clearance 13 mL/min (70-130); Calcium 8.9 mg/dL (7.8-10.44); Carbon Dioxide 29 mmol/L (23-31); Chloride 97 mmol/L (98-107); Estimated GFR-MDRD 14; Glucose 106 mg/dL (83-110); Potassium 4.3 mmol/L (3.5-5.1); Sodium 132 mmol/L (136-145)
--- NOTE | 2018-03-31 10:58 | PRG ---
DATE OF SERVICE: 03/31/2018 SUBJECTIVE: Ms. Ley is a 77-year-old white female with ESRD and currently undergoing hemodialysis. I am at the bedside supervising her dialysis. She had left groin wound and surgical exploration has been done. Currently, on wound VAC. No other complaints. No chest pain or shortness of breath. OBJECTIVE: VITAL SIGNS: Blood pressure is 115/58, heart rate 89, respiratory rate 18, temperature 98.4, pulse ox 98%. GENERAL: Noted to be awake, alert, comfortable, not in distress. SKIN: Adequate turgor. HEENT: Pinkish conjunctivae. Anicteric sclerae. Decreased hearing. NECK: No neck mass. No carotid bruits. No JVD. LUNGS: Decreased breath sounds. HEART: Normal sinus rhythm. No murmurs, gallops, or rubs. ABDOMEN: Globular, soft, nontender. No masses. EXTREMITIES: No edema. No deformities. Left groin wound VAC. MEDICATIONS: Medications of March 31, 2018, reviewed. LABORATORY DATA: Laboratories of March 31, 2018, hemoglobin 7.8. Sodium 132, potassium 4.3, chloride 97, carbon dioxide 29, BUN 22, creatinine 3.16. ASSESSMENT AND PLAN: 1. End-stage renal disease, stable. We will continue 3 times a week hemodialysis. Fluid removal only as tolerated. 2. Anemia, stabilizing. Continuing weekly Epogen of 10,000 units subcu every week. 3. Left groin wound - currently on wound VAC, status post surgical exploration. Overall, agree with current management. Recheck CBC in a.m. Job ID: [id number]
[2018-03-31] MEDS: Calcitriol 0.25 MCG CAP PO SCH (12:51)
[2018-03-31] MEDS: Famotidine 20 MG TAB PO SCH (12:54)
[2018-03-31] MEDS: Folic Acid/Vit B Comp W-C PO SCH (12:54)
[2018-03-31] MEDS: Iron Polysaccharides Complex 150 MG CAP PO SCH (12:55)
[2018-03-31] MEDS: Cinacalcet HCl 30 MG TAB PO SCH (12:55)
--- NOTE | 2018-03-31 14:42 | PDOC.PN ---
- Subjective Encounter Start Date: 03/31/18 Encounter Start Time: 11:55 Doing well. No complaints. - Objective Resuscitation Status - Order Detail: 03/27/18 12:51 Resuscitation Status Routine Resuscitation Status: FULL: Full Resuscitation Discussed with: per previous order Vital Signs & Weight: Vital Signs (12 hours) Temp Pulse Resp BP Pulse Ox 03/31/18 13:50 78 18 96 03/31/18 12:00 98.2 F 89 16 109/56 L 97 03/31/18 08:00 98 03/31/18 07:55 98.4 F 89 18 115/58 L 98 03/31/18 07:52 88 16 98 03/31/18 03:23 98.6 F 92 20 116/59 L 92 L Weight Admit Weight 126 lb 4.8 oz Weight 121 lb 3.2 oz Most Recent Monitor Data Heart Rate from ECG 97 NIBP 137/59 NIBP BP-Mean 78 Respiration from ECG 18 SpO2 96 I&O: 03/30/18 03/31/18 04/01/18 06:59 06:59 06:59 Intake Total 1760 1440 Output Total 1785 25 10 Balance -25 1415 -10 Result Diagrams: 04/01/18 04:47 03/31/18 04:49 Phys Exam - Physical Examination Constitutional: NAD Respiratory: no wheezing, no rales Diminished. Cardiovascular: RRR II/ Murmur Gastrointestinal: soft, non-tender, no distention, positive bowel sounds Musculoskeletal: no edema Left groin wound vac. RUE AV fistula site healthy. Psychiatric: normal affect, A&O x 3 Dx/Plan (1) ESRD on peritoneal dialysis Code(s): N18.6 - END STAGE RENAL DISEASE; Z99.2 - DEPENDENCE ON RENAL DIALYSIS Status: Chronic Comment: transitioned to hemodialysis during this hospitalization. Has right femoral trialysis catheter and RUE fistula healing. (2) Groin hematoma Code(s): S30.1XXA - CONTUSION OF ABDOMINAL WALL, INITIAL ENCOUNTER Status: Acute Comment: Secondary to line placement. Had skin necrosis. S/P surgical debridement. Wound vac now. Plan to change wound vac on Monday and then hopefully discharge. (3) Anemia associated with acute blood loss Code(s): D62 - ACUTE POSTHEMORRHAGIC ANEMIA Status: Acute Comment: drifting back down now. Continue to monitor. (4) Volume overload Code(s): E87.70 - FLUID OVERLOAD, UNSPECIFIED Status: Acute Comment: Improved (5) SVT (supraventricular tachycardia) Code(s): I47.1 - SUPRAVENTRICULAR TACHYCARDIA Status: Resolved Comment: now in sinus tachycardia (6) Anemia of renal disease Code(s): D63.1 - ANEMIA IN CHRONIC KIDNEY DISEASE Status: Chronic (7) Acute on chronic respiratory failure with hypoxia Code(s): J96.21 - ACUTE AND CHRONIC RESPIRATORY FAILURE WITH HYPOXIA Status: Resolved (8) COPD (chronic obstructive pulmonary disease) Status: Acute - Plan * Above.
[2018-03-31] MEDS: Doxepin HCl 25 MG CAP PO SCH (20:50)
[2018-03-31] MEDS: Atorvastatin Calcium 20 MG TAB PO SCH (20:50)
[2018-03-31] MEDS: Donepezil HCl 10 MG TAB PO SCH (20:50)
[2018-04-01 05:42] LABS: #Basophils 0.1 thou/uL (0.0-0.2); #Eosinphils 0.5 thou/uL (0.0-0.7); #Lymphocytes 1.8 thou/uL (1.20-3.40); #Monocytes 1.5 thou/uL (0.11-0.59); #Neutrophils 9.9 thou/uL (1.40-6.50); %Basophils 0.4 % (0.0-1.0); %Eosinophils 3.5 % (0.0-10.0); %Lymphocytes 13.4 % (21.0-51.0); %Monocytes 10.7 % (0.0-10.0); %Neutrophils 71.9 % (42.0-75.0); Hemoglobin 7.7 g/dL (12.0-16.0); Mean Corpuscular HGB CONC 31.8 g/dL (32.0-36.0); Mean Corpuscular Hemoglobin 30.7 pg (27.0-31.0); Mean Corpuscular Volume 96.4 fL (78.0-98.0); Mean Platelet Volume 6.8 fL (7.4-10.4); Platelet Count 700 thou/uL (130-400); RBC Distribution Width 13.9 % (11.5-14.5); Red Blood Cell (RBC) Count 2.51 mill/uL (4.20-5.40); White Blood Cell (WBC) Count 13.7 thou/uL (4.8-10.8)
[2018-04-01] MEDS: Calcitriol 0.25 MCG CAP PO SCH (08:21)
[2018-04-01] MEDS: Folic Acid/Vit B Comp W-C PO SCH (08:21)
[2018-04-01] MEDS: Famotidine 20 MG TAB PO SCH (08:21)
[2018-04-01] MEDS: Cinacalcet HCl 30 MG TAB PO SCH (08:21)
[2018-04-01] MEDS: Iron Polysaccharides Complex 150 MG CAP PO SCH (08:21)
[2018-04-01] MEDS: Atorvastatin Calcium 20 MG TAB PO SCH (21:07)
[2018-04-01] MEDS: Donepezil HCl 10 MG TAB PO SCH (21:07)
[2018-04-01] MEDS: Doxepin HCl 25 MG CAP PO SCH (21:08)
--- NOTE | 2018-04-01 23:26 | PDOC.PN ---
- Subjective Encounter Start Date: 04/01/18 Encounter Start Time: 08:40 Doing very well. Wants to go back home tomorrow. Has been living independently. - Objective Resuscitation Status - Order Detail: 03/27/18 12:51 Resuscitation Status Routine Resuscitation Status: FULL: Full Resuscitation Discussed with: per previous order Vital Signs & Weight: Vital Signs (12 hours) Temp Pulse Resp BP Pulse Ox 04/01/18 20:00 99.5 F 82 20 122/71 100 04/01/18 19:29 82 14 100 04/01/18 16:00 98.2 F 83 20 106/58 L 100 04/01/18 13:58 83 18 100 04/01/18 12:00 98.4 F 83 20 123/72 100 Weight Admit Weight 126 lb 4.8 oz Weight 135 lb 2 oz Most Recent Monitor Data Heart Rate from ECG 97 NIBP 137/59 NIBP BP-Mean 78 Respiration from ECG 18 SpO2 96 I&O: 03/31/18 04/01/18 04/02/18 06:59 06:59 06:59 Intake Total 1440 1680 450 Output Total 25 10 Balance 1415 1670 450 Result Diagrams: 04/01/18 04:47 03/31/18 04:49 Phys Exam - Physical Examination Constitutional: NAD Respiratory: no wheezing, no rales, no rhonchi, clear to auscultation bilateral Cardiovascular: RRR, no significant murmur Gastrointestinal: soft, non-tender, no distention, positive bowel sounds Musculoskeletal: no edema Left groin wound vac. Psychiatric: normal affect Dx/Plan (1) ESRD on peritoneal dialysis Code(s): N18.6 - END STAGE RENAL DISEASE; Z99.2 - DEPENDENCE ON RENAL DIALYSIS Status: Chronic Comment: transitioned to hemodialysis during this hospitalization. Has right femoral trialysis catheter and RUE fistula healing. (2) Groin hematoma Code(s): S30.1XXA - CONTUSION OF ABDOMINAL WALL, INITIAL ENCOUNTER Status: Acute Comment: Secondary to line placement. Had skin necrosis. S/P surgical debridement. Wound vac now. Plan to change wound vac on Monday and then hopefully discharge. (3) Anemia associated with acute blood loss Code(s): D62 - ACUTE POSTHEMORRHAGIC ANEMIA Status: Acute Comment: drifting back down now. Continue to monitor. (4) Volume overload Code(s): E87.70 - FLUID OVERLOAD, UNSPECIFIED Status: Acute Comment: Improved (5) SVT (supraventricular tachycardia) Code(s): I47.1 - SUPRAVENTRICULAR TACHYCARDIA Status: Resolved Comment: now in sinus tachycardia (6) Anemia of renal disease Code(s): D63.1 - ANEMIA IN CHRONIC KIDNEY DISEASE Status: Chronic (7) Acute on chronic respiratory failure with hypoxia Code(s): J96.21 - ACUTE AND CHRONIC RESPIRATORY FAILURE WITH HYPOXIA Status: Resolved (8) COPD (chronic obstructive pulmonary disease) Status: Acute - Plan * Plan for wound vac dressing change tomorrow. * If she needs to continue with the wound vac, she may need to consider a snf closer to home. If not, she may be able to go home without additional rehab or fdc.
--- NOTE | 2018-04-02 07:50 | PRG ---
DATE OF SERVICE: SUBJECTIVE: Ms. Ley is a 77-year-old white female, being followed up for maintenance hemodialysis. She received dialysis yesterday without any difficulty. No new complaints today. She also had an exploration of her left groin hematoma. Currently, a wound VAC is placed there. No other complaints today. OBJECTIVE: VITAL SIGNS: Blood pressure is 128/72, heart rate 84, respiratory rate 16, pulse ox 94% on 1.5 L of nasal cannula. GENERAL: Awake, alert, comfortable, not in distress. SKIN: Adequate turgor. HEENT: Slightly pale conjunctivae. Anicteric sclerae. NECK: No neck mass. No carotid bruits. No JVD. CHEST: No deformities. LUNGS: Clear breath sounds. No wheezing. No crackles. HEART: Normal sinus rhythm. No murmurs. No gallops. No rubs. ABDOMEN: Globular, soft, nontender. No masses. EXTREMITIES: No edema. No deformities. She has a positive wound VAC on the left groin. MEDICATIONS: Medications of April 01, 2018, was reviewed. LABORATORY DATA: Laboratories of April 01, 2018, white count 13.7, hemoglobin 7.7. On March 31, 2018, sodium 132, potassium 4.3, chloride 97, carbon dioxide 29, BUN 22, creatinine 3.16, glucose 106, calcium 8.9. ASSESSMENT AND PLAN: 1. End-stage renal disease, stable. Continue current Monday, , and Monday dialysis regimen. Again, fluid removal as tolerated. 2. Anemia - p.r.n. blood transfusion - on weekly Epogen. Please note, we have increased the Epogen to 10,000 units subcu every week last week. 3. Left groin hematoma - status post surgical exploration. Currently, on wound VAC. Agree with current management. Possible discharge early this week. Job ID: [id number]
[2018-04-02] MEDS: Iron Polysaccharides Complex 150 MG CAP PO SCH (08:25)
[2018-04-02] MEDS: Calcitriol 0.25 MCG CAP PO SCH (08:25)
[2018-04-02] MEDS: Famotidine 20 MG TAB PO SCH (08:26)
[2018-04-02] MEDS: Cinacalcet HCl 30 MG TAB PO SCH (08:26)
[2018-04-02] MEDS: Folic Acid/Vit B Comp W-C PO SCH (08:26)
--- NOTE | 2018-04-02 12:02 | PRG ---
DATE OF SERVICE: 04/02/2018 SUBJECTIVE: Tri Ley is doing well today. She is awake and alert. Temperature 99.3 degrees and blood pressure 97/58. Left thigh wound is granulating and healing. There is no active infection. The area of the wound overlying the femoral triangle with repaired vein is adherent and sequestered. ASSESSMENT AND PLAN: Left thigh wound. It is safe to transfer the patient to a alf rehab in [place] with wound VAC care, left thigh. We will see in my office in 2 to 3 weeks and I will see her as needed in this hospitalization. Please call if needed. She has a good thrill and bruit in her right arm fistula. She should follow up in my office in 3 to 4 weeks. Job ID: [id number]
[2018-04-02 13:55] VITALS: BMI 23.2
[2018-04-02 16:13] VITALS: BP 126/69; TEMP 97.8
== END 2018-04-02 18:22 | DRG 622 ==
LOC: ERS 16:37 → 2SE 18:40 → CCU 03-16 13:07 → 2SE 03-17 11:26 → 2NO 03-21 11:33 → T4-A 03-31 14:39
PROVIDERS: ADMIT Internal Medicine; ATTEND Internal Medicine
PROC: 0JBM0ZZ Excision of Left Upper Leg Subcutaneous Tissue and Fascia, Open Approach (ICD-10-PCS; principal; 2018-03-13)
PROC: 06QN0ZZ Repair Left Femoral Vein, Open Approach (ICD-10-PCS; 2018-03-13)
PROC: 5A1D70Z Performance of Urinary Filtration, Intermittent, Less than 6 Hours Per Day (ICD-10-PCS; 2018-03-13)
PROC: 031B0ZF Bypass Right Radial Artery to Lower Arm Vein, Open Approach (ICD-10-PCS; 2018-03-16)
PROC: 0JHN3XZ Insertion of Tunneled Vascular Access Device into Right Lower Leg Subcutaneous Tissue and Fascia, Percutaneous Approach (ICD-10-PCS; 2018-03-16)
PROC: 06HM33Z Insertion of Infusion Device into Right Femoral Vein, Percutaneous Approach (ICD-10-PCS; 2018-03-16)
PROC: B54BZZA Ultrasonography of Right Lower Extremity Veins, Guidance (ICD-10-PCS; 2018-03-16)
PROC: 0JHP3XZ Insertion of Tunneled Vascular Access Device into Left Lower Leg Subcutaneous Tissue and Fascia, Percutaneous Approach (ICD-10-PCS; 2018-03-16)
PROC: 06HN33Z Insertion of Infusion Device into Left Femoral Vein, Percutaneous Approach (ICD-10-PCS; 2018-03-16)
PROC: B54CZZA Ultrasonography of Left Lower Extremity Veins, Guidance (ICD-10-PCS; 2018-03-16)
PROC: 0WPGX3Z Removal of Infusion Device from Peritoneal Cavity, External Approach (ICD-10-PCS; 2018-03-16)
PROC: 30233N1 Transfusion of Nonautologous Red Blood Cells into Peripheral Vein, Percutaneous Approach (ICD-10-PCS; 2018-03-21)
PROC: 0JCC0ZZ Extirpation of Matter from Pelvic Region Subcutaneous Tissue and Fascia, Open Approach (ICD-10-PCS; 2018-03-28)
DX: E87.70 Fluid overload, unspecified (principal); N18.6 End stage renal disease; J96.21 Acute and chronic respiratory failure with hypoxia; N25.81 Secondary hyperparathyroidism of renal origin; I24.8 Other forms of acute ischemic heart disease; I47.2 Ventricular tachycardia; D62 Acute posthemorrhagic anemia; I50.32 Chronic diastolic (congestive) heart failure; I96 Gangrene, not elsewhere classified; L03.314 Cellulitis of groin; J90 Pleural effusion, not elsewhere classified; Z99.81 Dependence on supplemental oxygen; S30.1XXA Contusion of abdominal wall, initial encounter; Z99.2 Dependence on renal dialysis; Z88.0 Allergy status to penicillin; Z88.1 Allergy status to other antibiotic agents; Z79.899 Other long term (current) drug therapy; J44.9 Chronic obstructive pulmonary disease, unspecified; Z87.891 Personal history of nicotine dependence; K27.9 Peptic ulcer, site unspecified, unspecified as acute or chronic, without hemorrhage or perforation; L76.82 Other postprocedural complications of skin and subcutaneous tissue; Y71.1 Therapeutic (nonsurgical) and rehabilitative cardiovascular devices associated with adverse incidents; Y92.239 Unspecified place in hospital as the place of occurrence of the external cause; R53.81 Other malaise
CPT/HCPCS: 36415; 36416; 36430; 70450; 71045; 74176; 80048; 80053; 82553; 82805; 83735; 83880; 84484; 85014; 85018; 85025; 85049; 86850; 86900; 86901; 87070; 87205; 90935; 90945; 93005; 93306; 93798; 94002; 94003; 94640; C1752; C1769; G0257; G8978-GP-CL; G8979-GP-CI; G8987-GO-CL; G8988-GO-CK; J1642; J1644; J2001; J2250; J2405; J2704; J2720; J3010; J7050; J7506; J7611; J7620; P9016; Q4081